=== PATIENT | female | born 1970 | race Caucasian/White ===

== ENCOUNTER → 2018-06-19 11:03 | Outpatient (CLI) | payer OTHER, SELFPAY ==
[2018-06-19 12:20] LABS: Hemoglobin A1C% w Est Avg Glu 9.6 % (4.0-6.0)
[2018-06-19 12:21] LABS: Add Manual Diff / Slide Review NO; Basophils Percent Auto 0.6 % (0-2); Eosinophils Percent Auto 1.9 % (2-4); Lymphocytes Percent Auto 16.4 % (25-40); Mean Corpuscular HGB Conc 33.4 % (30-36); Mean Corpuscular Hemoglobin 28.7 PG (26-34); Monocytes Percent Auto 8.2 % (3-14); Neutrophils Absolute Auto 8500 /uL (3000-5900); Neutrophils Percent Auto 72.9 % (50-75); Platelet Count 403 X10^3/uL (150-400); Red Blood Cell Count 4.54 X10^6/uL (4.0-5.2); Red Cell Distribution Width 14.7 % (11.6-14.8); White Blood Cell Count 11.7 X10^3/uL (4.5-11.0)
[2018-06-19 12:28] LABS: Alanine Aminotransferase 31 IU/L (9-52); Albumin 4.4 g/dL (3.5-5.0); Albumin Globulin Ratio 1.2 (1.0-2.8); Alkaline Phosphatase 88 U/L (38-126); Aspartate Aminotransferase 31 IU/L (14-36); BUN Creatinine Ratio 11.4 (6-22); Bilirubin Total 0.5 mg/dL (0.2-1.3); Blood Urea Nitrogen 8 mg/dL (7-17); Calcium 9.4 mg/dL (8.4-10.2); Carbon Dioxide 27 mmol/L (22-32); Chloride 96 mmol/L (98-107); Cholesterol 240 mg/dL (140-199); Estimated Glomerular Filt Rate > 60.0 mL/min (>60); Globulin 3.6 g/dL (1.7-4.1); Glucose 207 mg/dL (70-100); HDL Cholesterol 56 mg/dL (40-60); HEMOLYSIS < 15 (0-50); LDL Cholesterol Calculated 125 mg/dL (<100); Potassium 5.3 mmol/L (3.4-5.1); Sodium 135 mmol/L (137-145); Triglycerides 293 mg/dL (35-150)
== END ==
PROVIDERS: Visit Provider Internal Medicine
DX: E10.9 Type 1 diabetes mellitus without complications (principal); E73.9 Lactose intolerance, unspecified
CPT/HCPCS: 36415; 80053; 80061; 83036; 85025

== ENCOUNTER → 2018-07-23 11:26 | Outpatient (CLI) | payer OTHER, SELFPAY | PROVIDERS: PCP Family Medicine | DX: Z23 Encounter for immunization (principal) | CPT/HCPCS: 90471; 90686 ==

== ENCOUNTER → 2018-09-14 09:51 | Outpatient (CLI) | payer OTHER, SELFPAY ==
--- NOTE | 2018-09-14 09:52 | DI.MG.S_ITS ---
BILATERAL DIGITAL SCREENING MAMMOGRAM 3D/2D WITH CAD: 09/14/2018 CLINICAL: Baseline exam. Routine screening. Family history of breast cancer. No prior exams were available for comparison. There are scattered fibroglandular elements in both breasts. Current study was also evaluated with a Computer Aided Detection (CAD) system. There is a 1.2 cm oval circumscribed mass in the upper outer left breast at posterior depth demonstrating central fat attenuation consistent with a benign lymph node in the left breast. No significant masses, calcifications, or other findings are seen in either breast. IMPRESSION: There is no mammographic evidence of malignancy. A 1 year screening mammogram is recommended. This exam was interpreted at Station ID: [id number]. NOTE: For mammograms, a report in lay terms will be sent to the patient. Approximately 15% of breast malignancies will not be visualized mammographically. In the management of a palpable breast mass, a negative mammogram must not discourage biopsy of a clinically suspicious lesion. Electronically Signed By: Cedric Wolfe M.D. ecl/:09/16/2018 09:37:06 letter sent: Normal Exam ACR BI-RADS Category 2: Benign Finding(s) 3342F
== END ==
PROVIDERS: PCP Family Medicine; Visit Provider Family Medicine
DX: Z12.31 Encounter for screening mammogram for malignant neoplasm of breast (principal); Z80.3 Family history of malignant neoplasm of breast
CPT/HCPCS: 77063; 77067

== ENCOUNTER → 2018-10-28 12:51 | Outpatient (CLI) | payer OTHER, SELFPAY ==
--- NOTE | 2018-10-28 12:54 | DI.RAD.S_ITS ---
PROCEDURE: XR FINGER RT MIN 2V INDICATIONS: Finger swelling post cut 2wks TECHNIQUE: AP hand, 2 views of the fourth finger(s) acquired. COMPARISON: None. FINDINGS: Bones: No fractures or dislocations. No suspicious bony lesions. Soft tissues: No suspicious soft tissue calcifications. There is swelling over the dorsal aspect of the fourth proximal interphalangeal joint without visualized foreign body or underlying osteomyelitis. IMPRESSION: Focal soft tissue swelling as discussed, fourth proximal interphalangeal joint region dorsally. No osteomyelitis. Dictated by: Casper Shah M.D. on 10/28/2018 at 13:24 Approved by: Casper Shah M.D. on 10/28/2018 at 13:25
== END ==
PROVIDERS: PCP Family Medicine; Visit Provider Physician Assistant
DX: M79.644 Pain in right finger(s) (principal); M79.89 Other specified soft tissue disorders
CPT/HCPCS: 73140

== ENCOUNTER 2018-10-29 15:23 | Emergency (ER) | payer OTHER, SELFPAY ==
[2018-10-29 15:29] VITALS: BP 151/93; PULSE 85; RESP 14; TEMP 37.2; O2SAT 100; BMI 31.3
--- NOTE | 2018-10-29 17:52 | ED_ITS ---
HPI - Extremity Injury (Upper) <WILLIAMS Jacobs - Last Filed: 10/29/18 22:01> General Chief Complaint: Extremity Injury, Upper Stated Complaint: RIGHT HAND RING FINGER INFECTION Time Seen by Provider: 10/29/18 17:19 Source: patient Mode of arrival: ambulatory Limitations: no limitations History of Present Illness HPI narrative: 48-year-old female with history of diabetes and is a nonsmoker here for complaint of worsening swelling and pain into her right ring finger. She states that she accidentally cut the finger right before [place] approximately 3 weeks ago and she has had pain and redness to that area since then. She reports the pain worsened today. She denies any drainage from the area. Increased pain with motion of the right finger. No fevers no chills. She was seen in the walk-in clinic yesterday with x-ray that did not show any bony involvement. She states that her tetanus is up-to-date. No other concerns or complaints at this timeframe. complaint: injury to: right and finger Related Data Home Medications Medication Instructions Recorded Confirmed duloxetine 60 mg PO DAILY 10/29/18 10/29/18 Previous Rx's Medication Instructions Recorded insulin aspart U-100 100 unit/mL 100 unit CONTINUOUS SUBCUTANEOUS 06/19/18 subcutaneous solution INFUSION DAILY #30 ml [CONTOUR TEST STRIPS ] #150 strip 08/21/18 metformin 500 mg tablet 500 mg PO BID #180 tab 09/06/18 clindamycin HCl 300 mg PO QID #28 cap 10/29/18 Allergies Allergy/AdvReac Type Severity Reaction Status Date / Time amoxicillin Allergy Mild HIVES Verified 10/29/18 15:29 Sulfa (Sulfonamide Allergy Mild HIVES/RASH Verified 10/29/18 15:29 Antibiotics) Review of Systems <WILLIAMS Jacobs - Last Filed: 10/29/18 22:01> Constitutional Denies chills, Denies fever(s), Denies lethargy and Denies weakness Eyes Denies change in vision, Denies eye discharge, Denies irritation and Denies loss of vision ENT Ears, Nose, Mouth, and Throat: Denies change in voice, Denies neck pain and Denies sore throat Cardiovascular Denies chest pain, Denies irregular heart rhythm, Denies lightheadedness, Denies palpitations, Denies dyspnea, Denies dyspnea on exertion and Denies orthopnea Respiratory Denies cough, Denies dyspnea, Denies dyspnea on exertion and Denies wheezing Gastrointestinal Gastrointestinal: Denies abdominal pain, Denies change in bowel habits, Denies diarrhea, Denies nausea and Denies vomiting Genitourinary Denies hematuria, Denies flank pain, Denies urinary incontinence and Denies urinary urgency Musculoskeletal Denies neck pain Comments: Swelling and redness worsening to right ring finger Integumentary/Breasts Denies pruritus, Denies erythema, Denies rash and Denies wounds Neurologic Denies confusion, Denies loss of vision and Denies weakness Psychiatric Denies anxiety, Denies confusion, Denies depression, Denies homicidal ideation and Denies suicidal ideation Endocrine Denies palpitations Allergic/Immunologic Denies wheezing Exam <WILLIAMS Jacobs - Last Filed: 10/29/18 22:01> Initial Vital Signs Initial Vital Signs: Vital Signs Temperature 98.9 F 10/29/18 15:29 Pulse Rate 85 10/29/18 15:29 Respiratory Rate 14 10/29/18 15:29 Blood Pressure 151/93 H 10/29/18 15:29 Pulse Oximetry 100 10/29/18 15:29 Const General: cooperative and well developed Nutritional Appearance: well nourished Orientation: alert, awake, oriented x3 and not confused HENMT Face and sinus: sinus tenderness Mouth: oral mucosae normal and moist mucous membranes Eyes Conjunctivae: conjunctivae normal Sclera: sclerae normal Pupils: PERRL EOM: EOM intact bilaterally Resp Effort & Inspection: normal respiratory effort, able to speak in complete sentences, no respiratory distress and no use of accessory muscles Auscultation: clear to auscultation bilaterally, no rales, no rhonchi and no wheezes Cardio Rate: regular rate Rhythm: regular rhythm Heart Sounds: no click, no gallops, no murmurs and no rubs Pulses: normal peripheral pulses Skin General: no rashes or lesions noted, No jaundice and No petechiae Neuro General: alert, oriented x3, gait normal and no focal motor deficits Speech: speech normal Extrem Other: Swelling and redness to the dorsal aspect of the right ring finger over the PIP joint. No induration or fluctuance. Distal sensation is intact. Distal range of motion is intact. Distal cap refill less than 2 sec. <Giselle Marino DO - Last Filed: 10/30/18 21:55> Initial Vital Signs Initial Vital Signs: Vital Signs Temperature 98.9 F 10/29/18 15:29 Pulse Rate 85 10/29/18 15:29 Respiratory Rate 14 10/29/18 15:29 Blood Pressure 151/93 H 10/29/18 15:29 Pulse Oximetry 100 10/29/18 15:29 Procedures <WILLIAMS Jacobs - Last Filed: 10/29/18 22:01> Abscess I/D Site: other (Right ring finger) Side (if applicable): right Local Anesthetic: lidocaine 1% Amount of anesthesia used (mL): 2 Technique: needle aspiration Amount of fluid expressed (mL): 2 Irrigation: No Packing used?: none Course <WILLIAMS Jacobs - Last Filed: 10/29/18 22:01> Orders Ordered: ED Orders 10/29/18 19:54 Wound Culture and Gram Stain Stat Vital Signs - 8 hr 10/29/18 15:29 10/29/18 17:56 Temperature 98.9 F Pulse Rate 85 83 Respiratory Rate 14 16 Blood Pressure 151/93 H Blood Pressure [Left Arm] 138/83 Pulse Oximetry 100 98 <Giselle Marino DO - Last Filed: 10/30/18 21:55> Orders Ordered: ED Orders 10/29/18 19:54 Wound Culture and Gram Stain Stat Vital Signs - 8 hr 10/29/18 15:29 10/29/18 17:56 Temperature 98.9 F Pulse Rate 85 83 Respiratory Rate 14 16 Blood Pressure 151/93 H Blood Pressure [Left Arm] 138/83 Pulse Oximetry 100 98 MDM - Extremity Injury (Upper) <WILLIAMS Jacobs - Last Filed: 10/29/18 22:01> Lab Data Point of Care Testing Glucose POC 141 MDM Narrative Medical decision making narrative: Small incision was made to the dorsal aspect of the right ring finger and small amount of purulent drainage was removed. She is placed on clindamycin to treat for cellulitis/abscess. [id number] Tylenol or Motrin as needed for any discomfort. Follow up with primary care provider in the next few days for re-evaluation. For any worsening symptoms return to the emergency room. Wound culture was obtained and is pending for sensitivities <Giselle Marino DO - Last Filed: 10/30/18 21:55> Lab Data Point of Care Testing Glucose POC 141 Discharge Plan Departure Patient Disposition: Home Clinical Impression: Abscess of right ring finger Discharge Date/Time: 10/29/18 20:04 Interventions: ED Discharge Assessment Last Done: 10/29/18 20:03 Instructions: Incision and Drainage of a Skin Abscess Activity Restrictions/Additional Instructions: Small incision was made into the swelling to the right ring finger with a small amount of purulent drainage was removed. Wound culture is obtained and is pending for sensitivity. Follow up with primary care provider in the next several days for re-evaluation. You are prescribed an antibiotic called clindamycin use as directed. Use [id number] Tylenol or Motrin as needed for any discomfort. Dress wound daily with bacitracin and dressing until healed. For any worsening symptoms return emergency room. Prescriptions: New clindamycin HCl 300 mg capsule 300 mg PO QID Qty: 28 RF: 0 No Action insulin aspart U-100 [Novolog U-100 Insulin aspart] 100 unit/mL solution 100 unit Continuous Subcutaneous Infusion DAILY Qty: 30 RF: 6 [CONTOUR TEST STRIPS ] .Route .MEDSUPPLY Qty: 150 RF: 3 metformin 500 mg tablet 500 mg PO BID Qty: 180 RF: 1 duloxetine 60 mg capsule,delayed release(DR/EC) 60 mg PO DAILY RF: 0 Referrals: Edie Dela Cruz MD [Primary Care Provider] - <Giselle Marino DO - Last Filed: 10/30/18 21:55> Cosign ED Attending Hipolito Attestation: I was immediately available in the department for consultation. Documentation has been reviewed. I agree with assessment and plan.
--- NOTE | 2018-10-29 17:55 | PC.NURSE ---
right 4th digit, swelling, limited range of motion due to swelling. pt wearing ring middle finger, pt requested to cut the ring.
[2018-10-29 17:56] VITALS: BP 138/83; PULSE 83; RESP 16; O2SAT 98
== END 2018-10-29 20:04 | disposition home or self-care (01) ==
PROVIDERS: Emergency Provider Nurse Practitioner Family; PCP Family Medicine
DX: L02.511 Cutaneous abscess of right hand (principal); W26.8XXA Contact with other sharp object(s), not elsewhere classified, initial encounter
CPT/HCPCS: 10060; 82962; 87070; 87075; 87077; 87147; 87186; 87205; 99283

== ENCOUNTER → 2018-11-08 10:00 | Outpatient (CLI) | payer OTHER, SELFPAY ==
--- NOTE | 2018-11-08 10:03 | DI.RAD.S_ITS ---
PROCEDURE: XR HAND RT MIN 3V INDICATIONS: RT ring finger infection TECHNIQUE: 3 views of the hand(s) acquired. COMPARISON: None. FINDINGS: Bones: No fractures or dislocations. Carpal bones are normally aligned. No suspicious bony lesions. Soft tissues: No suspicious soft tissue calcifications. IMPRESSION: No acute fracture. No osseous lesion. If symptoms and/or clinical suspicion for pathology persist, further assessment with repeat, or advanced imaging (e.g., CT, MRI, or bone scan) may be helpful for further assessment. Dictated by: Miguelito Price M.D. on 11/08/2018 at 11:17 Approved by: Miguelito rPice M.D. on 11/08/2018 at 11:18
== END ==
PROVIDERS: PCP Family Medicine; Visit Provider Family Medicine
DX: L02.511 Cutaneous abscess of right hand (principal); E10.9 Type 1 diabetes mellitus without complications
CPT/HCPCS: 73130

== ENCOUNTER → 2018-12-31 11:44 | Outpatient (CLI) | payer OTHER, SELFPAY ==
[2018-12-31 12:27] LABS: Hemoglobin A1C% w Est Avg Glu 10.2 % (4.0-6.0)
[2018-12-31 12:28] LABS: HEMOLYSIS < 15 (0-50); Iron 32 ug/dL (37-170)
[2018-12-31 12:39] LABS: Percent Iron Saturation 7 % (15-50); Total Iron Binding Capacity 450 ug/dL (265-497); Transferrin 341 mg/dL (206-381)
[2018-12-31 12:59] LABS: Thyroid Stimulating Hormone 0.79 uIU/mL (0.47-4.68)
== END ==
PROVIDERS: PCP Family Medicine; Visit Provider Internal Medicine Endocrinology, Diabetes & Metabolism
DX: E10.8 Type 1 diabetes mellitus with unspecified complications (principal); D50.9 Iron deficiency anemia, unspecified
CPT/HCPCS: 36415; 83036; 83540; 83550; 84443

== ENCOUNTER 2019-03-26 10:58 | Outpatient (RCR) | payer OTHER, SELFPAY ==
--- NOTE | 2019-03-26 18:59 | PT.OIE ---
Current Diagnoses Other specified joint disorders, right knee (03/26/19) Strain of right quadriceps muscle, fascia and tendon, initial encounter (03/26/19) Past Medical History (Last Reviewed 10/29/18 @ 19:46 by WILLIAMS Jacobs) Peripheral neuropathy (Chronic) Iron deficiency anemia (Chronic 2014) Type 1 diabetes mellitus (Chronic) Provider Visit Care Team Role Provider Type Edie Dela Cruz MD Primary Care Provider Physician Specialty: Family Practice Address: [address] [place] [address], [address] Email: [email or web address] Adarsh Shook MD Attending Provider Physician Specialty: Orthopedic Surgery Address: [address] [place] [address], [address] Email: [email or web address] Physical Therapy Initial Evaluation PT-OP-A Visit Information Start: 03/25/19 15:35 Freq: Status: Active Protocol: Document 03/26/19 11:26 [facility] (Rec: 03/26/19 18:59 [facility] [id number]) Out-Patient Physical Therapy Visit Information Visit Information Visit Type Initial Evaluation Visit Start Time 11:22 Visit Stop Time 12:07 Total Visit Minutes 45 Visit Number 1 Number of HEDIS MANAGER Visits 0 PT-OP-B Current Condition Start: 03/25/19 15:35 Freq: Status: Active Protocol: Document 03/26/19 11:26 [facility] (Rec: 03/26/19 12:14 [facility] [id number]) Current Condition History of Current Condition History of Current Condition Pt reports back in January she had a lot of pain and couldn't go up the stairs to work without pain. 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 Pt reports it was a gradual onset and got worse but has gotten better since she went to [place]. She has used a lot of ibuprofen & acupuncture that helped. Pt reports also R hip flexor and lat hip pain. Pt limits her activity d/t fear of pain starting to be worse again. Treatment Goals Patient/Caregiver Goals to get stronger and get exercises to do; prevent further injury PT-OP-C Subjective Start: 03/25/19 15:35 Freq: Status: Active Protocol: Document 03/26/19 11:26 [facility] (Rec: 03/26/19 12:14 [facility] [id number]) OP-PT Pain Assessment Location R knee Pain Location Details ant knee by patella Intensity 2 Scale Used Numeric (1 - 10) Description Aching Pulling Description- Other pain was worse when it was hurting more Frequency Occasional Pain Duration at least a few min Variations/Patterns also R hip flexor & lat hip Other Pain Aggravating Factors standing up, up stairs, possibly hills, 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 Other Pain Alleviating Factors stretch PT-OP-F Manual Assessment Start: 03/25/19 15:35 Freq: Status: Active Protocol: Document 03/26/19 11:26 [facility] (Rec: 03/26/19 12:14 [facility] [id number]) Manual Assessments Soft Tissue Assessment Soft Tissue Mobility Assessment R HS, ITB, calf tightness; tenderness along joint lines Joint Mobility Assessment Joint Mobility Assessment ER of femur & tibia B PT-OP-G Mobility & Gait Start: 03/25/19 15:35 Freq: Status: Active Protocol: Document 03/26/19 11:26 [facility] (Rec: 03/26/19 12:14 [facility] [id number]) OP Gait Assessment Comments Gait Comments Pt has lean to left in standing with gait. Dec post depression during gait PT-OP-K Range of Motion Start: 03/25/19 15:35 Freq: Status: Active Protocol: Document 03/26/19 11:26 [facility] (Rec: 03/26/19 12:14 [facility] [id number]) Hip Goniometric Range of Motion Hip Measured in Degrees Left Active Flexion w/Knee Flexed 110 Straight Leg Raise 73 Abduction 38 Right Active Flexion w/Knee Flexed 91 Straight Leg Raise 70 Abduction 26 Knee Goniometric Range of Motion Knee Measured in Degrees Left Flexion Active (degrees) 130 Extension Active (degrees) 0 Right Flexion Active (degrees) 125 Extension Active (degrees) 0 PT-OP-L Special Tests Start: 03/25/19 15:35 Freq: Status: Active Protocol: Document 03/26/19 11:26 [facility] (Rec: 03/26/19 12:14 [facility] [id number]) Special Tests Knee Special Tests Den Test Test Results neg Valgus- 25 Degrees Test Results neg varus & valgus & at 0 Apley's Compression Test Results neg Roney's Test Results neg Karri Test Results quads & RF tight PT-OP-M Strength Start: 03/25/19 15:35 Freq: Status: Active Protocol: Document 03/26/19 11:26 [facility] (Rec: 03/26/19 12:14 [facility] [id number]) Hip Strength Hip Manual Muscle Testing Left Flexion (L2) 5 Normal Extension (S1) 3+ Fair+ Abduction 5 Normal Adduction 4 Good External Rotation 4+ Good+ Internal Rotation 4+ Good+ Right Flexion (L2) 5 Normal Extension (S1) 3+ Fair+ Abduction 4 Good Adduction 4 Good External Rotation 4 Good Internal Rotation 4+ Good+ Knee Strength Knee Manual Muscle Testing Left Flexion (S2) 5 Normal Extension (L3) 5 Normal Right Flexion (S2) 5 Normal Extension (L3) 4+ Good+ Ankle/Foot Strength Ankle and Foot Manual Muscle Testing Left Dorsiflexion (L4) 5 Normal Plantarflexion (S1) 5 Normal Right Dorsiflexion (L4) 5 Normal Plantarflexion (S1) 5 Normal PT-OP-Q Treatments Start: 03/25/19 15:35 Freq: Status: Active Protocol: Document 03/26/19 11:26 [facility] (Rec: 03/26/19 18:59 [facility] [id number]) Therapeutic Exercises Sitting Exercises stretch Sitting Exercise Name HS Side bilateral Reps/Minutes 30sec Standing Exercises wall squat Side bilateral Reps/Minutes 15 stretch Standing Exercise Name quads (knee to butt) and with LE on chair Side right Reps/Minutes 30sec PT-OP-T Assessment and Plan Start: 03/25/19 15:35 Freq: Status: Active Protocol: Document 03/26/19 11:26 [facility] (Rec: 03/26/19 18:59 [facility] [id number]) Physical Therapy Assessment Goals walking Detail Technician Goal (LTG) Pt will be able to go for at least a 2 mile hike without pain. LTG Duration 05/26/19 strength Short Term Goal (STG) Pt will be indep with HEP STG Duration 04/25/19 Mcc Goal (LTG) Pt will have 5/5 LE strength in order to allow her to return to her typical activities without pain. LTG Duration 05/26/19 stairs Detail Technician Goal (LTG) Pt will be able to ascend and descend 26 steps without pain. LTG Duration 05/26/19 Assessment Summary Assessment Pt presents with R ant knee pain that was unable to be elicited today. She has tenderness along joint line & ITB, which may be contributing to her symptoms. She has improved with her pain by resting, but would benefit from skilled PT in order to improve her mobility and help her return to her gardening, walking, and stairs climbing needed at work without pain. Physical Therapy Plan Frequency and Duration Frequency of Treatment 1x/Week Duration of Treatment 2 months Plan of Care Start Date 03/26/19 Plan of Care End Date 05/26/19 Therapeutic Interventions Therapeutic Interventions Aquatic Therapy Balance Training Gait Training Home Exercise Program Joint Mobilizations Manual Therapy Neuromuscular Re-education Patient/Caregiver Education Self-Care/Home Management Soft Tissue Mobilization Taping Therapeutic Activities Therapeutic Exercises Modalities Cold Pack/Ice Massage Electric Stimulation Hot Packs Infrared Therapy Ultrasound Next Visit Focus/Plan Next Note Type Treatment Note Next Visit Plan hip ext, abd & add strengthening, squats, STM as needed
--- NOTE | 2019-03-26 18:59 | PT.OPPOC ---
Current Diagnoses Other specified joint disorders, right knee (03/26/19) Strain of right quadriceps muscle, fascia and tendon, initial encounter (03/26/19) Provider Visit Care Team Role Provider Type Edie Dela Cruz MD Primary Care Provider Physician Specialty: Family Practice Address: [address] [place] [address], [address] Email: [email or web address] Adarsh Shook MD Attending Provider Physician Specialty: Orthopedic Surgery Address: [address] [place] [address], [address] Email: [email or web address] Plan Of Care PT-OP-T Assessment and Plan Start: 03/25/19 15:35 Freq: Status: Active Protocol: Document 03/26/19 11:26 [facility] (Rec: 03/26/19 18:59 [facility] [id number]) Physical Therapy Assessment Goals walking Skilled Nursing Goal (LTG) Pt will be able to go for at least a 2 mile hike without pain. LTG Duration 05/26/19 strength Short Term Goal (STG) Pt will be indep with HEP STG Duration 04/25/19 Skilled Nursing Goal (LTG) Pt will have 5/5 LE strength in order to allow her to return to her typical activities without pain. LTG Duration 05/26/19 stairs Ornamenter Goal (LTG) Pt will be able to ascend and descend 26 steps without pain. LTG Duration 05/26/19 Assessment Summary Assessment Pt presents with R ant knee pain that was unable to be elicited today. She has tenderness along joint line & ITB, which may be contributing to her symptoms. She has improved with her pain by resting, but would benefit from skilled PT in order to improve her mobility and help her return to her gardening, walking, and stairs climbing needed at work without pain. Physical Therapy Plan Frequency and Duration Frequency of Treatment 1x/Week Duration of Treatment 2 months Plan of Care Start Date 03/26/19 Plan of Care End Date 05/26/19 Therapeutic Interventions Therapeutic Interventions Aquatic Therapy Balance Training Gait Training Home Exercise Program Joint Mobilizations Manual Therapy Neuromuscular Re-education Patient/Caregiver Education Self-Care/Home Management Soft Tissue Mobilization Taping Therapeutic Activities Therapeutic Exercises Modalities Cold Pack/Ice Massage Electric Stimulation Hot Packs Infrared Therapy Ultrasound Next Visit Focus/Plan Next Note Type Treatment Note Next Visit Plan hip ext, abd & add strengthening, squats, STM as needed Plan of Care Dates Plan of Care Start Date 03/26/19 Plan of Care End Date 05/26/19 Please Sign and Return: I have reviewed this Plan of Care and certify that the skilled therapy services above are required to meet the patient?s needs. Physician Signature Date Printed Name and Credentials Clinical Instructor Signature Printed Name and Credentials
--- NOTE | 2019-06-02 09:04 | PT.OPDS ---
Current Diagnoses Other specified joint disorders, right knee (03/26/19) Strain of right quadriceps muscle, fascia and tendon, initial encounter (03/26/19) Provider Visit Care Team Role Provider Type Edie Dela Cruz MD Primary Care Provider Physician Specialty: Family Practice Address: [address] [place] [address], [id number] Email: [email or web address] Adarsh Shook MD Attending Provider Physician Specialty: Orthopedic Surgery Address: [address] [place] [address], [id number] Email: [email or web address] Visit Number Visit Number 1 Discharge Summary PT-OP-B Current Condition Start: 03/25/19 15:35 Freq: Status: Active Protocol: Document 03/26/19 11:26 [facility] (Rec: 03/26/19 12:14 [facility] [id number]) Current Condition History of Current Condition History of Current Condition Pt reports back in January she had a lot of pain and couldn't go up the stairs to work without pain. 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 Pt reports it was a gradual onset and got worse but has gotten better since she went to MD. She has used a lot of ibuprofen & acupuncture that helped. Pt reports also R hip flexor and lat hip pain. Pt limits her activity d/t fear of pain starting to be worse again. Treatment Goals Patient/Caregiver Goals to get stronger and get exercises to do; prevent further injury PT-OP-C Subjective Start: 03/25/19 15:35 Freq: Status: Active Protocol: Document 03/26/19 11:26 [facility] (Rec: 03/26/19 12:14 [facility] [id number]) OP-PT Pain Assessment Location R knee Pain Location Details ant knee by patella Intensity 2 Scale Used Numeric (1 - 10) Description Aching Pulling Description- Other pain was worse when it was hurting more Frequency Occasional Pain Duration at least a few min Variations/Patterns also R hip flexor & lat hip Other Pain Aggravating Factors standing up, up stairs, possibly hills, 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 Other Pain Alleviating Factors stretch PT-OP-F Manual Assessment Start: 03/25/19 15:35 Freq: Status: Active Protocol: Document 03/26/19 11:26 [facility] (Rec: 03/26/19 12:14 [facility] [id number]) Manual Assessments Soft Tissue Assessment Soft Tissue Mobility Assessment R HS, ITB, calf tightness; tenderness along joint lines Joint Mobility Assessment Joint Mobility Assessment ER of femur & tibia B PT-OP-G Mobility & Gait Start: 03/25/19 15:35 Freq: Status: Active Protocol: Document 03/26/19 11:26 [facility] (Rec: 03/26/19 12:14 [facility] [id number]) OP Gait Assessment Comments Gait Comments Pt has lean to left in standing with gait. Dec post depression during gait PT-OP-K Range of Motion Start: 03/25/19 15:35 Freq: Status: Active Protocol: Document 03/26/19 11:26 [facility] (Rec: 03/26/19 12:14 [facility] [id number]) Hip Goniometric Range of Motion Hip Left Active Flexion w/Knee Flexed 110 Straight Leg Raise 73 Abduction 38 Right Active Flexion w/Knee Flexed 91 Straight Leg Raise 70 Abduction 26 Knee Goniometric Range of Motion Knee Left Flexion Active (degrees) 130 Extension Active (degrees) 0 Right Flexion Active (degrees) 125 Extension Active (degrees) 0 PT-OP-L Special Tests Start: 03/25/19 15:35 Freq: Status: Active Protocol: Document 03/26/19 11:26 [facility] (Rec: 03/26/19 12:14 [facility] [id number]) Special Tests Knee Special Tests Den Test Test Results neg Valgus- 25 Degrees Test Results neg varus & valgus & at 0 Apley's Compression Test Results neg Roney's Test Results neg Karri Test Results quads & RF tight PT-OP-M Strength Start: 03/25/19 15:35 Freq: Status: Active Protocol: Document 03/26/19 11:26 [facility] (Rec: 03/26/19 12:14 [facility] [id number]) Hip Strength Hip Manual Muscle Testing Left Flexion (L2) 5 Normal Extension (S1) 3+ Fair+ Abduction 5 Normal Adduction 4 Good External Rotation 4+ Good+ Internal Rotation 4+ Good+ Right Flexion (L2) 5 Normal Extension (S1) 3+ Fair+ Abduction 4 Good Adduction 4 Good External Rotation 4 Good Internal Rotation 4+ Good+ Knee Strength Knee Manual Muscle Testing Left Flexion (S2) 5 Normal Extension (L3) 5 Normal Right Flexion (S2) 5 Normal Extension (L3) 4+ Good+ Ankle/Foot Strength Ankle and Foot Manual Muscle Testing Left Dorsiflexion (L4) 5 Normal Plantarflexion (S1) 5 Normal Right Dorsiflexion (L4) 5 Normal Plantarflexion (S1) 5 Normal PT-OP-T Assessment and Plan Start: 03/25/19 15:35 Freq: Status: Active Protocol: Document 06/02/19 09:01 [facility] (Rec: 06/02/19 09:04 [facility] [id number]) Physical Therapy Plan Discharge Physical Therapy Discharge Reasons Patient Request Discharge Comments Pt came for eval and a few exercises were given. Pt is d/ c from PT at this time d/t pt asking for d/c as she does not plan to follow up.
== END 2019-06-03 12:05 | disposition home or self-care (01) ==
LOC: PHYS 10:58
PROVIDERS: PCP Family Medicine; Visit Provider Orthopaedic Surgery
DX: S76.111A Strain of right quadriceps muscle, fascia and tendon, initial encounter (principal); M25.861 Other specified joint disorders, right knee
CPT/HCPCS: 97110; 97161

== ENCOUNTER → 2019-07-16 11:54 | Outpatient (CLI) | payer OTHER, SELFPAY ==
[2019-07-16 13:11] LABS: Alanine Aminotransferase 34 IU/L (9-52); Albumin 4.3 g/dL (3.5-5.0); Albumin Globulin Ratio 1.3 (1.0-2.8); Alkaline Phosphatase 69 U/L (38-126); Aspartate Aminotransferase 28 IU/L (14-36); BUN Creatinine Ratio 14.3 (6-22); Bilirubin Total 0.4 mg/dL (0.2-1.3); Blood Urea Nitrogen 10 mg/dL (7-17); Calcium 9.4 mg/dL (8.4-10.2); Carbon Dioxide 27 mmol/L (22-32); Chloride 93 mmol/L (98-107); Cholesterol 127 mg/dL (140-199); Estimated Glomerular Filt Rate > 60.0 mL/min (>60); Globulin 3.2 g/dL (1.7-4.1); Glucose 259 mg/dL (70-100); HDL Cholesterol 67 mg/dL (40-60); HEMOLYSIS < 15 (0-50); LDL Cholesterol Calculated 37 mg/dL (<100); Potassium 4.9 mmol/L (3.4-5.1); Sodium 132 mmol/L (137-145); Total Protein 7.5 g/dL (6.3-8.2); Triglycerides 116 mg/dL (35-150)
== END ==
PROVIDERS: PCP Family Medicine; Visit Provider Family Medicine
DX: E78.00 Pure hypercholesterolemia, unspecified (principal)
CPT/HCPCS: 36415; 80053; 80061

== ENCOUNTER → 2019-07-22 15:15 | Outpatient (CLI) | payer OTHER, SELFPAY | PROVIDERS: PCP Family Medicine | DX: Z23 Encounter for immunization (principal) | CPT/HCPCS: 90471; 90686 ==

== ENCOUNTER → 2019-07-24 13:46 | Outpatient (CLI) | payer OTHER, SELFPAY ==
[2019-07-24 15:49] LABS: HEMOLYSIS < 15 (0-50); Iron 33 ug/dL (37-170)
[2019-07-24 16:00] LABS: Percent Iron Saturation 8 % (15-50); Total Iron Binding Capacity 401 ug/dL (265-497); Transferrin 323 mg/dL (206-381)
[2019-07-24 16:03] LABS: Hemoglobin A1C% w Est Avg Glu 9.4 % (4.0-6.0)
== END ==
PROVIDERS: PCP Family Medicine; Visit Provider Family Medicine
DX: E10.9 Type 1 diabetes mellitus without complications (principal); G62.9 Polyneuropathy, unspecified
CPT/HCPCS: 36415; 83036; 83540; 83550

== ENCOUNTER → 2019-11-03 09:57 | Outpatient (CLI) | payer OTHER, SELFPAY ==
--- NOTE | 2019-11-03 09:59 | DI.RAD.S_ITS ---
PROCEDURE: XR KNEE LT 3V INDICATIONS: open wound on knee, diabetic, ensure no bone involvement TECHNIQUE: 3 views of the knee were acquired. COMPARISON: [facility], , KNEE 3V RIGHT, 04/03/2013, 13:30. FINDINGS: Bones: No fractures or dislocations. No suspicious bony lesions. Soft tissues: No joint effusion. No suspicious soft tissue calcifications. IMPRESSION: Normal for age, source of current knee pain symptoms is not seen. There is no sign of joint effusion or gas in the soft tissues, or foreign body. Dictated by: Casper Shah M.D. on 11/03/2019 at 12:20 Approved by: Casper Shah M.D. on 11/03/2019 at 12:21
== END ==
PROVIDERS: PCP Family Medicine; Visit Provider Family Medicine
DX: E11.628 Type 2 diabetes mellitus with other skin complications (principal); S81.002A Unspecified open wound, left knee, initial encounter
CPT/HCPCS: 73562

== ENCOUNTER → 2020-03-11 11:51 | Outpatient (CLI) | payer OTHER, SELFPAY ==
[2020-03-11 12:40] LABS: Add Manual Diff / Slide Review NO; Basophils Absolute Auto 100 /uL (0-100); Basophils Percent Auto 0.8 % (0-2); Eosinophils Absolute Auto 100 /uL (0-450); Eosinophils Percent Auto 0.9 % (2-4); Hematocrit 32.5 % (36-46); Hemoglobin 10.3 g/dL (12.0-16.0); Lymphocytes Absolute Auto 900 /uL (1100-4500); Lymphocytes Percent Auto 9.8 % (25-40); Mean Corpuscular HGB Conc 31.8 % (30-36); Mean Corpuscular Hemoglobin 23.8 PG (26-34); Mean Corpuscular Volume 74.8 fL (80-100); Monocytes Absolute Auto 800 /uL (0-900); Monocytes Percent Auto 8.6 % (3-14); Neutrophils Absolute Auto 7600 /uL (1500-7000); Neutrophils Percent Auto 79.9 % (50-75); Platelet Count 369 X10^3/uL (150-400); Red Blood Cell Count 4.34 X10^6/uL (4.0-5.2); White Blood Cell Count 9.5 X10^3/uL (4.5-11.0)
[2020-03-11 13:15] LABS: HEMOLYSIS < 15 (0-50); Iron 34 ug/dL (37-170)
[2020-03-11 13:27] LABS: Percent Iron Saturation 8 % (15-50); Total Iron Binding Capacity 403 ug/dL (265-497); Transferrin 318 mg/dL (206-381)
== END ==
PROVIDERS: PCP Family Medicine; Referring Provider Family Medicine; Visit Provider Family Medicine
DX: R53.83 Other fatigue (principal); R63.8 Other symptoms and signs concerning food and fluid intake
CPT/HCPCS: 36415; 83540; 83550; 85025

== ENCOUNTER → 2020-04-22 14:58 | Outpatient (CLI) | payer OTHER, SELFPAY ==
[2020-04-26 04:37] LABS: COVID19 Sendout Not Detected (Not Detected)
== END ==
PROVIDERS: PCP Family Medicine; Visit Provider Physician Assistant
DX: Z03.818 Encounter for observation for suspected exposure to other biological agents ruled out (principal)
CPT/HCPCS: 87635

== ENCOUNTER → 2020-07-22 17:32 | Outpatient (CLI) | payer OTHER, SELFPAY | PROVIDERS: PCP Family Medicine; Referring Provider Internal Medicine; Visit Provider Internal Medicine | DX: Z23 Encounter for immunization (principal) | CPT/HCPCS: 90471; 90686 ==

== ENCOUNTER 2020-08-11 16:03 | Emergency (ER) | payer OTHER, SELFPAY ==
[2020-08-11 16:10] VITALS: BP 148/85; PULSE 104; RESP 22; TEMP 36.4; O2SAT 98
--- NOTE | 2020-08-11 16:43 | ED.WOUNDLAC ---
HPI - Wound/Laceration <WILLIAMS Monae - Last Filed: 08/11/20 20:21> General Chief Complaint: Wound/Laceration Stated Complaint: rt hand cut Time Seen by Provider: 08/11/20 16:18 Source: patient Mode of arrival: Ambulatory History of Present Illness HPI narrative: 49yo female presents emergency department for lacerations to her right hand. She states she was cleaning jars when a jar broke and lacerated her hand. She states the drawer broke in large pieces, all the pieces were present, states non are missing. Declines x-ray today. Patient states her last Tdap or is years ago. She denies taking any blood thinners. She does report she has a history of type 1 diabetes in gets infections very frequently from cuts. Patient denies any difficulty moving her fingers, numbness, tingling, fevers, chills, nausea, vomiting, or any other concerns. Related Data Previous Rx's Medication Instructions Recorded ondansetron 4 mg disintegrating 4 mg PO Q8H PRN #20 tab 05/14/19 tablet duloxetine 20 mg capsule,delayed See Rx Instructions .ROUTE 12/01/19 release .COMPLEX #30 capsule blood sugar diagnostic See Rx Instructions .ROUTE 01/26/20 .COMPLEX #150 unspecified escitalopram oxalate 10 mg tablet 10 mg PO DAILY #90 tab 03/10/20 metformin 500 mg tablet See Rx Instructions .ROUTE 03/19/20 .COMPLEX #180 tablet insulin aspart U-100 100 unit/mL 100 unit CONTINUOUS SUBCUTANEOUS 05/10/20 subcutaneous solution INFUSION DAILY #30 ml insulin aspart U-100 100 unit/mL 100 unit CONTINUOUS SUBCUTANEOUS 05/10/20 subcutaneous solution INFUSION DAILY #30 ml rosuvastatin 20 mg tablet 20 mg PO DAILY #30 tab 06/17/20 duloxetine 60 mg capsule,delayed 60 mg PO BID #60 cap 07/07/20 release propranolol 10 mg tablet 10 mg PO TID PRN #60 tab 07/29/20 Allergies Allergy/AdvReac Type Severity Reaction Status Date / Time amoxicillin Allergy Mild HIVES Verified 04/22/20 15:01 Sulfa (Sulfonamide Allergy Mild HIVES/RASH Verified 04/22/20 15:01 Antibiotics) Review of Systems <WILLIAMS Monae - Last Filed: 08/11/20 20:21> Review of Systems Narrative: REVIEW OF SYSTEMS: GENERAL: Denies fever or chills. HENT: Denies head trauma. EYE: Denies double vision or vision loss. CARDIOVASCULAR: Denies syncope. MUSCULOSKELETAL: Denies weakness, or deformities. INTEGUMENTARY: Complains of laceration, see HPI. NEURO: Denies numbness or tingling. Patient History <WILLIAMS Monae - Last Filed: 08/11/20 20:21> Medical History Iron deficiency anemia (Chronic 2015) Peripheral neuropathy (Chronic) Pure hypercholesterolemia (Chronic) Type 1 diabetes mellitus (Chronic) Social History marital status: number of children: 3 household members: family lives independently: Yes caregiver/support person: No housing: house education level: college occupational status: employed current occupational exposures/hazards: No Smoking Status: Former smoker alcohol intake: current substance use type: marijuana Smoking Status: Former smoker alcohol intake frequency: 0-2 drinks per day Substance Use Type: does not use Exam <WILLIAMS Monae - Last Filed: 08/11/20 20:21> Initial Vital Signs Initial Vital Signs: Vital Signs Temperature 97.6 F 08/11/20 16:10 Pulse Rate 104 H 08/11/20 16:10 Respiratory Rate 22 08/11/20 16:10 Blood Pressure 148/85 H 08/11/20 16:10 Pulse Oximetry 98 08/11/20 16:10 PHYSICAL EXAMINATION: GENERAL: Well groomed, alert, and cooperative. Answers questions promptly and appropriately. Vital signs noted. HENT: Normocephalic, atraumatic. RESPIRATORY: Normal respiratory rate, trachea midline, airway patent. No stridor, nasal flaring or accessory muscle use. MUSCULOSKELETAL: Patient has full range of motion and strength against resistance to all fingers and hand. Normal gait and coordination. Equal tone and mass bilaterally. EXTREMITIES: CMS intact. Moves all extremities. SKIN: Warm, dry, soft, appropriate color for ethnicity. A 9 cm laceration/flat noted to top of right hand proximal to 2nd MCP joint, no visualized tendons, no visualized foreign bodies or glass. Bleeding controlled post suture placement. A 2 cm superficial laceration noted to the back of right thumb between DIP and MCP joint. 1 cm superficial laceration noted to 5th digit between MIP and MCP joint, bleeding controlled with bandages. NEURO: Alert and Oriented X 3. Good coordination. PSYCH: Appropriate affect and mood. <Theodore Robert DO - Last Filed: 08/20/20 03:26> Initial Vital Signs Initial Vital Signs: Vital Signs Temperature 97.6 F 08/11/20 16:10 Pulse Rate 104 H 08/11/20 16:10 Respiratory Rate 22 08/11/20 16:10 Blood Pressure 148/85 H 08/11/20 16:10 Pulse Oximetry 98 08/11/20 16:10 Procedures <WILLIAMS Monae - Last Filed: 08/11/20 20:21> Laceration Repair Laceration 1: Site: upper extremity Side (If applicable): right Size (cm): 9 Description: flap Depth: simple, single layer Local Anesthetic: lidocaine 1% and bupivacaine 0.5% Amount of anesthesia used (mL): 7 Pre-repair: wound explored and irrigated extensively Skin layer closed with: nylon Size (cm): 4-0 Number of sutures: 9 Technique: simple, interrupted Course <WILLIAMS Monae - Last Filed: 08/11/20 20:21> Course Course Narrative: Tdap was updated. Bacitracin applied post suture placement, dressing applied. Orders Ordered: Discontinued Medications Bacitracin (Bacitracin) 1 applic TOP NOW ONE Stop: 08/11/20 16:36 Last Admin: 08/11/20 16:56 Dose: 1 applic Documented by: ANJUM Diphtheria/Tetanus/Acell Pertussis (Adacel) 0.5 ml IM .ONCE ONE Stop: 08/11/20 16:36 Last Admin: 08/11/20 16:57 Dose: 0.5 ml Documented by: ANJUM Lidocaine/Sodium Bicarbonate (Buffered Lidocaine 10 Ml Syr) 10 ml INJ NOW ONE Stop: 08/11/20 16:36 Last Admin: 08/11/20 16:57 Dose: 10 ml Documented by: ANJUM Vital Signs Vital signs: Vital Signs - 8 hr 08/11/20 16:10 08/11/20 17:35 Temperature 97.6 F Pulse Rate 104 H 99 H Respiratory Rate 22 16 Blood Pressure 148/85 H 137/74 Pulse Oximetry 98 98 <Theodore Robert DO - Last Filed: 08/20/20 03:26> Orders Ordered: Discontinued Medications Bacitracin (Bacitracin) 1 applic TOP NOW ONE Stop: 08/11/20 16:36 Last Admin: 08/11/20 16:56 Dose: 1 applic Documented by: ANJUM Diphtheria/Tetanus/Acell Pertussis (Adacel) 0.5 ml IM .ONCE ONE Stop: 08/11/20 16:36 Last Admin: 08/11/20 16:57 Dose: 0.5 ml Documented by: ANJUM Lidocaine/Sodium Bicarbonate (Buffered Lidocaine 10 Ml Syr) 10 ml INJ NOW ONE Stop: 08/11/20 16:36 Last Admin: 08/11/20 16:57 Dose: 10 ml Documented by: ANJUM Vital Signs Vital signs: Vital Signs - 8 hr 08/11/20 16:10 08/11/20 17:35 Temperature 97.6 F Pulse Rate 104 H 99 H Respiratory Rate 22 16 Blood Pressure 148/85 H 137/74 Pulse Oximetry 98 98 MDM - Wound/Laceration <WILLIAMS Monae - Last Filed: 08/11/20 20:21> Medical Records Attestation: I reviewed the patient's medical records. Lab Data Attestation: I reviewed the patient's lab results. MDM Narrative Medical decision making narrative: 49-year-old female presenting to the emergency department with laceration to right hand. Wound irrigated, explored extensively, no concern for foreign bodies. We did discuss x-ray, patient declined at this time as she states the glass broke in large pieces and does not believe any glasses in her hand. We discussed risks, she verbalized understanding. Sutures place, patient tolerated well. Patient reported she is type 1 diabetes and gets infections very quickly. Due to deep nature of laceration and this history, she was given cephalexin. She was encouraged to monitor 1 for worsening since infection MVC immediately they occur. Was concern for tendon involvement due to equal strength of fingers against resistance. She was encouraged to remove sutures in approximately 14 days. Patient agreed to plan of care verbalized understanding. Discharge Plan Departure Patient Disposition: Home Clinical Impression: Laceration Discharge Date/Time: 08/11/20 17:56 Instructions: DI for Laceration Repair Activity Restrictions/Additional Instructions: Thank you for entrusting me with your care today. As discussed, there are 9 sutures placed in your wound. These will need to be removed in approximately 14 days. Please leave the bandage in place for the next 24 hours, after that you may remove the bandage and wash the area gently with soap and water. Apply Neosporin or bacitracin to the area 1 to 2 times a day. Keep the area covered if it may be exposed to any dirt. No foreign bodies were found in your wound today. While there is low-risk for infection at this time, retained foreign bodies and infection are always possible with any cut or break in the skin. Please monitor the wound closely and be re-evaluated immediately if you develop any signs of infection such as pus, increasing redness, increasing pain, fevers, or any other concerns. Due to ear history of infection and diabetes, cephalexin has been prescribed. [facility] in [place]. Prescriptions: No Action ondansetron 4 mg tablet,disintegrating 4 mg PO Q8H PRN (Reason: nausea and vomiting) Qty: 20 RF: 0 escitalopram oxalate 10 mg tablet 10 mg PO DAILY Qty: 90 RF: 2 duloxetine 20 mg capsule,delayed release(DR/EC) See Rx Instructions .ROUTE .COMPLEX Qty: 30 RF: 5 Hold Instructions: Dose changed blood sugar diagnostic [Contour Next Test Strips] Strip See Rx Instructions .ROUTE .COMPLEX Qty: 150 RF: 2 metformin 500 mg tablet See Rx Instructions .ROUTE .COMPLEX Qty: 180 RF: 1 Novolog U-100 Insulin aspart 100 unit/mL solution 100 unit Continuous Subcutaneous Infusion DAILY Qty: 30 RF: 6 Novolog U-100 Insulin aspart 100 unit/mL solution 100 unit Continuous Subcutaneous Infusion DAILY Qty: 30 RF: 6 rosuvastatin 20 mg tablet 20 mg PO DAILY Qty: 30 RF: 12 duloxetine 60 mg capsule,delayed release(DR/EC) 60 mg PO BID Qty: 60 RF: 1 propranolol 10 mg tablet 10 mg PO TID PRN (Reason: anxiety) Qty: 60 RF: 2 Referrals: Edie Dela Cruz MD [Primary Care Provider] - <Theodore Robert DO - Last Filed: 08/20/20 03:26> [facility] ED Attending Laurenature Attestation: I was immediately available in the department for consultation. This documentation has been reviewed and I agree with assessment and plan. Supervised by Theodore Robert DO
[2020-08-11] MEDS: BACITRACIN OINT 0.9 GM PCKT 1 APPLIC TOP (16:56)
[2020-08-11] MEDS: LIDO 1%/SOD BICARB 8.4% (10ML) 10 ML SYRINGE INJ (16:57)
[2020-08-11] MEDS: TET,DIPH,PERTUSS(ACELL),VAC/PF 0.5 ML SYRINGE IM (16:57)
[2020-08-11 17:35] VITALS: BP 137/74; PULSE 99; RESP 16; O2SAT 98
--- NOTE | 2020-08-11 17:59 | PC.NURSE ---
pt had 3 different open areas. placed steri strips on pt thumb, bandaid to outer of 5th finger, and non stick telfa to index finger. place 2x5 orthoglass to under palm and secured to keep from bending hand.
== END 2020-08-11 17:56 | disposition home or self-care (01) ==
PROVIDERS: Emergency Provider Nurse Practitioner; PCP Family Medicine
DX: S61.411A Laceration without foreign body of right hand, initial encounter (principal); W26.9XXA Contact with unspecified sharp object(s), initial encounter; E10.9 Type 1 diabetes mellitus without complications; Z23 Encounter for immunization
CPT/HCPCS: 12004; 90471; 99283; 99284; 90715

== ENCOUNTER → 2020-10-20 08:08 | Outpatient (CLI) | payer OTHER, SELFPAY ==
[2020-10-20] MEDS: COVID-19 VACC(MODERNA-1)/PF 100 MCG/0.5 ML VIAL IM (08:11)
== END ==
PROVIDERS: PCP Family Medicine; Visit Provider Internal Medicine
DX: Z23 Encounter for immunization (principal)
CPT/HCPCS: 0011A; 91301

== ENCOUNTER → 2020-11-18 10:47 | Outpatient (CLI) | payer OTHER, SELFPAY ==
[2020-11-18] MEDS: COVID-19 VACC #2, MRNA(MOD) 100 MCG/0.5 ML VIAL IM (10:51)
== END ==
PROVIDERS: PCP Family Medicine; Visit Provider Internal Medicine
DX: Z23 Encounter for immunization (principal)
CPT/HCPCS: 0012A; 91301

== ENCOUNTER → 2021-04-21 11:48 | Outpatient (CLI) | payer OTHER, SELFPAY ==
[2021-04-21 14:37] LABS: Add Manual Diff / Slide Review NO; Basophils Absolute Auto 100 /uL (0-100); Basophils Percent Auto 0.9 % (0-2); Eosinophils Absolute Auto 300 /uL (0-450); Eosinophils Percent Auto 3.3 % (2-4); Hematocrit 37.1 % (36-46); Hemoglobin 12.1 g/dL (12.0-16.0); Lymphocytes Absolute Auto 1500 /uL (1100-4500); Lymphocytes Percent Auto 18.1 % (25-40); Mean Corpuscular HGB Conc 32.5 % (30-36); Mean Corpuscular Hemoglobin 27.2 PG (26-34); Mean Corpuscular Volume 83.8 fL (80-100); Monocytes Absolute Auto 800 /uL (0-900); Monocytes Percent Auto 9.9 % (3-14); Neutrophils Absolute Auto 5700 /uL (1500-7000); Neutrophils Percent Auto 67.8 % (50-75); Platelet Count 364 X10^3/uL (150-400); Red Blood Cell Count 4.43 X10^6/uL (4.0-5.2); Red Cell Distribution Width 15.7 % (11.6-14.8); White Blood Cell Count 8.4 X10^3/uL (4.5-11.0)
[2021-04-21 19:19] LABS: Hemoglobin A1C% w Est Avg Glu 9.5 % (4.0-6.0)
== END ==
PROVIDERS: PCP Family Medicine; Referring Provider Internal Medicine Endocrinology, Diabetes & Metabolism; Visit Provider Internal Medicine Endocrinology, Diabetes & Metabolism
DX: E10.42 Type 1 diabetes mellitus with diabetic polyneuropathy (principal)
CPT/HCPCS: 36415; 83036; 85025

== ENCOUNTER 2021-07-04 15:55 | Emergency (ER) | payer OTHER, SELFPAY ==
[2021-07-04 15:58] VITALS: BP 163/95; PULSE 88; RESP 18; TEMP 36.4; O2SAT 100
[2021-07-04] MEDS: SODIUM CHLORIDE 0.9% 1,000 ML 1000 ML IV (16:13)
[2021-07-04 16:20] LABS: Add Manual Diff / Slide Review NO; Basophils Absolute Auto 100 /uL (0-100); Basophils Percent Auto 0.8 % (0-2); Eosinophils Absolute Auto 300 /uL (0-450); Eosinophils Percent Auto 3.7 % (2-4); Hematocrit 37.2 % (36-46); Hemoglobin 12.1 g/dL (12.0-16.0); Lymphocytes Absolute Auto 1500 /uL (1100-4500); Lymphocytes Percent Auto 17.4 % (25-40); Mean Corpuscular HGB Conc 32.4 % (30-36); Mean Corpuscular Hemoglobin 27.1 PG (26-34); Mean Corpuscular Volume 83.6 fL (80-100); Monocytes Absolute Auto 900 /uL (0-900); Monocytes Percent Auto 10.2 % (3-14); Neutrophils Absolute Auto 5900 /uL (1500-7000); Neutrophils Percent Auto 67.9 % (50-75); Platelet Count 345 X10^3/uL (150-400); Red Blood Cell Count 4.46 X10^6/uL (4.0-5.2); White Blood Cell Count 8.7 X10^3/uL (4.5-11.0)
--- NOTE | 2021-07-04 16:27 | ED.NAVMDI ---
HPI - Nausea/Vomiting/Diarrhea General Chief complaint: Nausea/Vomiting/Diarrhea Stated complaint: TYPE 1 DIBETIC DEHYDRATION Time Seen by Provider: 07/04/21 16:04 Source: patient Mode of arrival: Ambulatory History of Present Illness HPI Narrative: Patient is a 50-year-old female. Is a type 1 diabetic. Does have an insulin pump in place. She states that approximately 1 week ago her insulin pump became clogged. She then had a period of time where she was not receiving her insulin and her blood sugar elevated into the 600 range. She then noticed that she was having the issues. Her insulin pump now works properly. Her blood sugars have been below 200 but she states that she has had quite a bit of nausea and she states that whenever she eats a very small amount her blood sugar spikes. She has had DKA in the past. She states she just overall feels poorly and is having nausea currently. In the past fluids have helped her symptoms when she has felt like this. Related Data Previous Rx's Medication Instructions Recorded ondansetron 4 mg disintegrating 4 mg PO Q8H PRN #20 tab 05/14/19 tablet insulin aspart U-100 100 unit/mL 100 unit CONTINUOUS SUBCUTANEOUS 05/10/20 subcutaneous solution (Novolog INFUSION DAILY #30 ml U-100 Insulin aspart) rosuvastatin 20 mg tablet 20 mg PO DAILY #30 tab 06/17/20 insulin aspart U-100 100 unit/mL See Rx Instructions .ROUTE 02/18/21 subcutaneous solution (Novolog .COMPLEX #30 ml U-100 Insulin aspart) blood sugar diagnostic (Contour See Rx Instructions .ROUTE 03/16/21 Next Test Strips) .COMPLEX #100 ea escitalopram oxalate 10 mg tablet See Rx Instructions .ROUTE 03/24/21 .COMPLEX #90 tab metformin 500 mg tablet See Rx Instructions .ROUTE 04/15/21 .COMPLEX #180 tab duloxetine 60 mg capsule,delayed See Rx Instructions .ROUTE 05/17/21 release .COMPLEX #60 cap Allergies Allergy/AdvReac Type Severity Reaction Status Date / Time amoxicillin Allergy Mild HIVES Verified 11/24/20 11:33 Sulfa (Sulfonamide Allergy Mild HIVES/RASH Verified 11/24/20 11:33 Antibiotics) Review of Systems Constitutional Constitutional: Reports headache(s) ENT Ears, Nose, Mouth, and Throat: Reports headache(s) Cardiovascular Cardiovascular: Reports system reviewed and no additional complaints, except as documented Respiratory Respiratory: Reports system reviewed and no additional complaints, except as documented Gastrointestinal Gastrointestinal: Reports as per HPI Genitourinary Genitourinary: Reports system reviewed and no additional complaints, except as documented Musculoskeletal Musculoskeletal: Reports system reviewed and no additional complaints, except as documented Integumentary/Breasts Skin/Breast: Reports system reviewed and no additional complaints, except as documented Neurologic Neurologic: Reports headache(s) Hematologic/Lymphatic On Anticoagulants: No Allergic/Immunologic Allergic/Immunologic: Reports system reviewed and no additional complaints, except as documented Patient History Medical History (Updated 07/04/21 @ 17:43 by Man Shah DO) Gastroparesis Iron deficiency anemia (2014) Peripheral neuropathy Pure hypercholesterolemia Type 1 diabetes mellitus Social History marital status: number of children: 3 household members: family lives independently: Yes caregiver/support person: No housing: house education level: college occupational status: employed current occupational exposures/hazards: No Smoking Status: Former smoker alcohol intake: current substance use type: marijuana Smoking Status: Former smoker alcohol intake frequency: 0-2 drinks per day Substance Use Type: does not use Exam Initial Vital Signs Initial Vital Signs: Vital Signs Temperature 97.6 F 07/04/21 15:58 Pulse Rate 88 07/04/21 15:58 Respiratory Rate 18 07/04/21 15:58 Blood Pressure 163/95 H 07/04/21 15:58 Pulse Oximetry 100 07/04/21 15:58 Const General: cooperative, healthy appearing and comfortable HENMT Head: normal to inspection and normocephalic Resp Effort & Inspection: normal respiratory effort Auscultation: clear to auscultation bilaterally Cardio Rate: regular rate Rhythm: regular rhythm GI Inspection: normal to inspection Neuro General: patient alert, patient awake and moves all extremities Extrem General: No edema Psych Appearance: grossly normal and well kempt Course Orders Ordered: ED Orders 07/04/21 16:14 Complete Blood Count AUTO DIFF Stat Comprehensive Metabolic Panel Stat Lipase Stat Discontinued Medications Sodium Chloride (Normal Saline 0.9%) 1,000 mls @ 1,000 mls/hr IV BOLUS ONE Stop: 07/04/21 17:03 Last Infusion: 07/04/21 17:24 Dose: 0 mls/hr Documented by: Admin: 07/04/21 16:13 Dose: 1,000 mls/hr Documented by: SHAE Ondansetron HCl (Ondansetron 4 Mg/2 Ml Inj) 4 mg IV NOW ONE Stop: 07/04/21 16:28 Last Admin: 07/04/21 16:39 Dose: 4 mg Documented by: SHAE Vital Signs Vital signs: Vital Signs - 8 hr 07/04/21 15:58 07/04/21 17:33 Temperature 97.6 F Pulse Rate 88 82 Respiratory Rate 18 18 Blood Pressure 163/95 H 125/73 Pulse Oximetry 100 99 MDM - Nausea/Vomiting/Diarrhea Lab Data Attestation: I reviewed the patient's lab results. Result diagrams: 07/04/21 16:14 07/04/21 16:14 Labs: Lab Results 07/04/21 07/04/21 Range/Units 16:14 16:14 WBC 8.7 (4.5-11.0) X10^3/uL RBC 4.46 (4.0-5.2) X10^6/uL Hgb 12.1 (12.0-16.0) g/dL Hct 37.2 (36-46) % MCV 83.6 (80-100) fL MCH 27.1 (26-34) PG MCHC 32.4 (30-36) % RDW 15.0 H (11.6-14.8) % Plt Count 345 (150-400) X10^3/uL Neut % (Auto) 67.9 (50-75) % Lymph % (Auto) 17.4 L (25-40) % [place] % (Auto) 10.2 (3-14) % Eos % (Auto) 3.7 (2-4) % Baso % (Auto) 0.8 (0-2) % Neut # (Auto) 5900 (4890-4982) /uL Lymph # (Auto) 1500 (2327-3177) /uL [place] # (Auto) 900 (0-900) /uL Eos # (Auto) 300 (0-450) /uL Baso # (Auto) 100 (0-100) /uL Sodium 131 L (137-145) mmol/L Potassium 4.1 (3.4-5.1) mmol/L Chloride 97 L (98-107) mmol/L Carbon Dioxide 30 (22-32) mmol/L BUN 9 (7-17) mg/dL Creatinine 0.57 (0.52-1.04) mg/dL Estimated GFR > 60.0 (>60) mL/min BUN/Creatinine Ratio 15.8 (6-22) Glucose 170 H (70-100) mg/dL Calcium 9.2 (8.4-10.2) mg/dL Total Bilirubin 0.2 (0.2-1.3) mg/dL AST 37 H (14-36) IU/L ALT 29 (<35) IU/L Alkaline Phosphatase 69 (38-126) U/L Total Protein 8.0 (6.3-8.2) g/dL Albumin 4.6 (3.5-5.0) g/dL Globulin 3.4 (1.7-4.1) g/dL Albumin/Globulin Ratio 1.4 (1.0-2.8) Lipase 56 (23-300) U/L MDM Narrative Medical decision making narrative: Patient was hyperglycemic but I have low suspicion of DKA based on her CO2 on the chemistries. She was given nausea medication. Was tolerating oral intake. [place] better after fluids. Feel that we can hold on further workup for now. Will discharge home with return precautions. She expressed understanding and agreement. Discharge Plan Departure Patient Disposition: Home Clinical Impression: Hyperglycemia, Nausea Instructions: DI for Nausea -- Adult Activity Restrictions/Additional Instructions: Be sure to continue to take all of your medications as directed. Be sure to increase your fluid intake. Contact your primary doctor for a follow-up. Return to the emergency department for any new or worsening symptoms Prescriptions: No Action ondansetron 4 mg tablet,disintegrating 4 mg PO Q8H PRN (Reason: nausea and vomiting) Qty: 20 RF: 0 Novolog U-100 Insulin aspart 100 unit/mL solution 100 unit Continuous Subcutaneous Infusion DAILY Qty: 30 RF: 6 rosuvastatin 20 mg tablet 20 mg PO DAILY Qty: 30 RF: 12 insulin aspart U-100 [Novolog U-100 Insulin aspart] 100 unit/mL solution See Rx Instructions .ROUTE .COMPLEX Qty: 30 RF: 2 Contour Next Test Strips Strip See Rx Instructions .ROUTE .COMPLEX Qty: 100 RF: 1 escitalopram oxalate 10 mg tablet See Rx Instructions .ROUTE .COMPLEX Qty: 90 RF: 0 metformin 500 mg tablet See Rx Instructions .ROUTE .COMPLEX Qty: 180 RF: 0 duloxetine 60 mg capsule,delayed release(DR/EC) See Rx Instructions .ROUTE .COMPLEX Qty: 60 RF: 2 Referrals: Edie Dela Cruz MD [Primary Care Provider] -
[2021-07-04 16:33] LABS: Alanine Aminotransferase 29 IU/L (<35); Albumin 4.6 g/dL (3.5-5.0); Albumin Globulin Ratio 1.4 (1.0-2.8); Alkaline Phosphatase 69 U/L (38-126); Aspartate Aminotransferase 37 IU/L (14-36); BUN Creatinine Ratio 15.8 (6-22); Bilirubin Total 0.2 mg/dL (0.2-1.3); Blood Urea Nitrogen 9 mg/dL (7-17); Calcium 9.2 mg/dL (8.4-10.2); Carbon Dioxide 30 mmol/L (22-32); Chloride 97 mmol/L (98-107); Estimated Glomerular Filt Rate > 60.0 mL/min (>60); Globulin 3.4 g/dL (1.7-4.1); Glucose 170 mg/dL (70-100); HEMOLYSIS < 15 (0-50); Lipase 56 U/L (23-300); Potassium 4.1 mmol/L (3.4-5.1); Sodium 131 mmol/L (137-145)
[2021-07-04] MEDS: ONDANSETRON 4 MG/2 ML INJ IV (16:39)
[2021-07-04 17:33] VITALS: BP 125/73; PULSE 82; RESP 18; O2SAT 99
== END 2021-07-04 17:53 | disposition home or self-care (01) ==
PROVIDERS: Emergency Provider Emergency Medicine; PCP Family Medicine
DX: E10.65 Type 1 diabetes mellitus with hyperglycemia (principal); Z79.4 Long term (current) use of insulin; R11.0 Nausea; R51.9 Headache, unspecified
CPT/HCPCS: 36415; 80053; 83690; 85025; 96361; 96374; 99284; J2405

== ENCOUNTER → 2021-07-21 | Outpatient (CLI) | payer OTHER, SELFPAY | PROVIDERS: PCP Family Medicine; Referring Provider Internal Medicine; Visit Provider Internal Medicine | DX: Z23 Encounter for immunization (principal) | CPT/HCPCS: 90471; 90686 ==

== ENCOUNTER → 2021-08-19 09:47 | Outpatient (CLI) | payer OTHER, SELFPAY ==
[2021-08-19] MEDS: COVID-19 VACC #3, MRNA(MOD) 50 MCG/0.25 ML VIAL IM (09:56)
== END ==
PROVIDERS: PCP Family Medicine; Visit Provider Internal Medicine
DX: Z23 Encounter for immunization (principal)
CPT/HCPCS: 0013A; 91301

== ENCOUNTER → 2021-11-16 09:39 | Outpatient (CLI) | payer OTHER, SELFPAY ==
[2021-11-16 10:14] LABS: Add Manual Diff / Slide Review NO; Basophils Absolute Auto 100 /uL (0-100); Basophils Percent Auto 0.6 % (0-2); Eosinophils Absolute Auto 200 /uL (0-450); Eosinophils Percent Auto 2.6 % (2-4); Hematocrit 34.5 % (36-46); Hemoglobin 11.5 g/dL (12.0-16.0); Lymphocytes Absolute Auto 1100 /uL (1100-4500); Lymphocytes Percent Auto 12.8 % (25-40); Mean Corpuscular HGB Conc 33.2 % (30-36); Mean Corpuscular Hemoglobin 26.9 PG (26-34); Monocytes Absolute Auto 700 /uL (0-900); Monocytes Percent Auto 8.6 % (3-14); Neutrophils Absolute Auto 6300 /uL (1500-7000); Neutrophils Percent Auto 75.4 % (50-75); Platelet Count 399 X10^3/uL (150-400); Red Blood Cell Count 4.26 X10^6/uL (4.0-5.2); Red Cell Distribution Width 15.7 % (11.6-14.8); White Blood Cell Count 8.3 X10^3/uL (4.5-11.0)
[2021-11-16 10:22] LABS: Hemoglobin A1C% w Est Avg Glu 10.9 % (4.0-6.0)
[2021-11-16 11:58] LABS: Alanine Aminotransferase 27 IU/L (<35); Albumin 4.3 g/dL (3.5-5.0); Albumin Globulin Ratio 1.3 (1.0-2.8); Alkaline Phosphatase 61 U/L (38-126); Aspartate Aminotransferase 42 IU/L (14-36); BUN Creatinine Ratio 16.9 (6-22); Bilirubin Total 0.3 mg/dL (0.2-1.3); Blood Urea Nitrogen 10 mg/dL (7-17); Calcium 9.9 mg/dL (8.4-10.2); Carbon Dioxide 29 mmol/L (22-32); Chloride 95 mmol/L (98-107); Cholesterol 195 mg/dL (140-199); Estimated Glomerular Filt Rate > 60.0 mL/min (>60); Globulin 3.3 g/dL (1.7-4.1); Glucose 216 mg/dL (70-100); HDL Cholesterol 103 mg/dL (40-60); HEMOLYSIS < 15 (0-50); LDL Cholesterol Calculated 78 mg/dL (<100); Sodium 130 mmol/L (137-145); Total Protein 7.6 g/dL (6.3-8.2); Triglycerides 68 mg/dL (35-150)
[2021-11-16 16:59] LABS: Creatinine Urine Random 126.1 mg/dL
[2021-11-16 17:08] LABS: Microalbumi Creatinin Ratio Ur 43.6 ug/mg CR (<30); Microalbumin Urine Random 5.5 mg/dL (0-1.6)
== END ==
PROVIDERS: PCP Family Medicine; Referring Provider Family Medicine; Visit Provider Family Medicine
DX: E10.42 Type 1 diabetes mellitus with diabetic polyneuropathy (principal); E78.00 Pure hypercholesterolemia, unspecified; Z86.2 Personal history of diseases of the blood and blood-forming organs and certain disorders involving the immune mechanism
CPT/HCPCS: 36415; 80053; 80061; 82043; 82570; 83036; 85025

== ENCOUNTER 2021-11-17 22:20 | Emergency (ER) | payer OTHER, SELFPAY ==
[2021-11-17 22:32] VITALS: BP 220/99; PULSE 94; RESP 16; TEMP 35.9; O2SAT 98; BMI 31.3
--- NOTE | 2021-11-17 22:41 | ED_ITS ---
HPI - Dental/Oral General Chief complaint: Dental/Oral Stated complaint: N/V Time Seen by Provider: 11/17/21 22:37 History of Present Illness HPI Narrative: Patient is a 51-year-old female with history of type 1 diabetes presenting today with nausea and vomiting. She actually had a dental procedure she had a partial bridge she had multiple teeth pulled today she only received Novocain since then she has been vomiting. She has been unable to keep anything down. She denies any abdominal pain. She says her glucose has been in the 300s. This is not atypical for her up since beginning able of her dental issues her sugar has been elevated. She denies any fever but says that she does not get fever she only gets high glucose. She is feeling significantly better after EMS gave her Zofran. Related Data Previous Rx's Medication Instructions Recorded ondansetron 4 mg disintegrating 4 mg PO Q8H PRN #20 tab 05/14/19 tablet blood sugar diagnostic (Contour See Rx Instructions .ROUTE 03/16/21 Next Test Strips) .COMPLEX #100 ea escitalopram oxalate 10 mg tablet See Rx Instructions .ROUTE 03/24/21 .COMPLEX #90 tab propranolol 10 mg tablet 10 mg PO DAILY #30 tab 08/12/21 duloxetine 60 mg capsule,delayed See Rx Instructions .ROUTE 08/22/21 release .COMPLEX #60 cap insulin aspart U-100 100 unit/mL See Rx Instructions .ROUTE 09/06/21 subcutaneous solution (Novolog .COMPLEX #30 ml U-100 Insulin aspart) metformin 500 mg tablet See Rx Instructions .ROUTE 10/25/21 .COMPLEX #180 tab ondansetron 4 mg disintegrating 4 mg PO Q8H PRN #10 tab 11/17/21 tablet Allergies Allergy/AdvReac Type Severity Reaction Status Date / Time amoxicillin Allergy Mild HIVES Verified 11/24/20 11:33 Sulfa (Sulfonamide Allergy Mild HIVES/RASH Verified 11/24/20 11:33 Antibiotics) rosuvastatin AdvReac Intermediate polymyalgia Verified 11/10/21 16:44 s Review of Systems Review of Systems Narrative: GENERAL: Denies chills, fatigue, malaise, fever, sweats, travel HEENT: See HPI RESPIRATORY: Denies dyspnea, cough, wheezing, hemoptysis, sputum. CARDIOVASCULAR: Denies chest pain, palpitations, orthopnea, edema GASTROINTESTINAL: See HPI : Denies dysuria, frequency, incontinence, hematuria, urinary retention, flank pain. MUSCULOSKELETAL: Denies weakness, joint pain, or bony pain SKIN: No rash, no erythema, no pruritus NEUROLOGIC: Denies weakness, dizziness, headache, numbness, change in speech, confusion PSYCHIATRIC: No concerning psychosocial issues. 12 point review of systems is negative except for those stated above and HPI Patient History Medical History (Updated 11/17/21 @ 23:46 by Giselle Marino DO) Gastroparesis Iron deficiency anemia (2015) Peripheral neuropathy Pure hypercholesterolemia Type 1 diabetes mellitus Social History marital status: number of children: 3 household members: family lives independently: Yes caregiver/support person: No housing: house education level: college occupational status: employed current occupational exposures/hazards: No Smoking Status: Former smoker alcohol intake: current substance use type: marijuana Smoking Status: Former smoker alcohol intake frequency: 0-2 drinks per day Substance Use Type: does not use Exam Initial Vital Signs Initial Vital Signs: Vital Signs Temperature 96.7 F L 11/17/21 22:32 Pulse Rate 94 H 11/17/21 22:32 Respiratory Rate 16 11/17/21 22:32 Blood Pressure 220/99 H 11/17/21 22:32 Pulse Oximetry 98 11/17/21 22:32 GENERAL: 51-year-old female and in no acute distress. HEENT: Head atraumatic,EOMI, pupils reactive, face symmetric, moist mucous me mbranes , bridge in place, no significant swelling CARDIOVASCULAR: Regular rate and rhythm without murmurs, rubs or gallops. RESPIRATORY: Breath sounds equal bilaterally, no wheezes rales or rhonchi. ABDOMEN: Soft, nontender. Normoactive bowel sounds all 4 quadrants. No guarding or rebound. EXTREMITIES: Normal range of motion, no clubbing or edema. Neurovascularly intact NEUROLOGICAL: Alert and oriented x4.Normal gait and speech. SKIN: Warm, dry, no laceration, no petechiae, no rashes or lesions. Course Orders Ordered: ED Orders 11/17/21 22:25 Complete Blood Count AUTO DIFF Stat Comprehensive Metabolic Panel Stat Lipase Stat Discontinued Medications Sodium Chloride (Normal Saline 0.9%) 1,000 mls @ 1,000 mls/hr IV BOLUS ONE Stop: 11/17/21 23:36 Last Infusion: 11/18/21 00:02 Dose: 0 mls/hr Documented by: Admin: 11/17/21 22:58 Dose: 1,000 mls/hr Documented by: REECE Ondansetron HCl (Ondansetron 4 Mg/2 Ml Inj) 4 mg IV NOW ONE Stop: 11/17/21 22:38 Last Admin: 11/17/21 22:58 Dose: 4 mg Documented by: REECE Ondansetron HCl (Ondansetron 4 Mg Odt Prepack) 1 bottle MISC SEEINSTR ONE Stop: 11/17/21 23:48 Last Admin: 11/18/21 00:01 Dose: 1 bottle Documented by: ANJUM Vital Signs Vital signs: Vital Signs - 8 hr 11/17/21 22:32 11/17/21 23:00 Temperature 96.7 F L Pulse Rate 94 H 84 Respiratory Rate 16 18 Blood Pressure 220/99 H 166/82 H Pulse Oximetry 98 99 MDM - Dental/Oral Lab Data Result diagrams: 11/17/21 22:25 11/17/21 22:25 Labs: Lab Results 11/17/21 11/17/21 11/17/21 Range/Units 22:25 22:25 22:25 WBC 8.6 (4.5-11.0) X10^3/uL RBC 4.68 (4.0-5.2) X10^6/uL Hgb 12.5 (12.0-16.0) g/dL Hct 38.0 (36-46) % MCV 81.1 (80-100) fL MCH 26.8 (26-34) PG MCHC 33.0 (30-36) % RDW 16.0 H (11.6-14.8) % Plt Count 398 (150-400) X10^3/uL Neut % (Auto) 66.4 (50-75) % Lymph % (Auto) 19.0 L (25-40) % Meriwether % (Auto) 11.0 (3-14) % Eos % (Auto) 2.4 (2-4) % Baso % (Auto) 1.2 (0-2) % Neut # (Auto) 5700 (0378-1228) /uL Lymph # (Auto) 1600 (4868-2805) /uL Meriwether # (Auto) 1000 H (0-900) /uL Eos # (Auto) 200 (0-450) /uL Baso # (Auto) 100 (0-100) /uL Sodium 128 L (137-145) mmol/L Potassium 4.0 (3.4-5.1) mmol/L Chloride 93 L (98-107) mmol/L Carbon Dioxide 27 (22-32) mmol/L BUN 8 (7-17) mg/dL Creatinine 0.54 (0.52-1.04) mg/dL Estimated GFR > 60.0 (>60) mL/min BUN/Creatinine Ratio 14.8 (6-22) Glucose 283 H (70-100) mg/dL Calcium 9.6 (8.4-10.2) mg/dL Total Bilirubin 0.5 (0.2-1.3) mg/dL AST 53 H (14-36) IU/L ALT 29 (<35) IU/L Alkaline Phosphatase 62 (38-126) U/L Total Protein 8.5 H (6.3-8.2) g/dL Albumin 4.7 (3.5-5.0) g/dL Globulin 3.8 (1.7-4.1) g/dL Albumin/Globulin Ratio 1.2 (1.0-2.8) Lipase 46 (23-300) U/L MDM Narrative Medical decision making narrative: anion gap 8 Patient has no sign of DKA. She says she is fairly sensitive to medication she thinks she had too much numbing medication at the dentist. She has not vomited here in the ED. Overall feeling significantly better blood pressure has improved. Discharge Plan Departure Patient Disposition: Home Clinical Impression: Vomiting, DM gastroparesis Instructions: DI for Vomiting -- Adult Activity Restrictions/Additional Instructions: *You have been diagnosed with vomiting *What to do: At this time blood work overall is reassuring. I hope that you feel better *Continue to take medications as directed Zofran 4 mg every 8 hours if needed for vomiting--> SENT TO [facility] *Follow up with your primary care provider in 2-3 days or call [phone] *Return to ER if you should have persistent vomiting, increasing abdominal pain, fever or any new, worsening or concerning symptoms Prescriptions: New ondansetron 4 mg tablet,disintegrating 4 mg PO Q8H PRN (Reason: nausea and vomiting) Qty: 10 0RF No Action ondansetron 4 mg tablet,disintegrating 4 mg PO Q8H PRN (Reason: nausea and vomiting) Qty: 20 0RF Contour Next Test Strips Strip See Rx Instructions .ROUTE .COMPLEX Qty: 100 1RF Dose Instruction: USE TO CHECK BLOOD GLUCOSE 6 TIMES A DAY DIRECTED Rx Instructions: USE TO CHECK BLOOD GLUCOSE 6 TIMES A DAY DIRECTED escitalopram oxalate 10 mg tablet See Rx Instructions .ROUTE .COMPLEX Qty: 90 0RF Dose Instruction: TAKE ONE TABLET BY MOUTH ONE TIME DAILY Rx Instructions: TAKE ONE TABLET BY MOUTH ONE TIME DAILY propranolol 10 mg tablet 10 mg PO DAILY Qty: 30 3RF duloxetine 60 mg capsule,delayed release(DR/EC) See Rx Instructions .ROUTE .COMPLEX Qty: 60 2RF Dose Instruction: TAKE ONE CAPSULE BY MOUTH TWICE DAILY Rx Instructions: TAKE ONE CAPSULE BY MOUTH TWICE DAILY insulin aspart U-100 [Novolog U-100 Insulin aspart] 100 unit/mL solution See Rx Instructions .ROUTE .COMPLEX Qty: 30 2RF Dose Instruction: INJECT 100 UNITS CONTINUOUS SUBCUTANEOUS INFUSION DAILY Rx Instructions: INJECT 100 UNITS CONTINUOUS SUBCUTANEOUS INFUSION DAILY; call to schedule appt for October metformin 500 mg tablet See Rx Instructions .ROUTE .COMPLEX Qty: 180 0RF Dose Instruction: TAKE 1 TABLET BY MOUTH TWICE DAILY Rx Instructions: TAKE 1 TABLET BY MOUTH TWICE DAILY Referrals: Alfonso Her MD [Non-Staff] - Edie Dela Cruz MD [Primary Care Provider] -
[2021-11-17 22:45] LABS: Add Manual Diff / Slide Review NO; Basophils Absolute Auto 100 /uL (0-100); Basophils Percent Auto 1.2 % (0-2); Eosinophils Absolute Auto 200 /uL (0-450); Eosinophils Percent Auto 2.4 % (2-4); Hemoglobin 12.5 g/dL (12.0-16.0); Lymphocytes Absolute Auto 1600 /uL (1100-4500); Mean Corpuscular Hemoglobin 26.8 PG (26-34); Mean Corpuscular Volume 81.1 fL (80-100); Monocytes Absolute Auto 1000 /uL (0-900); Neutrophils Absolute Auto 5700 /uL (1500-7000); Neutrophils Percent Auto 66.4 % (50-75); Platelet Count 398 X10^3/uL (150-400); Red Blood Cell Count 4.68 X10^6/uL (4.0-5.2); White Blood Cell Count 8.6 X10^3/uL (4.5-11.0)
[2021-11-17 22:49] LABS: Alanine Aminotransferase 29 IU/L (<35); Albumin 4.7 g/dL (3.5-5.0); Albumin Globulin Ratio 1.2 (1.0-2.8); Alkaline Phosphatase 62 U/L (38-126); Aspartate Aminotransferase 53 IU/L (14-36); BUN Creatinine Ratio 14.8 (6-22); Bilirubin Total 0.5 mg/dL (0.2-1.3); Blood Urea Nitrogen 8 mg/dL (7-17); Calcium 9.6 mg/dL (8.4-10.2); Carbon Dioxide 27 mmol/L (22-32); Chloride 93 mmol/L (98-107); Estimated Glomerular Filt Rate > 60.0 mL/min (>60); Globulin 3.8 g/dL (1.7-4.1); Glucose 283 mg/dL (70-100); HEMOLYSIS 46 (0-50); Sodium 128 mmol/L (137-145); Total Protein 8.5 g/dL (6.3-8.2)
[2021-11-17 22:57] LABS: Lipase 46 U/L (23-300)
[2021-11-17] MEDS: SODIUM CHLORIDE 0.9% 1,000 ML 1000 ML IV (22:58)
[2021-11-17] MEDS: ONDANSETRON 4 MG/2 ML INJ IV (22:58)
[2021-11-17 23:00] VITALS: BP 166/82; PULSE 84; RESP 18; O2SAT 99
--- NOTE | 2021-11-17 23:04 | PC.NURSE ---
Pt reports improvement in nausea.
[2021-11-18] MEDS: ONDANSETRON 4 MG ODT PREPACK 1 BOTTLE MISC (00:01)
== END 2021-11-18 | disposition home or self-care (01) ==
PROVIDERS: Emergency Provider Emergency Medicine; PCP Family Medicine
DX: E10.43 Type 1 diabetes mellitus with diabetic autonomic (poly)neuropathy (principal); K31.84 Gastroparesis; Z79.4 Long term (current) use of insulin; Z79.84 Long term (current) use of oral hypoglycemic drugs; Z87.891 Personal history of nicotine dependence
CPT/HCPCS: 80053; 83690; 85025; 96361; 96374; 99283; 99284; J2405

== ENCOUNTER → 2022-05-15 11:05 | Outpatient (CLI) | payer OTHER, SELFPAY ==
[2022-05-15 12:02] LABS: Add Manual Diff / Slide Review NO; Basophils Absolute Auto 0 /uL (0-100); Basophils Percent Auto 0.5 % (0-2); Eosinophils Absolute Auto 200 /uL (0-450); Hematocrit 33.5 % (36-46); Lymphocytes Absolute Auto 1000 /uL (1100-4500); Lymphocytes Percent Auto 12.5 % (25-40); Mean Corpuscular HGB Conc 32.9 % (30-36); Monocytes Absolute Auto 700 /uL (0-900); Monocytes Percent Auto 8.9 % (3-14); Neutrophils Absolute Auto 6300 /uL (1500-7000); Neutrophils Percent Auto 76.1 % (50-75); Platelet Count 373 X10^3/uL (150-400); Red Blood Cell Count 4.41 X10^6/uL (4.0-5.2); Red Cell Distribution Width 16.6 % (11.6-14.8); White Blood Cell Count 8.2 X10^3/uL (4.5-11.0)
[2022-05-15 12:56] LABS: Alanine Aminotransferase 18 IU/L (<35); Albumin Globulin Ratio 1.2 (1.0-2.8); Alkaline Phosphatase 82 U/L (38-126); Aspartate Aminotransferase 32 IU/L (14-36); BUN Creatinine Ratio 11.3 (6-22); Bilirubin Total 0.3 mg/dL (0.2-1.3); Blood Urea Nitrogen 8 mg/dL (7-17); Calcium 8.7 mg/dL (8.4-10.2); Carbon Dioxide 25 mmol/L (22-32); Chloride 94 mmol/L (98-107); Estimated Glomerular Filt Rate > 60 mL/min (>60); Globulin 3.3 g/dL (1.7-4.1); Glucose 387 mg/dL (70-100); HEMOLYSIS < 15 (0-50); Potassium 5.3 mmol/L (3.4-5.1); Sodium 127 mmol/L (137-145); Total Protein 7.3 g/dL (6.3-8.2)
== END ==
PROVIDERS: PCP Family Medicine; Referring Provider Family Medicine; Visit Provider Family Medicine
DX: E10.42 Type 1 diabetes mellitus with diabetic polyneuropathy (principal)
CPT/HCPCS: 36415; 80053; 85025

== ENCOUNTER → 2022-05-22 08:57 | Outpatient (CLI) | payer OTHER, SELFPAY ==
[2022-05-22 09:49] LABS: Creatinine Urine Random 123.2 mg/dL; Microalbumi Creatinin Ratio Ur 24.3 ug/mg CR (<30)
[2022-05-22 10:13] LABS: HEMOLYSIS < 15 (0-50); Iron 32 ug/dL (37-170)
[2022-05-22 10:16] LABS: Cholesterol 197 mg/dL (140-199); HDL Cholesterol 67 mg/dL (40-60); LDL Cholesterol Calculated 114 mg/dL (<100); Triglycerides 80 mg/dL (35-150)
[2022-05-22 10:26] LABS: Percent Iron Saturation 7 % (15-50); Total Iron Binding Capacity 487 ug/dL (265-497); Transferrin 364 mg/dL (206-381)
[2022-05-22 10:50] LABS: Ferritin 8 ng/mL (11-264)
== END ==
PROVIDERS: PCP Family Medicine; Referring Provider Physician Assistant; Visit Provider Physician Assistant
DX: D50.9 Iron deficiency anemia, unspecified (principal); E10.65 Type 1 diabetes mellitus with hyperglycemia; R55 Syncope and collapse; R68.89 Other general symptoms and signs; E78.00 Pure hypercholesterolemia, unspecified
CPT/HCPCS: 36415; 80061; 82043; 82570; 82728; 83036; 83540; 83550; 84443

== ENCOUNTER → 2022-06-14 07:59 | Outpatient (CLI) | payer OTHER, SELFPAY ==
--- NOTE | 2022-06-14 08:00 | DI.ECHO.S_ITS ---
[place] +---------+ [facility] +---------+ : : [address] : : : : [id number] : : : : Phone: [phone] Echocardiogram Report + + :Name: MANUEL CARY Study Date: 06/14/2022 Height: 67 in : :[facility] ReadingLocation: Weight: 195 lb : : Gender: Female BSA: 2.0 m2 : :: 1970 Age: 51 yrs BP: 160/90 mmHg: :Reason For Study: Syncope : :Ordering Physician: CATHERINE, : :WAYNE Pascual Performed By: Braydon Mckeon : :Referring: WAYNE ALEXANDER : + + Interpretation Summary Normal sinus rhythm. Normal LV size, wall thickness, wall motion and LV systolic function. EF is 60-65%. Normal chamber sizes. No significant valvular abnormalities. Compared to prior study 03/01/2012 pleural effusions are no longer seen. Procedure: A two-dimensional transthoracic echocardiogram with color flow and Doppler was performed. The study quality was technically adequate. Comparison is made with the echocardiogram of 03/01/2012. The patient was in normal sinus rhythm during the exam. Left Ventricle: The left ventricle is normal in size and wall thickness. Left ventricular systolic function is normal. The ejection fraction is estimated to be 60-65%. There are no focal wall motion abnormalities. Diastolic parameters suggest probable normal left ventricular diastolic function and normal filling pressures. Right Ventricle: The right ventricle is normal in size and function. Atria: Both atria are normal in size. The interatrial septum grossly appears intact with no obvious evidence for an atrial septal defect. Mitral Valve: The mitral valve is normal in structure and function. There is no mitral regurgitation noted. Aortic Valve: The aortic valve is normal in structure and function. No aortic regurgitation is present. Tricuspid Valve: The tricuspid valve is normal in structure and function. No tricuspid regurgitation. Pulmonary artery pressures cannot be estimated because of the lack of a measurable TR jet velocity. Pulmonic Valve: The pulmonic valve is not well visualized. Great Vessels: The aortic root is normal size. The ascending aorta could not be visualized. The IVC is of normal diameter and collapses greater than 50% with a sniff. This suggests a low right atrial pressure of 3 mm Hg. Pericardium/ Pleura There is no pericardial effusion. MMode/2D Measurements & Calculations LVIDd: 4.5 cm LVOT diam: 1.8 cm LVIDs: 3.0 cm Ao root diam: 3.1 cm FS: 33.3 % IVSd: 0.90 cm LVPWd: 0.90 cm LV castillo. diameter/BSA (cm/m^2): 2.2 LV sys. diameter/BSA (cm/m^2): 1.5 LA dimension: 3.4 cm RA long axis: 5.0 cm LA A2 area: 17.5 cm2 LA A4 area: 15.4 cm2 LA length (vol): 5.5 cm LA vol: 41.7 ml LA vol index: 20.9 ml/m2 TAPSE_phl: 2.5 cm Doppler Measurements & Calculations Ao V2 max: 151.0 cm/sec LVOT Max Frank: 129.0 cm/sec Ao V2 mean: 111.0 cm/sec LV V1 max P.7 mmHg Ao max P.0 mmHg LV V1 VTI: 29.2 cm Ao mean P.0 mmHg BONNIE(I,D): 2.3 cm2 Ao V2 VTI: 31.7 cm BONNIE(V,D): 2.2 cm2 sev ratio: 0.92 BONNIE indexed to BSA (cm^2/m^2): 1.2 MV E max frank: 84.0 cm/sec SV(LVOT): 74.3 ml MV A max frank: 86.5 cm/sec MV E/A: 0.97 Med Peak E' Frank: 8.0 cm/sec E/E' med: 10.5 Lat Peak E' Frank: 11.9 cm/sec E/E' lat: 7.1 E/e' average: 8.8 MV dec time: 0.28 sec AV VR_phl: 0.85 MV P1/2t-pr_phl: 82.0 msec BONNIE(VTI)/BSA_phl: 1.2 Electronically signed by: Siri Elliott M.D. on Reading Physician:06/14/2022 07:45 PM
== END ==
PROVIDERS: PCP Family Medicine; Referring Provider Physician Assistant; Visit Provider Physician Assistant
DX: R55 Syncope and collapse (principal); E10.65 Type 1 diabetes mellitus with hyperglycemia; E78.00 Pure hypercholesterolemia, unspecified
CPT/HCPCS: 93306

== ENCOUNTER → 2022-06-26 07:53 | Outpatient (CLI) | payer OTHER, SELFPAY ==
[2022-06-26 09:07] LABS: COVID19 -Nasal RAPID Negative (Negative)
--- NOTE | 2022-06-26 17:58 | DI.NM.S_ITS ---
DATE OF SERVICE: 06/26/2022 PROCEDURE PERFORMED: Perfusion study. INDICATION: [____] RADIOPHARMACEUTICAL: 25.4 millicurie technetium-99m Myoview IV was injected at stress and 12.1 millicurie technetium-99m Myoview IV was injected at rest. CARDIAC STRESS: The patient underwent initially a stress test using a standard Wilber protocol. The patient walked on the treadmill for about 7 minutes and 45 seconds. However, after that she was not able to walk and felt leg fatigue. At that time, she achieved 75 percent of target heart rate. Hence, exercise stress test was discontinued. However, patient was able to achieve 7 METs of workload. Resting blood pressure was 144/90 and peak blood pressure 190/90 mmHg. As patient did not achieve target heart rate, the patient was given intravenous Lexiscan, as per protocol. Baseline rhythm was sinus. During exercise, as well as Lexiscan, there were no ischemic electrocardiographic changes. Occasional PVCs without any significant arrhythmias. No chest discomfort. PITO was positive 2 percent. RAW DATA: Significant breast shadow seen. GATED STUDY: Stress LV ejection fraction is 72 percent without any obvious wall motion abnormalities. Resting end-diastolic volume 90 mL. TID ratio 1.09, which is within normal limits. Lung/heart ratio 0.44, which is within normal limits. MYOCARDIAL PERFUSION SCAN: Resting supine images revealed large size, moderate to severely decreased perfusion of inferior wall, inferoapex, as well as basal inferoseptum. Stress supine images revealed a small size, mildly decreased perfusion of distal inferior wall, inferoapex and distal inferolateral wall. During stress prone images, there was significant improvement. Stress prone images did not reveal any significant ischemia or infarction pattern. CONCLUSION: I will call this study a normal myocardial perfusion study with evidence of tissue attenuation artifact, which got resolved during stress prone images, as stated above. The raw images revealed enlarged breast shadow. Gated study revealed normal myocardial function without any significant wall motion abnormalities. Diminished exercise tolerance. Overall low-risk myocardial perfusion study. Aleksandra Eduardo - DAVID/melissa/harjit doc#: [id number]/job#: [id number] dd: 06/26/2022 17:11:00 dt: 06/26/2022 17:43:00 DICTATING MD/COPIES TO: Eric Mann MD COPIES MNE: ACE;
== END ==
PROVIDERS: PCP Family Medicine; Referring Provider Physician Assistant; Visit Provider Physician Assistant
DX: R55 Syncope and collapse (principal); E10.65 Type 1 diabetes mellitus with hyperglycemia; E78.00 Pure hypercholesterolemia, unspecified; Z20.822 Contact with and (suspected) exposure to COVID-19
CPT/HCPCS: 78452; 87635; 93017; A9502; J2785

== ENCOUNTER → 2022-06-30 08:05 | Outpatient (CLI) | payer OTHER, SELFPAY ==
--- NOTE | 2022-06-30 | DI.MG.S_ITS ---
BILATERAL DIGITAL SCREENING MAMMOGRAM 3D/2D WITH CAD: 06/30/2022 CLINICAL: Routine screening. Family history of breast cancer. Comparison is made to exam dated: 09/14/2018 mammogram - [facility]. There are scattered areas of fibroglandular density in both breasts (category b / 25%-50% glandular tissue). Current study was also evaluated with a Computer Aided Detection (CAD) system. No significant masses, calcifications, or other findings are seen in either breast. There has been no significant interval change. IMPRESSION: NEGATIVE There is no mammographic evidence of malignancy. A 1 year screening mammogram is recommended. Based on the Tyrer Cuzick model (a risk assessment model) the patient's lifetime risk is 6.9% and her 10 year risk is 1.6%. According to the ACR, ACS, and NCCN guidelines, an annual breast MRI exam along with mammogram is recommended if the patient's lifetime risk is 20% or greater. This exam was interpreted at Station ID: [id number]. NOTE: For mammograms, a report in lay terms will be sent to the patient. Approximately 15% of breast malignancies will not be visualized mammographically. In the management of a palpable breast mass, a negative mammogram must not discourage biopsy of a clinically suspicious lesion. Electronically Signed By: Gee lombardi/evelyn:06/30/2022 08:30:14 letter sent: Normal Exam ACR BI-RADS Category 1: Negative [id number]
== END ==
PROVIDERS: PCP Family Medicine; Referring Provider Family Medicine; Visit Provider Family Medicine
DX: Z12.31 Encounter for screening mammogram for malignant neoplasm of breast (principal); Z80.3 Family history of malignant neoplasm of breast
CPT/HCPCS: 77063; 77067

== ENCOUNTER → 2022-08-21 09:38 | Outpatient (CLI) | payer OTHER, SELFPAY ==
[2022-08-21 10:26] LABS: Influenza A - CEPHEID Flu A NEGATIVE (NEGATIVE); Influenza B - CEPHEID Flu B NEGATIVE (NEGATIVE); Respiratory Syncytial Virus Negative (Negative)
[2022-08-21 10:28] LABS: COVID-19 CEPHEID 4-PLEX PCR Negative (Negative)
== END ==
PROVIDERS: PCP Family Medicine; Visit Provider Nurse Practitioner Family
DX: R05.9 Cough, unspecified (principal)
CPT/HCPCS: 0241U

== ENCOUNTER → 2022-10-10 12:04 | Outpatient (CLI) | payer OTHER, SELFPAY ==
[2022-10-10 13:08] LABS: Hemoglobin A1C% w Est Avg Glu 9.9 % (4.0-6.0)
[2022-10-10 13:13] LABS: HEMOLYSIS < 15 (0-50); Iron 30 ug/dL (37-170)
[2022-10-10 13:23] LABS: Percent Iron Saturation 7 % (15-50); Total Iron Binding Capacity 460 ug/dL (265-497); Transferrin 351 mg/dL (206-381)
[2022-10-10 13:48] LABS: Ferritin 6 ng/mL (11-264)
== END ==
PROVIDERS: PCP Family Medicine; Referring Provider Family Medicine; Visit Provider Family Medicine
DX: D50.9 Iron deficiency anemia, unspecified (principal); E10.65 Type 1 diabetes mellitus with hyperglycemia
CPT/HCPCS: 36415; 82728; 83036; 83540; 83550

== ENCOUNTER → 2022-11-27 10:47 | Outpatient (CLI) | payer OTHER, SELFPAY ==
[2022-11-27 11:47] LABS: Add Manual Diff / Slide Review NO; Basophils Absolute Auto 100 /uL (0-100); Eosinophils Absolute Auto 200 /uL (0-450); Eosinophils Percent Auto 2.4 % (2-4); Hematocrit 40.9 % (36-46); Hemoglobin 13.7 g/dL (12.0-16.0); Lymphocytes Absolute Auto 1300 /uL (1100-4500); Lymphocytes Percent Auto 16.8 % (25-40); Mean Corpuscular HGB Conc 33.5 % (30-36); Mean Corpuscular Hemoglobin 27.8 PG (26-34); Mean Corpuscular Volume 83.1 fL (80-100); Monocytes Absolute Auto 700 /uL (0-900); Monocytes Percent Auto 9.8 % (3-14); Neutrophils Absolute Auto 5200 /uL (1500-7000); Platelet Count 306 X10^3/uL (150-400); Red Blood Cell Count 4.92 X10^6/uL (4.0-5.2); Red Cell Distribution Width 22.3 % (11.6-14.8); White Blood Cell Count 7.5 X10^3/uL (4.5-11.0)
[2022-11-27 12:07] LABS: HEMOLYSIS < 15 (0-50); Iron 121 ug/dL (37-170)
[2022-11-27 12:19] LABS: Percent Iron Saturation 38 % (15-50); Total Iron Binding Capacity 322 ug/dL (265-497); Transferrin 239 mg/dL (206-381)
[2022-11-27 12:29] LABS: Anisocytosis 1+
== END ==
PROVIDERS: PCP Family Medicine; Referring Provider Family Medicine; Visit Provider Family Medicine
DX: D50.9 Iron deficiency anemia, unspecified (principal)
CPT/HCPCS: 36415; 83540; 83550; 85025

== ENCOUNTER → 2022-12-13 10:29 | Outpatient (CLI) | payer OTHER, SELFPAY ==
[2022-12-13 12:28] LABS: Hemoglobin A1C% w Est Avg Glu 9.5 % (4.0-6.0)
[2022-12-13 13:55] LABS: Vitamin B12 215 pg/mL (239-931)
== END ==
PROVIDERS: PCP Family Medicine; Referring Provider Physician Assistant; Visit Provider Physician Assistant
DX: E10.65 Type 1 diabetes mellitus with hyperglycemia (principal); G63 Polyneuropathy in diseases classified elsewhere
CPT/HCPCS: 36415; 82607; 83036

== ENCOUNTER → 2023-03-15 14:38 | Outpatient (CLI) | payer OTHER, SELFPAY ==
[2023-03-15 16:20] LABS: Vitamin B12 899 pg/mL (239-931)
== END ==
PROVIDERS: PCP Family Medicine; Referring Provider Physician Assistant; Visit Provider Physician Assistant
DX: E53.8 Deficiency of other specified B group vitamins (principal)
CPT/HCPCS: 36415; 82607

== ENCOUNTER → 2023-07-26 16:35 | Outpatient (CLI) | payer OTHER, SELFPAY | PROVIDERS: PCP Family Medicine; Referring Provider Family Medicine; Visit Provider Family Medicine | DX: Z23 Encounter for immunization (principal) | CPT/HCPCS: 90471; 90686 ==

== ENCOUNTER → 2023-09-17 09:35 | Outpatient (CLI) | payer OTHER, SELFPAY ==
[2023-09-17 10:46] LABS: Hemoglobin A1C% w Est Avg Glu 9.9 % (4.0-6.0)
[2023-09-17 10:54] LABS: Alanine Aminotransferase 17 IU/L (<35); Albumin 4.1 g/dL (3.5-5.0); Albumin Globulin Ratio 1.3 (1.0-2.8); Alkaline Phosphatase 60 U/L (38-126); Aspartate Aminotransferase 23 IU/L (14-36); BUN Creatinine Ratio 18.6 (6-22); Bilirubin Total 0.6 mg/dL (0.2-1.3); Blood Urea Nitrogen 11 mg/dL (7-17); Calcium 9.8 mg/dL (8.4-10.2); Carbon Dioxide 28 mmol/L (22-32); Chloride 92 mmol/L (98-107); Cholesterol 170 mg/dL (140-199); Estimated Glomerular Filt Rate > 60 mL/min (>60); Globulin 3.2 g/dL (1.7-4.1); Glucose 244 mg/dL (70-100); HDL Cholesterol 69 mg/dL (40-60); HEMOLYSIS < 15 (0-50); LDL Cholesterol Calculated 88 mg/dL (<100); Potassium 4.3 mmol/L (3.4-5.1); Sodium 127 mmol/L (137-145); Total Protein 7.3 g/dL (6.3-8.2); Triglycerides 66 mg/dL (35-150)
[2023-09-17 11:43] LABS: Creatinine Urine Random 108.9 mg/dL
[2023-09-17 11:52] LABS: Microalbumi Creatinin Ratio Ur 134.9 ug/mg CR (<30); Microalbumin Urine Random 14.7 mg/dL (0-1.6)
== END ==
PROVIDERS: PCP Family Medicine; Referring Provider Family Medicine; Visit Provider Family Medicine
DX: E10.65 Type 1 diabetes mellitus with hyperglycemia (principal); E78.00 Pure hypercholesterolemia, unspecified
CPT/HCPCS: 36415; 80053; 80061; 82043; 82570; 83036

== ENCOUNTER → 2024-03-06 07:14 | Outpatient (CLI) | payer OTHER, SELFPAY ==
--- NOTE | 2024-03-06 07:15 | DI.MRI.S_ITS ---
PROCEDURE: MR LUMBAR SPINE WO CON INDICATIONS: SPINAL STENOSIS TECHNIQUE: Noncontrast sagittal T1 spin echo and T2 fast echo, sagittal STIR, and T2 fast spin echo through the lumbar spine. In cases with scoliosis, additional coronal T2 fast spin echo may be performed. COMPARISON: None. FINDINGS: Image quality: Excellent. Alignment and Curvature: Straightening of the normal lumbar lordosis. Bone Marrow: Reactive endplate changes, most pronounced at L4-5 and L5-S1. L1 vertebral body hemangioma. Marrow is of normal overall signal. No acute vertebral body compression fractures. Spinal Cord: Conus medullaris terminates at the L1 level. Visualized cord demonstrates normal signal and size. Paraspinous Soft Tissues: No paravertebral masses. T12-L1: Normal appearance. L1-L2: Facet arthropathy. No central canal or neural foraminal stenosis. L2-L3: Disc desiccation and mild disc bulge. Facet arthropathy. No central canal or neural foraminal stenosis. L3-L4: Disc desiccation height loss. Posterior disc bulge. Facet arthropathy and thickening of ligamentum flavum. Epidural lipomatosis. Mild central canal stenosis. No significant neural foraminal stenosis. L4-L5: Disc desiccation height loss. Posterior disc bulge. Facet arthropathy and thickening of ligamentum flavum. Mild to moderate central canal stenosis. Mild left and no right neural foraminal stenosis. L5-S1: Disc desiccation height loss. Diffuse disc bulge. Facet arthropathy. No central canal stenosis. Moderate right and no left neural foraminal stenosis. IMPRESSION: 1. Multilevel degenerative changes of the lumbar spine as described above. 2. [id number] central canal stenosis at L4-5. Mild central canal stenosis at L3-L4. 3. Moderate right neural foraminal stenosis at L5-S1. Dictated by: Will Jerry M.D. on 03/06/2024 at 11:47 Approved by: Will Jerry M.D. on 03/06/2024 at 11:50
== END ==
PROVIDERS: PCP Family Medicine; Referring Provider Physical Medicine & Rehabilitation Pain Medicine; Visit Provider Physical Medicine & Rehabilitation Pain Medicine
DX: M48.062 Spinal stenosis, lumbar region with neurogenic claudication (principal); M48.07 Spinal stenosis, lumbosacral region; M47.816 Spondylosis without myelopathy or radiculopathy, lumbar region; M47.817 Spondylosis without myelopathy or radiculopathy, lumbosacral region
CPT/HCPCS: 72148

== ENCOUNTER → 2024-07-31 07:17 | Outpatient (CLI) | payer OTHER, SELFPAY ==
[2024-07-31 08:47] LABS: Alanine Aminotransferase 17 IU/L (<35); Albumin Globulin Ratio 1.2 (1.0-2.8); Alkaline Phosphatase 60 U/L (38-126); Aspartate Aminotransferase 24 IU/L (14-36); BUN Creatinine Ratio 16.7 (6-22); Bilirubin Total 0.4 mg/dL (0.2-1.3); Blood Urea Nitrogen 9 mg/dL (7-17); Calcium 9.8 mg/dL (8.4-10.2); Carbon Dioxide 25 mmol/L (22-32); Chloride 92 mmol/L (98-107); Cholesterol 154 mg/dL (140-199); Estimated Glomerular Filt Rate > 60 mL/min (>60); Globulin 3.3 g/dL (1.7-4.1); Glucose 208 mg/dL (70-100); HDL Cholesterol 74 mg/dL (40-60); HEMOLYSIS < 15 (0-50); LDL Cholesterol Calculated 68 mg/dL (<100); Potassium 4.2 mmol/L (3.4-5.1); Sodium 127 mmol/L (137-145); Total Protein 7.3 g/dL (6.3-8.2); Triglycerides 60 mg/dL (35-150)
[2024-07-31 09:14] LABS: Creatinine Urine Random 75.98 mg/dL
[2024-07-31 09:55] LABS: Hemoglobin A1C% w Est Avg Glu 10.2 % (4.0-6.0)
== END ==
PROVIDERS: PCP Family Medicine; Referring Provider Family Medicine; Visit Provider Family Medicine
DX: D50.9 Iron deficiency anemia, unspecified (principal); E10.65 Type 1 diabetes mellitus with hyperglycemia; E78.00 Pure hypercholesterolemia, unspecified; I10 Essential (primary) hypertension
CPT/HCPCS: 36415; 80053; 80061; 82043; 82570; 83036

== ENCOUNTER 2024-10-11 10:15 | Emergency (ER) | payer OTHER, SELFPAY ==
[2024-10-11 10:39] VITALS: BP 138/77; PULSE 64; RESP 16; TEMP 36.9; O2SAT 99; BMI 28.1
--- NOTE | 2024-10-11 10:47 | ED.SKABFB ---
HPI - Skin/Abscess/Foreign Bdy General Chief complaint: Skin/Abscess/Foreign Body Stated complaint: Diabetic Left foot Ulcer Time Seen by Provider: 10/11/24 10:47 Source: patient Mode of arrival: Family Vehicle Limitations: no limitations History of Present Illness HPI narrative: 54-year-old female history of diabetes, hypercholesterolemia, hypertension, comes into the ED from home for evaluation of ulcer to the left foot. 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 Therefore decided come into the ED for further evaluation treatment. 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 No other symptoms or complaints at this time. Related Data Home Medications Medication Instructions Recorded Confirmed dupilumab 300 mg/2 mL subcutaneous 300 mg SUBCUT Q2W 04/11/23 08/08/24 syringe ([facility]) Previous Rx's Medication Instructions Recorded ferumoxytol 510 mg/17 mL (30 510 mg (17 mL) IV Q3D 2 doses #17 10/17/22 mg/mL) intravenous solution mL (Feraheme) metformin 500 mg tablet 500 mg PO BID #180 tabs 10/22/23 amoxicillin 500 mg-potassium 1 tab PO BID #14 tabs 01/04/24 clavulanate 125 mg tablet ezetimibe 10 mg tablet 10 mg PO DAILY #90 tabs 03/05/24 polysaccharide iron complex 150 mg 150 mg PO DAILY #90 caps 05/06/24 iron capsule (Ferrex) duloxetine 60 mg capsule,delayed See Rx Instructions .Route 05/12/24 release .COMPLEX #90 caps lisinopril 5 mg tablet 5 mg PO DAILY #90 tabs 08/08/24 fluconazole 150 mg tablet 150 mg PO Q3D 2 doses #2 tabs 08/14/24 insulin aspart U-100 100 unit/mL See Rx Instructions .Route 08/29/24 subcutaneous solution (Novolog .COMPLEX #30 mL U-100 Insulin aspart) blood sugar diagnostic (Accu-Chek #100 strips 09/05/24 Guide test strips) Accucheck Guidelink meter #1 ea 09/08/24 Accucheck Guidelink test strips #100 ea 09/08/24 doxycycline hyclate 100 mg tablet 100 mg PO BID 14 days #28 tabs 10/11/24 Allergies Allergy/AdvReac Type Severity Reaction Status Date / Time amoxicillin Allergy Mild HIVES Verified 08/08/24 09:12 Sulfa (Sulfonamide Allergy Mild HIVES/RASH Verified 08/08/24 09:12 Antibiotics) rosuvastatin AdvReac Intermediate polymyalgia Verified 08/08/24 09:12 s Review of Systems Review of Systems Narrative: General: Denies fever, chills, weight loss HEENT: Denies headache, eye drainage, eye irritation, head trauma, sore throat, voice change Cardiovascular: Denies any chest pain, palpitations, shortness of breath, tachycardia Respiratory: Denies any shortness of breath, cough, wheeze, stridor GI/: Denies any abdominal pain, nausea, vomiting, diarrhea, bright red blood per rectum, melanotic stools, urinary frequency, urinary retention, dysuria, hematuria MSK: Denies any joint pain, muscle pains, swelling Skin: Ulcer to bottom of left foot Neuro: Denies any headache, lightheadedness, dizziness, fainting, weakness Psych: Denies SI/HI Patient History Medical History Gastroparesis Iron deficiency anemia (2014) 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 Peripheral neuropathy Pure hypercholesterolemia Type 1 diabetes mellitus Social History marital status: number of children: 3 household members: family lives independently: Yes caregiver/support person: No housing: house education level: college occupational status: employed current occupational exposures/hazards: No Smoking Status: Former smoker alcohol intake: current substance use type: marijuana Smoking Status: Former smoker tobacco type: cigarettes alcohol intake frequency: 0-2 drinks per day Exam Narrative Exam Narrative: General: Cooperative, comfortable, well-developed, not in acute distress HEENT: Normocephalic, atraumatic, PERRLA, normal sclera, eyelids normal, Neck: Active full range of motion, atraumatic Chest: Normal to inspection, negative crepitus, no overlying erythema ecchymosis Respiratory: Normal respiratory effort, not in acute respiratory distress, clear to auscultation bilaterally negative cough, wheeze, tachypnea, rhonchi, rales Cardiology: Regular rate rhythm negative gallop, murmur, rubs GI/: Normal to inspection, soft, nonrigid, no tenderness to palpation, exam deferred MSK: Full range of active range of motion of all 4 extremities, atraumatic Skin: There is a callus noted at the base of the left toe, no active purulent discharge no surrounding erythema, no streaking neurovascularly intact no crepitus Neuro: Alert awake oriented x3, moves all 4 extremities spontaneously, cranial nerves intact, able to answer all questions appropriately follows commands appropriately Psych: Cooperative, negative suicidal or homicidal ideations Initial Vital Signs Initial Vital Signs: Vital Signs Temperature 98.4 F 10/11/24 10:39 Pulse Rate 64 10/11/24 10:39 Respiratory Rate 16 10/11/24 10:39 Blood Pressure 138/77 10/11/24 10:39 Pulse Oximetry 99 10/11/24 10:39 Oxygen Delivery Method Room Air 10/11/24 10:39 Course Vital Signs Vital signs: Vital Signs - 8 hr 10/11/24 10:39 Temperature 98.4 F Pulse Rate 64 Respiratory Rate 16 Blood Pressure 138/77 Pulse Oximetry 99 Oxygen Delivery Method Room Air MDM - Skin/Abscess/Foreign Bdy Differential Diagnosis Differential diagnosis: Likely other (Diabetic foot ulcer, cellulitis) Lab Data Labs: Point of Care Testing Glucose POC 209 MDM Narrative Medical decision making narrative: 54-year-old female history of diabetes hypertension hyperlipidemia presents for ulcer to the base of the left foot noticed this yesterday, 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 States that she is worried that is/will become infected but denies any symptoms such as pain tingling numbness or trauma to the foot. Patient neurovascularly intact to bilateral lower extremities. Callus noted to the base of the left foot with small opening consistent with developing stage I ulcer. Given patient diabetic we will treat with empiric antibiotics, patient was instructed follow up with her alfalfa dehydrator operator in the outpatient setting she verbalized understanding of this and agrees to being discharged home with outpatient follow up Discharge Plan Departure Patient Disposition: Home Clinical Impression: Diabetic foot ulcer Activity Restrictions/Additional Instructions: Please follow-up with your alfalfa dehydrator operator Please read the discharge instructions sheet carefully and bring all papers to all doctor follow-up visits, as it may contain information that your doctor may want to see. Disease processes change and evolve, if your symptoms worsen or if you develop any new symptoms that are concerning to you please return for evaluation. Your evaluation today does not show any evidence of any life-threatening/serious illnesses requiring admission to the hospital or surgery. Please follow-up with your doctor for re-evaluation in approximately 1 day. Seek immediate medical attention for any worrisome symptoms. *If you do not have a primary care provider please contact the [facility] Resource line at [phone]. They will ask some questions about your medical history and help get you set up with a doctor in the community. Prescriptions: New doxycycline hyclate 100 mg tablet 100 mg PO BID 14 Days Qty: 28 0RF No Action amoxicillin-pot clavulanate 500-125 mg tablet 1 tab PO BID Qty: 14 0RF lisinopril 5 mg tablet 5 mg PO DAILY Qty: 90 3RF ferumoxytol [Feraheme] 510 mg/17 mL (30 mg/mL) solution 510 mg IV Q3D Qty: 17 0RF Rx Instructions: administer at a rate of up to 1 mL /sec (30 mg /sec ). Second dose to be given between day 3 through 8. Dupixent Syringe 300 mg/2 mL syringe 300 mg SUBCUT Q2W metformin 500 mg tablet 500 mg PO BID Qty: 180 3RF ezetimibe 10 mg tablet 10 mg PO DAILY Qty: 90 3RF polysaccharide iron complex [Ferrex 150] 150 mg iron capsule 150 mg PO DAILY Qty: 90 1RF duloxetine 60 mg capsule,delayed release(DR/EC) See Rx Instructions .ROUTE .COMPLEX Qty: 90 3RF Dose Instruction: TAKE ONE CAPSULE BY MOUTH TWICE DAILY Rx Instructions: TAKE ONE CAPSULE BY MOUTH TWICE DAILY fluconazole 150 mg tablet 150 mg PO Q3D Qty: 2 0RF Rx Instructions: take on tab, if symptoms persist after 3 days may take second tab insulin aspart U-100 [Novolog U-100 Insulin aspart] 100 unit/mL solution See Rx Instructions .ROUTE .COMPLEX Qty: 30 3RF Dose Instruction: INJECT 100 UNITS CONTINUOUS SUBCUTANEOUS INFUSION DAILY Rx Instructions: INJECT 100 UNITS CONTINUOUS SUBCUTANEOUS INFUSION DAILY (DME) Accu-Chek Guide test strips Strip See Rx Instructions .ROUTE .COMPLEX Qty: 100 0RF Dose Instruction: USE TO TEST BLOOD GLUCOSE LEVELS THREE TIMES A DAY Rx Instructions: USE TO TEST BLOOD GLUCOSE LEVELS THREE TIMES A DAY (DME) Accucheck Guidelink meter See Rx Instructions .Route .MEDSUPPSoufun Qty: 1 1RF Rx Instructions: As directed to monitor blood glucose three times daily (DME) Accucheck Guidelink test strips See Rx Instructions .Route .MEDTrovali Qty: 100 3RF Rx Instructions: As directed to test blood glucose three times daily Referrals: Edie Dela Cruz MD [Primary Care Provider] - Stand Alone Forms: Patient Portal/API/Survey
--- NOTE | 2024-10-11 10:50 | PC.NURSE ---
Pt reports 3 days of being on feet; states she has been having uncontrolled blood sugars over the past week ranging from 400-600. Pt states she has been eating a lot of sweets and has not managed her T1DM very well this week. Wound noted on right foot. Redness around site noted. Pt states she only has pain when she presses on wound.
[2024-10-11] MEDS: DOXYCYCLINE HYCLATE 100 MG TABLET PO (11:09)
[2024-10-11 11:11] VITALS: RESP 17
== END 2024-10-11 11:12 | disposition home or self-care (01) ==
PROVIDERS: Emergency Provider Student in an Organized Health Care Education/Training Program; PCP Family Medicine
DX: E10.621 Type 1 diabetes mellitus with foot ulcer (principal); L97.529 Non-pressure chronic ulcer of other part of left foot with unspecified severity
CPT/HCPCS: 82962; 99283

== ENCOUNTER → 2024-11-10 11:38 | Outpatient (CLI) | payer OTHER, SELFPAY ==
[2024-11-10 11:58] LABS: Add Manual Diff / Slide Review NO; Basophils Absolute Auto 100 /uL (0-100); Basophils Percent Auto 0.7 % (0-2); Eosinophils Absolute Auto 300 /uL (0-450); Eosinophils Percent Auto 3.8 % (2-4); Hematocrit 42.4 % (36-46); Hemoglobin 14.5 g/dL (12.0-16.0); Lymphocytes Absolute Auto 1600 /uL (1100-4500); Mean Corpuscular HGB Conc 34.3 % (30-36); Mean Corpuscular Hemoglobin 31.8 PG (26-34); Mean Corpuscular Volume 92.5 fL (80-100); Monocytes Absolute Auto 900 /uL (0-900); Monocytes Percent Auto 10.1 % (3-14); Neutrophils Absolute Auto 6000 /uL (1500-7000); Neutrophils Percent Auto 67.4 % (50-75); Platelet Count 369 X10^3/uL (150-400); Red Blood Cell Count 4.58 X10^6/uL (4.0-5.2); White Blood Cell Count 8.9 X10^3/uL (4.5-11.0)
[2024-11-10 12:32] LABS: Vitamin D 25 Hydroxy (D3) 37.4 ng/mL (30.0-100.0)
[2024-11-10 12:47] LABS: TSH w/ Reflex to FT4 0.67 uIU/mL (0.47-4.68)
[2024-11-10 13:04] LABS: Vitamin B12 > 1000 pg/mL (239-931)
== END ==
PROVIDERS: PCP Family Medicine; Referring Provider Family Medicine; Visit Provider Family Medicine
DX: E10.65 Type 1 diabetes mellitus with hyperglycemia (principal); R53.83 Other fatigue
CPT/HCPCS: 36415; 82306; 82607; 84443; 85025

== ENCOUNTER → 2025-03-05 14:08 | Outpatient (CLI) | payer OTHER, SELFPAY ==
--- NOTE | 2025-03-05 14:09 | DI.RAD.S_ITS ---
PROCEDURE: XR KNEE LT 3V INDICATIONS: pain in L knee TECHNIQUE: 3 views of the knee were acquired. COMPARISON: [facility], , XR KNEE LT 3V, 11/03/2019, 10:05. FINDINGS: Bones: No fractures or dislocations. No suspicious bony lesions. Mild tricompartmental osteoarthritis. Soft tissues: Moderate joint effusion. No suspicious soft tissue calcifications. IMPRESSION: Moderate knee joint effusion, without displaced fracture. Correlate with trauma as this effusion may indicate internal derangement. Dictated by: Bryan Martell M.D. on 03/05/2025 at 17:26 Approved by: Bryan Martell M.D. on 03/05/2025 at 17:26
== END ==
PROVIDERS: PCP Family Medicine; Referring Provider Family Medicine; Visit Provider Family Medicine
DX: M17.12 Unilateral primary osteoarthritis, left knee (principal); M25.462 Effusion, left knee; M25.562 Pain in left knee
CPT/HCPCS: 73562

== ENCOUNTER 2025-03-21 12:20 | Emergency (ER) | payer OTHER, SELFPAY ==
[2025-03-21] VITALS (11 sets, daily range): BP systolic 136–183; BP diastolic 71–96; PULSE 87–101; RESP 15–31; TEMP 36.9; O2SAT 96–98; BMI 28.1
[2025-03-21 13:01] LABS: Base Excess VBG -0.3 mmol/L (0-4); HCO3 VBG 25 mmol/L (24-28); Oxygen Saturation VBG 54 % (70-75); PCO2 VBG 40.8 mmHg (45-50); PO2 VBG 29 mmHg (35-45); Total CO2 VBG 24 mmol/L (24-29); pH VBG 7.39 (7.33-7.43)
[2025-03-21 13:25] LABS: Ketones (Beta-Hydroxybutyrate) 0.66 mmol/L (<0.27)
[2025-03-21] MEDS: ONDANSETRON 4 MG/2 ML INJ IV (13:29)
[2025-03-21] MEDS: SODIUM CHLORIDE 0.9% 1,000 ML 1000 ML IV (13:29)
--- NOTE | 2025-03-21 13:30 | ED_ITS ---
HPI - General Adult General Chief complaint: Diabetic Problem Stated complaint: type 1 diabetic ketoacidosis Time Seen by Provider: 03/21/25 12:35 Mode of arrival: Ambulatory History of Present Illness HPI narrative: 54-year-old female history of type 1 diabetes gastroparesis iron deficiency anemia peripheral neuropathy dyslipidemia presents with nonbilious nonbloody vomit and watery diarrhea multiple episodes and abdominal cramping since Sunday unable to hold anything down at this time. Patient denies fever, chills, cough, runny nose, sore throat, chest pain, shortness breath, dyspnea on exertion, leg pain, leg swelling, or recent antibiotic use. Other than what is stated 14 point review of system is negative. Related Data Home Medications ?Medication ?Instructions ?Recorded ?Confirmed dupilumab 300 mg/2 mL subcutaneous 300 mg SUBCUT Q2W 0 04/11/23 02/06/25 syringe ([facility]) blood-glucose sensor (Guardian 4 #1 ea 02/06/25 Glucose Sensor device) blood-glucose transmitter #1 ea 02/06/25 02/06/25 (Guardian 4 Transmitter device) clobetasol 0.05 % topical ointment topical DAILY 02/0602/06/25 Previous Rx's ?Medication ?Instructions ?Recorded fluconazole 150 mg tablet 150 mg PO Q3D 2 doses #2 tab s 08/14/24 blood sugar diagnostic (Accu-Chek #100 strips 09/05/24 Guide test strips) Accucheck Guidelink meter #1 ea 09/08/24 Accucheck Guidelink test strips #100 ea 09/08/24 metformin 500 mg tablet 500 mg PO BID #180 tabs 04/08 polysaccharide iron complex 150 mg 150 mg PO DAILY #90 caps 11/03/24 iron capsule (Ferrex) metoclopramide HCl 5 mg tablet 5 mg PO QACHS #90 tabs 11/07/24 duloxetine 60 mg capsule,delayed See Rx Instructions . Route 11/10/24 release .COMPLEX #90 caps losartan 25 mg tablet 50 mg (2 x 25 mg) PO DAILY # 180 11/17/24 tabs insulin aspart U-100 100 unit/mL 100 unit SUBCUT DAILY #30 mL 02/25/25 subcutaneous solution ezetimibe 10 mg tablet 10 mg PO DAILY #90 tabs 04/08 ondansetron HCl 4 mg tablet 4 mg PO Q8H PRN nausea and 03/21/25 vomiting #30 tabs Allergies Allergy/AdvReac Type Severity Reaction Status Date / Time Sulfa (Sulfonamide Allergy Mild HIVES/RASH Verified 03/21/25 12:30 Antibiotics) rosuvastatin AdvReac Intermediate polymyalgia Verified 03/21/25 12:30 s Review of Systems Review of Systems ROS Unobtainable: All systems reviewed & are unremarkable except as noted in HPI and below Patient History Medical History Gastroparesis Iron deficiency anemia (2015) 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 Well-developed patient, in mild distress. HEAD: Atraumatic. Normocephalic. EYES: Pupils equal round and reactive. Extraocular motions intact. No scleral icterus. No injection or drainage. ENT: Nose without bleeding, purulent drainage. Throat without erythema, tonsillar hypertrophy or exudate. Airway patent. NECK: Trachea midline. Non tender CARDIOVASCULAR: Regular rate and rhythm without murmurs, gallops, or rubs. RESPIRATORY: Clear to auscultation. Breath sounds equal bilaterally. No wheezes, rales, or rhonchi. GASTROINTESTINAL: Abdomen soft, mild epigastric TTP but no r/r/g, nondistended. EXTREMITIES: No edema or joint tenderness. BACK: Nontender without deformity or crepitance. No flank tenderness. NEURO: AOx3. SKIN: No rash or erythema of visible areas Initial Vital Signs Initial Vital Signs: Vital Signs Pulse Rate 101 H 03/21/25 12:26 Blood Pressure 183/87 H 03/21/25 12:26 Pulse Oximetry 98 03/21/25 12:26 Course Orders Ordered: ED Orders 03/21/25 12:40 Ketones (Beta-Hydroxybutyrate) Stat 03/21/25 12:41 Venous Blood Gas STAT 03/21/25 12:56 Venous Blood Gas Routine Sodium Chloride (Normal Saline 0.9%) 1,000 mls @ 1,000 mls/hr IV BOLUS ONE Stop: 03/21/25 14:21 Last Admin: 03/21/25 13:29 Dose: 1,000 mls/hr Documented By: MS Discontinued Medications Ondansetron HCl (Ondansetron 4 Mg/2 Ml Inj) 4 mg IV NOW ONE Stop: 03/21/25 13:23 Last Admin: 03/21/25 13:29 Dose: 4 mg Documented By: Vital Signs Vital signs: Vital Signs - 8 hr 03/21/25 12:26 03/21/25 12:26 03/21/25 12:29 Temperature 98.4 F Pulse Rate 101 H 94 H Respiratory Rate 16 Blood Pressure 183/87 H 183/87 H Pulse Oximetry 98 98 Oxygen Delivery Method Room Air 03/21/25 12:30 03/21/25 12:30 03/21/25 13:00 Temperature Pulse Rate 95 H 96 H Respiratory Rate 20 Blood Pressure 166/84 H Pulse Oximetry 98 98 Oxygen Delivery Method 03/21/25 13:00 Temperature Pulse Rate Respiratory Rate Blood Pressure 168/77 H Pulse Oximetry Oxygen Delivery Method Medical Decision Making Lab Data Labs: Lab Results 03/21/25 03/21/25 Range/Units 12:40 12:56 VBG pH 7.39 (7.33-7.43) VBG pCO2 40.8 L (45-50) mmHg VBG pO2 29 L (35-45) mmHg VBG HCO3 25 (24-28) mmol/L VBG Total CO2 24 (24-29) mmol/L VBG O2 Saturation 54 L (70-75) % VBG Base Excess -0.3 L (0-4) mmol/L Ketones 0.66 H (<0.27) mmol/L Point of Care Testing Glucose POC 143 Point of care testing: Point of Care Testing Glucose POC [address] scan - abdomen/pelvis: Radiologist's Impression: [address] [address] [address] Scan Report Signed Patient: Aleksandra Eduardo MR#: [id number] : 1970 Acct:[id number] Age/Sex: 54 / F Date of Service: 03/21/25 Loc: ED Accession Number: [id number] Procedure: CT abdomen pelvis w con Ordering Provider: Leon Peoples D.O. PROCEDURE: CT ABDOMEN PELVIS W CON INDICATIONS: n/v/d abd cramping TECHNIQUE: After the administration of intravenous contrast, axial sections acquired from the lung bases to the pubic symphysis. Coronal and sagittal reformats were performed. For radiation dose reduction, the following was used: automated exposure control, adjustment of mA and/or kV according to patient size. COMPARISON: Report of prior study dated FINDINGS: Image quality: Diagnostic. Lower Chest: No significant findings. ABDOMEN: Liver: A 1.7 cm lesion in the right hepatic lobe posteriorly, probably corresponds to hemangioma mentioned previously. Gallbladder: No radiopaque gallstones or wall thickening. Biliary ducts: No biliary dilation. Pancreas: No ductal dilation. Spleen: Size is within normal limits. Adrenal Glands: No adrenal nodules. Kidneys and Ureters: No hydronephrosis. No solid mass. No complex renal cystic lesion which requires follow up. Stomach and Bowel: [id number] dilatation of the colon, fluid-filled. No transition point or obstructing lesion seen. Peritoneum: No abnormal intraperitoneal fluid. No free air. Ventral Wall: No significant ventral hernia. Abdominal Nodes: No retroperitoneal or mesenteric adenopathy by size criteria. Vessels: Aorta and inferior vena cava are normal in size. PELVIS: Pelvic Organs: Unremarkable. Bladder: No bladder wall thickening, accounting for underdistention. Pelvic Nodes: No enlarged lymph nodes. Miscellaneous: No inguinal hernias are seen. Bones: No aggressive osseous abnormality. IMPRESSION: 1. Prominent, fluid-filled colon, may be due to diarrhea or mild nonspecific colitis. No convincing signs of obstruction. 2. No acute abnormality otherwise. ECG Data Interpretation: NSR HR 92 FL [address] QRS [address]-t wave change Unchanged from 05/18/22 [facility] Narrative Medical decision making narrative: All lab work vital signs nurse triage note medication list previous ER visits and all imaging studies reviewed. Patient given fluids Zofran Reglan here patient feels much better on reexamination. Patient's sodium is 127 today but she runs chronically low dating back to 2014 with low-sodium, potassium 5.1 BUN 10 creatinine 0.72 glucose 128 lipase 45 ketones 0.66 but gap was 12. COVID flu RSV or pending at time of discharge as patient did not want to stay any longer for results and was feeling better. CT scan show prominent fluid-filled colon may be due to diary or mild nonspecific colitis no convincing evidence of obstruction no acute abnormality otherwise. DC home to keep hydrated clear liquid diet advance as tolerated and to return with new or worsening symptoms Discharge Plan Departure Patient Disposition: Home Clinical Impression: Nausea vomiting and diarrhea Abdominal pain Qualifiers: Abdominal location: generalized Qualified Code(s): R10.84 - Generalized abdominal pain Instructions: DI for Abdominal Pain-Adult Activity Restrictions/Additional Instructions: Return with new or worsening symptoms. Keep hydrated. Clear liquid diet advance as tolerated. Follow up with PCP next week if no improvement in symptoms. Take medicines as directed Prescriptions: New ondansetron HCl 4 mg tablet 4 mg PO Q8H PRN (Reason: nausea and vomiting) Qty: 30 0RF No Action metoclopramide HCl 5 mg tablet 5 mg PO QACHS Qty: 90 3RF clobetasol 0.05 % ointment topical DAILY (DME) Guardian 4 Glucose Sensor Device See Rx Instructions .ROUTE .MEDSUPPLY Qty: 1 Patient Comments: [NO ORIGINAL SIG] Rx Instructions: As directed (DME) Guardian 4 Transmitter Device See Rx Instructions .ROUTE .MEDSUPPLY Qty: 1 Patient Comments: [NO ORIGINAL SIG] Rx Instructions: As directed Dupixent Syringe 300 mg/2 mL syringe 300 mg SUBCUT Q2W fluconazole 150 mg tablet 150 mg PO Q3D Qty: 2 0RF Rx Instructions: take on tab, if symptoms persist after 3 days may take second tab (DME) Accu-Chek Guide test strips Strip See Rx Instructions .ROUTE .COMPLEX Qty: 100 0RF Dose Instruction: USE TO TEST BLOOD GLUCOSE LEVELS THREE TIMES A DAY Rx Instructions: USE TO TEST BLOOD GLUCOSE LEVELS THREE TIMES A DAY (DME) Accucheck Guidelink meter See Rx Instructions .Route .MEDSUPPLY Qty: 1 1RF Rx Instructions: As directed to monitor blood glucose three times daily (DME) Accucheck Guidelink test strips See Rx Instructions .Route .MEDSUPPLY Qty: 100 3RF Rx Instructions: As directed to test blood glucose three times daily metformin 500 mg tablet 500 mg PO BID Qty: 180 3RF polysaccharide iron complex [Ferrex 150] 150 mg iron capsule 150 mg PO DAILY Qty: 90 1RF duloxetine 60 mg capsule,delayed release(DR/EC) See Rx Instructions .ROUTE .COMPLEX Qty: 90 3RF Dose Instruction: TAKE ONE CAPSULE BY MOUTH TWICE DAILY Rx Instructions: TAKE ONE CAPSULE BY MOUTH TWICE DAILY losartan 25 mg tablet 50 mg PO DAILY Qty: 180 3RF insulin aspart U-100 100 unit/mL solution 100 unit SUBCUT DAILY Qty: 30 0RF ezetimibe 10 mg tablet 10 mg PO DAILY Qty: 90 3RF Referrals: Edie Dela Cruz MD [Primary Care Provider, Family Practice] Stand Alone Forms: Patient Portal/API
--- NOTE | 2025-03-21 13:42 | DI.CT.S_ITS ---
PROCEDURE: CT ABDOMEN PELVIS W CON INDICATIONS: n/v/d abd cramping TECHNIQUE: After the administration of intravenous contrast, axial sections acquired from the lung bases to the pubic symphysis. Coronal and sagittal reformats were performed. For radiation dose reduction, the following was used: automated exposure control, adjustment of mA and/or kV according to patient size. COMPARISON: Report of prior study dated FINDINGS: Image quality: Diagnostic. Lower Chest: No significant findings. ABDOMEN: Liver: A 1.7 cm lesion in the right hepatic lobe posteriorly, probably corresponds to hemangioma mentioned previously. Gallbladder: No radiopaque gallstones or wall thickening. Biliary ducts: No biliary dilation. Pancreas: No ductal dilation. Spleen: Size is within normal limits. Adrenal Glands: No adrenal nodules. Kidneys and Ureters: No hydronephrosis. No solid mass. No complex renal cystic lesion which requires follow up. Stomach and Bowel: [id number] dilatation of the colon, fluid-filled. No transition point or obstructing lesion seen. Peritoneum: No abnormal intraperitoneal fluid. No free air. Ventral Wall: No significant ventral hernia. Abdominal Nodes: No retroperitoneal or mesenteric adenopathy by size criteria. Vessels: Aorta and inferior vena cava are normal in size. PELVIS: Pelvic Organs: Unremarkable. Bladder: No bladder wall thickening, accounting for underdistention. Pelvic Nodes: No enlarged lymph nodes. Miscellaneous: No inguinal hernias are seen. Bones: No aggressive osseous abnormality. IMPRESSION: 1. Prominent, fluid-filled colon, may be due to diarrhea or mild nonspecific colitis. No convincing signs of obstruction. 2. No acute abnormality otherwise. Dictated by: Yong Cotton M.D. on 03/21/2025 at 14:16 Approved by: Yong Cotton M.D. on 03/21/2025 at 14:21
--- NOTE | 2025-03-21 13:51 | EKG_ITS ---
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
[2025-03-21 13:52] LABS: Add Manual Diff / Slide Review NO; Basophils Absolute Auto 100 /uL (0-100); Basophils Percent Auto 0.7 % (0-2); Eosinophils Absolute Auto 0 /uL (0-450); Eosinophils Percent Auto 0.7 % (2-4); Hematocrit 46.1 % (36-46); Hemoglobin 15.6 g/dL (12.0-16.0); Lymphocytes Absolute Auto 500 /uL (1100-4500); Lymphocytes Percent Auto 7.1 % (25-40); Mean Corpuscular HGB Conc 33.9 % (30-36); Mean Corpuscular Hemoglobin 31.9 PG (26-34); Monocytes Absolute Auto 1100 /uL (0-900); Monocytes Percent Auto 14.9 % (3-14); Neutrophils Absolute Auto 5400 /uL (1500-7000); Neutrophils Percent Auto 76.6 % (50-75); Platelet Count 317 X10^3/uL (150-400); Red Cell Distribution Width 13.3 % (11.6-14.8); White Blood Cell Count 7.1 X10^3/uL (4.5-11.0)
[2025-03-21] MEDS: KETOROLAC 30 MG/ML VIAL IV (13:55)
[2025-03-21 14:01] LABS: Alanine Aminotransferase 21 IU/L (<35); Albumin 4.5 g/dL (3.5-5.0); Albumin Globulin Ratio 1.4 (1.0-2.8); Alkaline Phosphatase 67 U/L (38-126); Aspartate Aminotransferase 45 IU/L (14-36); BUN Creatinine Ratio 13.9 (6-22); Bilirubin Total 0.8 mg/dL (0.2-1.3); Blood Urea Nitrogen 10 mg/dL (7-17); Calcium 9.1 mg/dL (8.4-10.2); Carbon Dioxide 21 mmol/L (22-32); Chloride 94 mmol/L (98-107); Estimated Glomerular Filt Rate > 60 mL/min (>60); Globulin 3.3 g/dL (1.7-4.1); Glucose 128 mg/dL (70-99); Lipase 45 U/L (23-300); Potassium 5.1 mmol/L (3.4-5.1); Sodium 127 mmol/L (137-145); Total Protein 7.8 g/dL (6.3-8.2)
[2025-03-21 14:02] LABS: HEMOLYSIS 98 (0-50)
[2025-03-21 14:06] LABS: Ictotest Urine Negative (Negative); Urine Volume 10mL (spun)
[2025-03-21 14:07] LABS: Amorphous Sediment Urine 1+; Bacteria Urine Occasional (0-1); Mucus Urine 1+ (Negative); RBC Urine None Seen (0-5/HPF); Squamous Epithelial Cell Urine 5-10 /HPF (0-5/HPF); WBC Urine 5-10/HPF (0-5/HPF)
[2025-03-21] MEDS: METOCLOPRAMIDE 10 MG/2 ML INJ IV (14:58)
[2025-03-21 15:46] LABS: Influenza A - CEPHEID Flu A NEGATIVE (NEGATIVE); Influenza B - CEPHEID Flu B NEGATIVE (NEGATIVE); Respiratory Syncytial Virus Negative (Negative)
[2025-03-21 15:54] LABS: COVID-19 CEPHEID 4-PLEX PCR Negative (Negative)
== END 2025-03-21 15:45 | disposition home or self-care (01) ==
PROVIDERS: Emergency Provider Family Medicine; PCP Family Medicine
DX: R10.84 Generalized abdominal pain (principal); R11.2 Nausea with vomiting, unspecified; R19.7 Diarrhea, unspecified
CPT/HCPCS: 0241U; 36415; 74177; 80053; 81003; 81015; 82009; 82805; 82962; 83690; 85025; 87086; 93005; 96361; 96374; 96375; 99284; J1885; J2405; J2765; Q9967

== ENCOUNTER 2025-04-15 10:46 | Emergency (ER) | payer OTHER, SELFPAY ==
[2025-04-15 10:50] VITALS: BP 142/79; PULSE 92; PULSE 94; RESP 19; O2SAT 98; O2SAT 99
[2025-04-15 10:54] VITALS: BP 142/79; PULSE 87; RESP 19; TEMP 36.3; O2SAT 99; BMI 28.1
--- NOTE | 2025-04-15 11:08 | ED.LOWEXIN ---
HPI - Extremity Injury (Lower) <Leticia Caicedo PA-C - Last Filed: 04/15/25 12:29> General Chief Complaint: Extremity Injury, Lower Stated Complaint: cellulitis in left foot x 5 days Time Seen by Provider: 04/15/25 10:50 Source: patient Mode of arrival: Ambulatory History of Present Illness HPI Narrative: Ms. Inessa Willingham is a very pleasant 54-year-old female with a past medical history of type 1 diabetes well controlled, peripheral neuropathy. HTN, hypercholesterolemia who presents to the emergency department for left foot redness and swelling x 5 days. Patient was wearing sneakers for multiple days and noticed that the left side of her foot started to get irritated. She then noticed that her left pinky toe started to get red and swollen and it is now starting to spread onto the top of her foot. She admits to mild pain at this area but no difficulty with ambulation. No changes in her baseline neuropathy. No direct trauma or open wounds. Because of her history of diabetes she wanted it to be evaluated for concern of cellulitis. She has had cellulitis in the past but was always due to a wound. She denies chest pain, shortness of breath, fevers, chills, flu-like symptoms, abdominal pain, nausea, vomiting, calf pain or swelling. Besides her left pinky toe, she feels normal and well. Related Data Home Medications ?Medication ?Instructions ?Recorded ?Confirmed dupilumab 300 mg/2 mL subcutaneous 300 mg SUBCUT Q2W 04/11/23 03/26/25 syringe ([employer]) blood-glucose sensor (Guardian 4 #1 ea 02/06/25 03/26/25 Glucose Sensor device) blood-glucose transmitter #1 ea 02/06/25 03/26/25 (Guardian 4 Transmitter device) clobetasol 0.05 % topical ointment topical DAILY 02/06/25 03/26/25 Previous Rx's ?Medication ?Instructions ?Recorded fluconazole 150 mg tablet 150 mg PO Q3D 2 doses #2 tabs 08/14/24 blood sugar diagnostic (Accu-Chek #100 strips 09/05/24 Guide test strips) Accucheck Guidelink meter #1 ea 09/08/24 Accucheck Guidelink test strips #100 ea 09/08/24 metformin 500 mg tablet 500 mg PO BID #180 tabs 10/20/24 polysaccharide iron complex 150 mg 150 mg PO DAILY #90 caps 11/03/24 iron capsule (Ferrex) metoclopramide HCl 5 mg tablet 5 mg PO QACHS #90 tabs 11/07/24 duloxetine 60 mg capsule,delayed See Rx Instructions .Route 11/10/24 release .COMPLEX #90 caps losartan 25 mg tablet 50 mg (2 x 25 mg) PO DAILY #180 11/17/24 tabs ezetimibe 10 mg tablet 10 mg PO DAILY #90 tabs 03/20/25 ondansetron HCl 4 mg tablet 4 mg PO Q8H PRN nausea and 03/21/25 vomiting #30 tabs meloxicam 15 mg tablet 15 mg PO DAILY #30 tabs 03/26/25 insulin aspart U-100 100 unit/mL 100 unit SUBCUT DAILY #30 mL 03/30/25 subcutaneous solution cephalexin 500 mg capsule 500 mg PO QID 7 days #28 caps 04/15/25 Allergies Allergy/AdvReac Type Severity Reaction Status Date / Time Sulfa (Sulfonamide Allergy Mild HIVES/RASH Verified 04/15/25 10:55 Antibiotics) rosuvastatin AdvReac Intermediate polymyalgia Verified 04/15/25 10:55 s Review of Systems <Leticia Caicedo PA-C - Last Filed: 04/15/25 12:29> Review of Systems ROS Unobtainable: All systems reviewed & are unremarkable except as noted in HPI and below Patient History <Leticia Caicedo PA-C - Last Filed: 04/15/25 12:29> Medical History 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 Gastroparesis Pure hypercholesterolemia Peripheral neuropathy Type 1 diabetes mellitus Iron deficiency anemia (2014) Social History marital status: number of children: 3 household members: family lives independently: Yes caregiver/support person: No housing: house education level: college occupational status: employed current occupational exposures/hazards: No alcohol intake: current substance use type: marijuana tobacco type: cigarettes alcohol intake frequency: 0-2 drinks per day Exam <Leticia Caicedo PA-C - Last Filed: 04/15/25 12:29> Narrative Exam Narrative: GENERAL: 54 year old patient appears stated age. Well-developed patient, in no acute distress. HEAD: Atraumatic. Normocephalic. EYES: No scleral icterus. No injection or drainage. NECK: Trachea midline. Cervical ROM intact. CARDIOVASCULAR: Regular rate and rhythm. RESPIRATORY: ?Nonlabored respirations. ?Speaking in clear, full sentences. ?Clear to auscultation. Breath sounds equal bilaterally. No wheezes, rales, or rhonchi. ? EXTREMITIES: There is erythema and nonpitting edema of the left 5th toe with erythema extending to the mid dorsal foot. There is no induration fluctuance or drainage. No streaking erythema up the leg. There is brisk capillary refill. There is no open wound. No calf swelling or tenderness bilaterally. Strong DP and PT pulses bilaterally. NEURO: AOx3. ?Clear speech. ?Moves all 4 extremities appropriately. SKIN: Warm, dry. Erythema of dorsal left foot described above. Initial Vital Signs Initial Vital Signs: Vital Signs Pulse Rate 92 H 04/15/25 10:50 Respiratory Rate 19 04/15/25 10:50 Blood Pressure 142/79 H 04/15/25 10:50 Pulse Oximetry 98 04/15/25 10:50 Oxygen Delivery Method Room Air 04/15/25 10:50 <Margaux Hand DO - Last Filed: 04/15/25 18:50> Initial Vital Signs Initial Vital Signs: Vital Signs Pulse Rate 92 H 04/15/25 10:50 Respiratory Rate 19 04/15/25 10:50 Blood Pressure 142/79 H 04/15/25 10:50 Pulse Oximetry 98 04/15/25 10:50 Oxygen Delivery Method Room Air 04/15/25 10:50 Course <Leticia Caicedo PA-C - Last Filed: 04/15/25 12:29> Orders Ordered: ED Orders 04/15/25 11:10 CBC Auto Diff [Complete Blood Count AUTO DIFF] Stat CMP [Comprehensive Metabolic Panel] Stat Discontinued Medications Cephalexin HCl (Cephalexin 250 Mg Capsule) 500 mg PO NOW ONE Stop: 04/15/25 11:54 Last Admin: 04/15/25 12:00 Dose: 500 mg Documented By: Ketorolac Tromethamine (Ketorolac 30 Mg/Ml Vial) 15 mg IV NOW ONE Stop: 04/15/25 11:17 Last Admin: 04/15/25 11:20 Dose: 15 mg Documented By: Vital Signs Vital signs: Vital Signs - 8 hr 04/15/25 10:50 04/15/25 10:50 04/15/25 10:54 Temperature 97.4 F L Pulse Rate 92 H 94 H 87 Respiratory Rate 19 19 Blood Pressure 142/79 H 142/79 H Pulse Oximetry 98 99 99 Oxygen Delivery Method Room Air Room Air 04/15/25 12:02 04/15/25 12:02 Temperature Pulse Rate 83 Respiratory Rate 18 Blood Pressure 180/98 H Pulse Oximetry 97 99 Oxygen Delivery Method Room Air <Margaux Hand DO - Last Filed: 04/15/25 18:50> Orders Ordered: ED Orders 04/15/25 11:10 CBC Auto Diff [Complete Blood Count AUTO DIFF] Stat CMP [Comprehensive Metabolic Panel] Stat Discontinued Medications Cephalexin HCl (Cephalexin 250 Mg Capsule) 500 mg PO NOW ONE Stop: 04/15/25 11:54 Last Admin: 04/15/25 12:00 Dose: 500 mg Documented By: Ketorolac Tromethamine (Ketorolac 30 Mg/Ml Vial) 15 mg IV NOW ONE Stop: 04/15/25 11:17 Last Admin: 04/15/25 11:20 Dose: 15 mg Documented By: Vital Signs Vital signs: Vital Signs - 8 hr 04/15/25 10:50 04/15/25 10:50 04/15/25 10:54 Temperature 97.4 F L Pulse Rate 92 H 94 H 87 Respiratory Rate 19 19 Blood Pressure 142/79 H 142/79 H Pulse Oximetry 98 99 99 Oxygen Delivery Method Room Air Room Air 04/15/25 12:02 04/15/25 12:02 Temperature Pulse Rate 83 Respiratory Rate 18 Blood Pressure 180/98 H Pulse Oximetry 97 99 Oxygen Delivery Method Room Air MDM - Extremity Injury (Lower) <Leticia Caicedo PA-C - Last Filed: 04/15/25 12:29> Medical Records Attestation: I reviewed the patient's medical records. Lab Data 04/15/25 11:10 04/15/25 11:10 Labs: Lab Results 04/15/25 Range/Units 11:10 WBC 7.4 (4.5-11.0) X10^3/uL RBC 4.55 (4.0-5.2) X10^6/uL Hgb 14.3 (12.0-16.0) g/dL Hct 42.3 (36-46) % MCV 93.0 (80-100) fL MCH 31.4 (26-34) PG MCHC 33.7 (30-36) % RDW 13.2 (11.6-14.8) % Plt Count 313 (150-400) X10^3/uL Neut % (Auto) 67.8 (50-75) % Lymph % (Auto) 18.8 L (25-40) % [place] % (Auto) 9.5 (3-14) % Eos % (Auto) 2.9 (2-4) % Baso % (Auto) 1.0 (0-2) % Neut # (Auto) 5000 (6936-8958) /uL Lymph # (Auto) 1400 (1847-9762) /uL [place] # (Auto) 700 (0-900) /uL Eos # (Auto) 200 (0-450) /uL Baso # (Auto) 100 (0-100) /uL Sodium 127 L (137-145) mmol/L Potassium 4.4 (3.4-5.1) mmol/L Chloride 96 L (98-107) mmol/L Carbon Dioxide 23 (22-32) mmol/L BUN 8 (7-17) mg/dL Creatinine 0.59 (0.52-1.04) mg/dL Estimated GFR > 60 (>60) mL/min BUN/Creatinine Ratio 13.6 (6-22) Glucose 178 H (70-99) mg/dL Calcium 9.0 (8.4-10.2) mg/dL Total Bilirubin 0.6 (0.2-1.3) mg/dL AST 43 H (14-36) IU/L ALT 30 (<35) IU/L Alkaline Phosphatase 62 (38-126) U/L Total Protein 7.7 (6.3-8.2) g/dL Albumin 4.3 (3.5-5.0) g/dL Globulin 3.4 (1.7-4.1) g/dL Albumin/Globulin Ratio 1.3 (1.0-2.8) MDM Narrative Medical decision making narrative: 54-year-old female with a past medical history of type 1 diabetes well controlled, peripheral neuropathy. HTN, hypercholesterolemia who presents to the emergency department for left foot redness and swelling x 5 days. Differential diagnosis includes but is not limited to cellulitis, arthritis, gout, etc. On exam the patient is in no acute distress, nontoxic-appearing, all vital signs within normal limits, she is afebrile and not tachycardic. There is erythema of the left 5th toe with mild erythema extending onto the dorsal foot. No streaking erythema, no fluctuance, drainage, abscess or wound. She is otherwise well. CBC, CMP and Toradol ordered. Labs reassuring with normal WBC count 7.4, hemoglobin 14.3 hematocrit 42.3. Appropriate platelets. She does have mild hyponatremia 127 which is stable and chronic for her. Glucose 178. Normal renal function BUN 8 creatinine 0.59. We will treat left foot cellulitis with Keflex 4 times a day x7 days. First dose given in the ED. Recommended supportive care with rest, elevation, ice, ibuprofen and acetaminophen if needed for pain. Discussed strict ED return precautions and follow up with PCP. Patient verbalized understanding of all information, all questions answered, feels well. She is stable for discharge home. <Margaux Hand, DO - Last Filed: 04/15/25 18:50> Lab Data Labs: Lab Results 04/15/25 Range/Units 11:10 WBC 7.4 (4.5-11.0) X10^3/uL RBC 4.55 (4.0-5.2) X10^6/uL Hgb 14.3 (12.0-16.0) g/dL Hct 42.3 (36-46) % MCV 93.0 (80-100) fL MCH 31.4 (26-34) PG MCHC 33.7 (30-36) % RDW 13.2 (11.6-14.8) % Plt Count 313 (150-400) X10^3/uL Neut % (Auto) 67.8 (50-75) % Lymph % (Auto) 18.8 L (25-40) % [place] % (Auto) 9.5 (3-14) % Eos % (Auto) 2.9 (2-4) % Baso % (Auto) 1.0 (0-2) % Neut # (Auto) 5000 (4519-3996) /uL Lymph # (Auto) 1400 (1787-6485) /uL [place] # (Auto) 700 (0-900) /uL Eos # (Auto) 200 (0-450) /uL Baso # (Auto) 100 (0-100) /uL Sodium 127 L (137-145) mmol/L Potassium 4.4 (3.4-5.1) mmol/L Chloride 96 L (98-107) mmol/L Carbon Dioxide 23 (22-32) mmol/L BUN 8 (7-17) mg/dL Creatinine 0.59 (0.52-1.04) mg/dL Estimated GFR > 60 (>60) mL/min BUN/Creatinine Ratio 13.6 (6-22) Glucose 178 H (70-99) mg/dL Calcium 9.0 (8.4-10.2) mg/dL Total Bilirubin 0.6 (0.2-1.3) mg/dL AST 43 H (14-36) IU/L ALT 30 (<35) IU/L Alkaline Phosphatase 62 (38-126) U/L Total Protein 7.7 (6.3-8.2) g/dL Albumin 4.3 (3.5-5.0) g/dL Globulin 3.4 (1.7-4.1) g/dL Albumin/Globulin Ratio 1.3 (1.0-2.8) Discharge Plan Departure Patient Disposition: Home Clinical Impression: Cellulitis of foot, left Instructions: DI for Cellulitis -- Adult Activity Restrictions/Additional Instructions: Dear Laila Inessa Willingham, Thank you for coming to the emergency department. Today you were evaluated for redness and swelling of the left foot. Your physical exam is consistent with cellulitis which is a skin/soft tissue infection. Your lab work was overall reassuring, your sodium was 127 which is slightly low however this is normal for you. At this time and would like you to complete the full course of oral antibiotics, rest, ice the foot and elevate the foot to help with swelling. Please follow up with your primary care doctor. Please return to the ER immediately if you develop any new or worsening symptoms, fevers, chills, redness streaking up the leg or any other concerns. Please take Ibuprofen (Motrin/Advil) or Acetaminophen (Tylenol) for pain. These are available over the counter. You may take Ibuprofen 600 mg every 8 hours with food for pain. You may also take Acetaminophen 650 mg every 4-6 hours for pain. Do not exceed 3000 mg of Tylenol a day as this can cause liver damage. Do not drink alcohol with either of these medications. Please follow up with your primary care doctor within the next 2-3 days for ER follow-up. (If you do not have a PCP you can call [phone]. ?to schedule an appointment with an [facility] Primary Care Provider) IF YOU DEVELOP ANY NEW OR WORSENING SYMPTOMS, RETURN TO THE ER! Please read the attached instructions, they highlight more specific treatments and interventions for you at home. Thank you for letting me participate in your care, Leticia Caciedo PA-C Prescriptions: New cephalexin 500 mg capsule 500 mg PO QID 7 Days Qty: 28 0RF No Action metoclopramide HCl 5 mg tablet 5 mg PO QACHS Qty: 90 3RF clobetasol 0.05 % ointment topical DAILY (DME) Guardian 4 Glucose Sensor Device See Rx Instructions .ROUTE .MEDSUPPLY Qty: 1 Patient Comments: [NO ORIGINAL SIG] Rx Instructions: As directed (DME) Guardian 4 Transmitter Device See Rx Instructions .ROUTE .MEDSUPPLY Qty: 1 Patient Comments: [NO ORIGINAL SIG] Rx Instructions: As directed Dupixent Syringe 300 mg/2 mL syringe 300 mg SUBCUT Q2W fluconazole 150 mg tablet 150 mg PO Q3D Qty: 2 0RF Rx Instructions: take on tab, if symptoms persist after 3 days may take second tab (DME) Accu-Chek Guide test strips Strip See Rx Instructions .ROUTE .COMPLEX Qty: 100 0RF Dose Instruction: USE TO TEST BLOOD GLUCOSE LEVELS THREE TIMES A DAY Rx Instructions: USE TO TEST BLOOD GLUCOSE LEVELS THREE TIMES A DAY (DME) Accucheck Guidelink meter See Rx Instructions .Route .MEDSUPPLY Qty: 1 1RF Rx Instructions: As directed to monitor blood glucose three times daily (DME) Accucheck [employer] test strips See Rx Instructions .Route .MEDSUPPLY Qty: 100 3RF Rx Instructions: As directed to test blood glucose three times daily metformin 500 mg tablet 500 mg PO BID Qty: 180 3RF polysaccharide iron complex [Ferrex 150] 150 mg iron capsule 150 mg PO DAILY Qty: 90 1RF duloxetine 60 mg capsule,delayed release(DR/EC) See Rx Instructions .ROUTE .COMPLEX Qty: 90 3RF Dose Instruction: TAKE ONE CAPSULE BY MOUTH TWICE DAILY Rx Instructions: TAKE ONE CAPSULE BY MOUTH TWICE DAILY losartan 25 mg tablet 50 mg PO DAILY Qty: 180 3RF ezetimibe 10 mg tablet 10 mg PO DAILY Qty: 90 3RF insulin aspart U-100 100 unit/mL solution 100 unit SUBCUT DAILY Qty: 30 0RF ondansetron HCl 4 mg tablet 4 mg PO Q8H PRN (Reason: nausea and vomiting) Qty: 30 0RF meloxicam 15 mg tablet 15 mg PO DAILY Qty: 30 0RF Rx Instructions: Take one by mouth daily Referrals: Edie Dela Cruz MD [Primary Care Provider, Family Practice] Stand Alone Forms: Patient Portal/API ED Sign-out <Margaux Hand DO - Last Filed: 04/15/25 18:50> Cosign ED Attending Cosignature Attestation: I was immediately available in the department for consultation.
[2025-04-15] MEDS: KETOROLAC 30 MG/ML VIAL 15 MG IV (11:20)
[2025-04-15 11:41] LABS: Add Manual Diff / Slide Review NO; Hematocrit 42.3 % (36-46); Hemoglobin 14.3 g/dL (12.0-16.0); Lymphocytes Absolute Auto 1400 /uL (1100-4500); Mean Corpuscular HGB Conc 33.7 % (30-36); Mean Corpuscular Hemoglobin 31.4 PG (26-34); Mean Corpuscular Volume 93.0 fL (80-100); Platelet Count 313 X10^3/uL (150-400)
[2025-04-15 11:48] LABS: Alanine Aminotransferase 30 IU/L (<35); Albumin 4.3 g/dL (3.5-5.0); Albumin Globulin Ratio 1.3 (1.0-2.8); Alkaline Phosphatase 62 U/L (38-126); Blood Urea Nitrogen 8 mg/dL (7-17); Calcium 9.0 mg/dL (8.4-10.2); Carbon Dioxide 23 mmol/L (22-32); Chloride 96 mmol/L (98-107); Estimated Glomerular Filt Rate > 60 mL/min (>60); Globulin 3.4 g/dL (1.7-4.1); Glucose 178 mg/dL (70-99); HEMOLYSIS 25 (0-50); Potassium 4.4 mmol/L (3.4-5.1); Sodium 127 mmol/L (137-145); Total Protein 7.7 g/dL (6.3-8.2)
[2025-04-15 12:02] VITALS: BP 180/98; PULSE 83; RESP 18; O2SAT 97; O2SAT 99
== END 2025-04-15 12:08 | disposition home or self-care (01) ==
PROVIDERS: Emergency Provider Physician Assistant; PCP Family Medicine
DX: L03.116 Cellulitis of left lower limb (principal)
CPT/HCPCS: 80053; 85025; 96374; 99284; J1885

== ENCOUNTER 2025-08-17 10:26 | Emergency (ER) | payer OTHER, SELFPAY ==
[2025-08-17] VITALS (13 sets, daily range): BP systolic 142–172; BP diastolic 67–88; PULSE 90–98; RESP 18; TEMP 36.2; O2SAT 93–99; BMI 29.8
--- NOTE | 2025-08-17 10:41 | EKG_ITS ---
[facility]
[2025-08-17 11:05] LABS: Add Manual Diff / Slide Review NO; Hematocrit 38.6 % (36-46); Hemoglobin 13.4 g/dL (12.0-16.0); Lymphocytes Absolute Auto 700 /uL (1100-4500); Mean Corpuscular HGB Conc 34.7 % (30-36); Mean Corpuscular Hemoglobin 31.6 PG (26-34); Mean Corpuscular Volume 91.1 fL (80-100); Platelet Count 461 X10^3/uL (150-400)
[2025-08-17 11:15] LABS: Alanine Aminotransferase 14 IU/L (<35); Albumin 4.3 g/dL (3.5-5.0); Albumin Globulin Ratio 1.1 (1.0-2.8); Alkaline Phosphatase 93 U/L (38-126); Blood Urea Nitrogen 9 mg/dL (7-17); Calcium 9.0 mg/dL (8.4-10.2); Carbon Dioxide 19 mmol/L (22-32); Chloride 93 mmol/L (98-107); Estimated Glomerular Filt Rate > 60 mL/min (>60); Globulin 3.9 g/dL (1.7-4.1); Glucose 193 mg/dL (70-99); HEMOLYSIS < 15 (0-50); Lipase 32 U/L (23-300); Potassium 4.1 mmol/L (3.4-5.1); Sodium 123 mmol/L (137-145); Total Protein 8.2 g/dL (6.3-8.2)
--- NOTE | 2025-08-17 11:47 | DI.CT.S_ITS ---
P edge ROCEDURE: CT ABDOMEN PELVIS W CON
[2025-08-17] MEDS: ONDANSETRON 4 MG/2 ML INJ IV (11:50)
--- NOTE | 2025-08-17 11:51 | ED_ITS ---
HPI - General Adult
--- NOTE | 2025-08-17 11:51 | ED.GENADULT ---
HPI - General Adult General Chief complaint: Diabetic Problem Stated complaint: Type 1 Diabetic/High blood sugar/gastroparesis Time Seen by Provider: 08/17/25 11:00 Source: patient, RN notes reviewed and old records reviewed Mode of arrival: Ambulatory Limitations: no limitations History of Present Illness HPI narrative: 54-year-old female insulin-dependent diabetic, hypertension dyslipidemia presents with a complaint of hyper glycemia throughout the weekend and increased abdominal and back pain throughout the weekend as well. Patient notes that [employer] did not include her sensors with her usual shipment and she had run out. She states over the weekend she was ranging between 4 and 600 for her glucose she is attempting to check her sugar every 2 hours and was unsuccessful was able to source a sensor from another individual Sunday night and has been able to bring her sugars down overnight to more appropriate range. She states she started having nausea and vomiting Sunday she does typically take Reglan 4 times daily and she has also been taking Zofran at home without any improvement. She notes alternating between diarrhea and constipation but has not noted any black or bloody stools. She has not noticed any rashes. She has not noticed any dysuria urgency frequency or polyuria. She had some chills last night. Denies chest pain or shortness of breath, no cold cough symptoms. No swelling of extremities. Patient states no prior surgeries. Has not allergy to sulfa develops hives. No tobacco, drinks alcohol occasionally, no recreational drugs. Dr. Dela Cruz is her primary care physician. Patient notes her hemoglobin A1c improved from 13-6 range after she got her insulin pump and sensor. Related Data Home Medications ?Medication ?Instructions ?Recorded ?Confirmed dupilumab 300 mg/2 mL subcutaneous 300 mg SUBCUT Q2W 04/11/23 03/26/25 syringe (DupixArtisoft) blood-glucose sensor (Guardian 4 #1 ea 02/06/25 03/26/25 Glucose Sensor device) blood-glucose transmitter #1 ea 02/06/25 03/26/25 (Guardian 4 Transmitter device) clobetasol 0.05 % topical ointment topical DAILY 02/06/25 03/26/25 Previous Rx's ?Medication ?Instructions ?Recorded fluconazole 150 mg tablet 150 mg PO Q3D 2 doses #2 tabs 08/14/24 blood sugar diagnostic (Accu-Chek #100 strips 09/05/24 Guide test strips) Accucheck Guidelink meter #1 ea 09/08/24 Accucheck Guidelink test strips #100 ea 09/08/24 metformin 500 mg tablet 500 mg PO BID #180 tabs 10/20/24 losartan 25 mg tablet 50 mg (2 x 25 mg) PO DAILY #180 11/17/24 tabs ezetimibe 10 mg tablet 10 mg PO DAILY #90 tabs 03/20/25 ondansetron HCl 4 mg tablet 4 mg PO Q8H PRN nausea and 03/21/25 vomiting #30 tabs meloxicam 15 mg tablet 15 mg PO DAILY #30 tabs 03/26/25 polysaccharide iron complex 150 mg 150 mg PO DAILY #90 caps 05/04/25 iron capsule (Ferrex) duloxetine 60 mg capsule,delayed See Rx Instructions .Route 05/18/25 release .COMPLEX #90 caps metoclopramide HCl 5 mg tablet 5 mg PO QACHS #90 tabs 07/15/25 insulin aspart U-100 100 unit/mL 100 unit SUBCUT DAILY #30 mL 07/22/25 subcutaneous solution cefixime 400 mg capsule 400 mg PO DAILY 10 days #10 caps 08/17/25 oxycodone-acetaminophen 5 mg-325 1 tab PO Q6H PRN pain #10 tabs 08/17/25 mg tablet (Percocet) Allergies Allergy/AdvReac Type Severity Reaction Status Date / Time Sulfa (Sulfonamide Allergy Mild HIVES/RASH Verified 08/17/25 10:37 Antibiotics) rosuvastatin AdvReac Intermediate polymyalgia Verified 08/17/25 10:37 s Review of Systems Review of Systems ROS Unobtainable: All systems reviewed & are unremarkable except as noted in HPI and below Patient History Medical History 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 Gastroparesis Pure hypercholesterolemia Peripheral neuropathy Type 1 diabetes mellitus Iron deficiency anemia (2015) Social History marital status: number of children: 3 household members: family lives independently: Yes caregiver/support person: No housing: house education level: college occupational status: employed current occupational exposures/hazards: No alcohol intake: current substance use type: marijuana tobacco type: cigarettes alcohol intake frequency: 0-2 drinks per day Exam Narrative Exam Narrative: GENERAL: Alert and oriented x three, female in mild distress HEENT: Head normocephalic, atraumatic, EOMI, pupils reactive, face symmetric, moist mucous membranes NECK: Supple, full range of motion CARDIOVASCULAR: Regular rate and rhythm without murmurs, rubs or gallops. RESPIRATORY: Breath sounds equal bilaterally, no wheezes rales or rhonchi. ABDOMEN: Soft, generalized tenderness greatest in the right upper quadrant but also tender in left upper and left lower quadrant. Nondistended. Hyperactive bowel sounds all 4 quadrants. No guarding or rebound, rigidity, no mass : No CVA tenderness EXTREMITIES: Normal range of motion, no clubbing or edema. Neurovascularly intact NEUROLOGICAL: Cranial nerves II through XII grossly intact. Moving all extremities SKIN: Warm, dry, no petechiae, no rashes or lesions. Initial Vital Signs Initial Vital Signs: Vital Signs Pulse Rate 96 H 08/17/25 10:35 Blood Pressure 172/78 H 08/17/25 10:35 Pulse Oximetry 97 08/17/25 10:35 Course Orders Ordered: ED Orders 08/17/25 10:41 EKG-12 Lead Stat 08/17/25 10:45 Complete Blood Count AUTO DIFF Stat Comprehensive Metabolic Panel Stat Lipase Stat 08/17/25 11:47 CT abdomen pelvis w con Stat 08/17/25 12:57 Urinalysis and Microscopic Stat Urine Culture Stat Discontinued Medications Hydromorphone HCl (Hydromorphone Hcl 0.5 Mg/0.5 Ml Syringe) 0.5 mg IV NOW ONE Stop: 08/17/25 11:48 Last Admin: 08/17/25 11:50 Dose: 0.5 mg Documented By: JULIANO Hydromorphone HCl (Hydromorphone Hcl 0.5 Mg/0.5 Ml Syringe) 0.5 mg IV NOW ONE Stop: 08/17/25 12:32 Last Admin: 08/17/25 12:35 Dose: 0.5 mg Documented By: JULIANO Hydromorphone HCl (Hydromorphone 1 Mg/Ml Syringe) 1 mg IV NOW ONE Stop: 08/17/25 13:57 Last Admin: 08/17/25 14:09 Dose: 1 mg Documented By: JULIANO Sodium Chloride (Normal Saline 0.9%) 1,000 mls @ 1,000 mls/hr IV BOLUS ONE Stop: 08/17/25 12:59 Last Infusion: 08/17/25 13:40 Dose: Infused Documented By: Admin: 08/17/25 12:28 Dose: 1,000 mls/hr Documented By: JULIANO Sodium Chloride (Normal Saline 0.9%) 1,000 mls @ 1,000 mls/hr IV BOLUS ONE Stop: 08/17/25 14:55 Last Infusion: 08/17/25 15:22 Dose: Infused Documented By: Admin: 08/17/25 14:09 Dose: 1,000 mls/hr Documented By: JULIANO Ceftriaxone Sodium 2,000 mg/ (Sodium Chloride) 100 mls @ 200 mls/hr IV NOW ONE Stop: 08/17/25 15:10 Last Infusion: 08/17/25 15:55 Dose: Infused Documented By: Admin: 08/17/25 15:17 Dose: 200 mls/hr Documented By: JULIANO Ondansetron HCl (Ondansetron 4 Mg/2 Ml Inj) 4 mg IV NOW PRN PRN Reason: Nausea And Vomiting Last Admin: 08/17/25 11:50 Dose: 4 mg Documented By: JULIANO Ondansetron HCl (Ondansetron 4 Mg Odt) 4 mg PO NOW PRN PRN Reason: Nausea And Vomiting Oxycodone/Acetaminophen (Oxycodone/Acetaminophen 5/325 Tablet) 2 tab PO NOW ONE Stop: 08/17/25 15:37 Last Admin: 08/17/25 15:40 Dose: 2 tab Documented By: JULIANO Vital Signs Vital signs: Vital Signs - 8 hr 08/17/25 10:35 08/17/25 10:35 08/17/25 10:37 Temperature 97.2 F L Pulse Rate 96 H 97 H Respiratory Rate 18 Blood Pressure 172/78 H 172/78 H Pulse Oximetry 97 97 Oxygen Delivery Method Room Air 08/17/25 11:00 08/17/25 11:00 08/17/25 11:30 Temperature Pulse Rate 92 H 94 H Respiratory Rate Blood Pressure 162/77 H Pulse Oximetry 99 96 Oxygen Delivery Method 08/17/25 11:30 08/17/25 12:00 08/17/25 12:00 Temperature Pulse Rate 95 H Respiratory Rate Blood Pressure 164/79 H 157/74 H Pulse Oximetry 97 Oxygen Delivery Method 08/17/25 12:36 08/17/25 12:37 08/17/25 12:37 Temperature Pulse Rate 98 H 97 H Respiratory Rate Blood Pressure 171/79 H Pulse Oximetry 93 96 Oxygen Delivery Method 08/17/25 13:00 08/17/25 13:00 08/17/25 13:30 Temperature Pulse Rate 93 H Respiratory Rate Blood Pressure 166/88 H 159/77 H Pulse Oximetry 97 Oxygen Delivery Method 08/17/25 13:30 08/17/25 14:00 08/17/25 14:00 Temperature Pulse Rate 92 H 92 H Respiratory Rate Blood Pressure 157/76 H Pulse Oximetry 98 96 Oxygen Delivery Method 08/17/25 14:30 08/17/25 14:30 08/17/25 15:00 Temperature Pulse Rate 90 96 H Respiratory Rate Blood Pressure 154/75 H Pulse Oximetry 97 94 Oxygen Delivery Method 08/17/25 15:00 08/17/25 15:30 08/17/25 15:30 Temperature Pulse Rate 96 H Respiratory Rate Blood Pressure 142/67 H 157/77 H Pulse Oximetry 95 Oxygen Delivery Method 08/17/25 16:23 Temperature Pulse Rate Respiratory Rate Blood Pressure Pulse Oximetry Oxygen Delivery Method Room Air Medical Decision Making Lab Data 08/17/25 10:45 08/17/25 10:45 Labs: Lab Results 08/17/25 08/17/25 08/17/25 Range/Units 10:35 10:45 12:57 WBC 13.9 H (4.5-11.0) X10^3/uL RBC 4.24 (4.0-5.2) X10^6/uL Hgb 13.4 (12.0-16.0) g/dL Hct 38.6 (36-46) % MCV 91.1 (80-100) fL MCH 31.6 (26-34) PG MCHC 34.7 (30-36) % RDW 13.1 (11.6-14.8) % Plt Count 461 H (150-400) X10^3/uL Neut % (Auto) 81.2 H (50-75) % Lymph % (Auto) 5.1 L (25-40) % [place] % (Auto) 12.2 (3-14) % Eos % (Auto) 1.1 L (2-4) % Baso % (Auto) 0.4 (0-2) % Neut # (Auto) 41672 H (3424-5444) /uL Lymph # (Auto) 700 L (2303-3204) /uL [place] # (Auto) 1700 H (0-900) /uL Eos # (Auto) 200 (0-450) /uL Baso # (Auto) 100 (0-100) /uL Sodium 123 L (137-145) mmol/L Potassium 4.1 (3.4-5.1) mmol/L Chloride 93 L (98-107) mmol/L Carbon Dioxide 19 L (22-32) mmol/L BUN 9 (7-17) mg/dL Creatinine 0.74 (0.52-1.04) mg/dL Estimated GFR > 60 (>60) mL/min BUN/Creatinine Ratio 12.2 (6-22) Glucose 193 H (70-99) mg/dL POC Whole Bld Glucose 156 H (70-99) mg/dL Calcium 9.0 (8.4-10.2) mg/dL Total Bilirubin 0.6 (0.2-1.3) mg/dL AST 19 (14-36) IU/L ALT 14 (<35) IU/L Alkaline Phosphatase 93 (38-126) U/L Total Protein 8.2 (6.3-8.2) g/dL Albumin 4.3 (3.5-5.0) g/dL Globulin 3.9 (1.7-4.1) g/dL Albumin/Globulin Ratio 1.1 (1.0-2.8) Lipase 32 (23-300) U/L Urine Color Yellow Urine Appearance Clear Urine pH 5.5 (4.5-8.0) Ur Specific [place] <=1.005 (1.000-1.035) Urine Protein Trace H (Negative) Urine Glucose (UA) Negative (Negative) g/dL Urine Ketones Trace H (NEGATIVE) Urine Occult Blood 1+ H (Negative) Urine Nitrate Positive H (Negative) Urine Bilirubin Negative (NEGATIVE) Urine Urobilinogen 0.2 (0.2) E.U./dL Ur Leukocyte Esterase 2+ H (NEGATIVE) Urine RBC 1-5/hpf (0-5/HPF) Urine WBC 5-10/hpf H (0-5/HPF) Ur Squamous Epith Cells None seen (0-5/HPF) Urine Bacteria Many (>30) H (None) Ur Culture Indicated? Specimen cultured Vol Urine Centrifuged 10ml (spun) Urine Dip Bedside Urine Glucose Negative Bedside Urine Bilirubin - Negative Bedside Urine Ketone +/- 5 Urine Specific [place] 1.005 Bedside Urine Occult Blood + Bedside Urine pH 6.0 Bedside Urine Protein + 30 Bedside Urine Urobilinogen - Negative Bedside Urine Nitrite + Positive Bedside Urine Leukocytes +++ 500 Esterase Point of care testing: Urine Dip Bedside Urine Glucose Negative Bedside Urine Bilirubin - Negative Bedside Urine Ketone +/- 5 Urine Specific [place] 1.005 Bedside Urine Occult Blood + Bedside Urine pH 6.0 Bedside Urine Protein + 30 Bedside Urine Urobilinogen - Negative Bedside Urine Nitrite + Positive Bedside Urine Leukocytes +++ 500 Esterase ECG Data Attestation: I personally reviewed and interpreted this ECG as follows: Prior ECG tracings: available for review Interpretation: EKG shows sinus rhythm rate of 91 MD 150 QRS 84 QTC of 408, no acute ST-elevation or depression. No dynamic changes from prior. MDM Narrative Medical decision making narrative: EKG sinus rhythm rate of [address] changes from prior Labs show white count of 13.9 hemoglobin of 13.4 platelets of 461 predominance of neutrophils. Chemistries shows sodium 123 potassium 4.1 chloride 93 CO2 of 19 BUN 9 creatinine 0.74 glucose of 193 LFTs are otherwise appropriate. Patient appears to be little bit chronically hyponatremic was 127 in March and April of 2024 and in 2022. Urine, trace ketone 1+ blood positive nitrates 2+ leuks 5-10 white cells 1-5 RBCs no squamous many bacteria CT abdomen pelvis with contrast shows mild prominent fluid-filled large bowel without definite dilation wall thickening or peripheral colonic fat stranding imaging findings are nonspecific but could be associated with colitis and diarrhea illness. Nonspecific bilateral perinephric fat stranding possible subtle perfusion abnormalities in the right upper and mid kidney imaging findings are nonspecific but could represent pyelonephritis in the appropriate clinical circumstance. Correlate for pyelonephritis symptoms and laboratories. 2.3 cm right liver hemangioma. Patient received IV antibiotics fluids, antiemetics and several doses of pain medication. Discussed with the patient she has been painful but not having any persistent nausea or vomiting appears to have pyelonephritis either in conjunction with losing her sense or this could possibly have also been increasing her glucose. Glucose appears improved she does not appear to be in DKA we discussed keeping for observation for pyelonephritis and IV antibiotics patient prefers to attempt oral challenge and discharge home. Patient was successful with oral challenge we will discharge home with oral antibiotics and pain medication she has several prescriptions for antiemetics. Low threshold for return and return precautions discussed. Discharge Plan Departure Patient Disposition: Home Clinical Impression: Pyelonephritis Instructions: DI for Kidney Infection Activity Restrictions/Additional Instructions: You appear to have a kidney infection or pyelonephritis. You have been prescribed oral antibiotics you should start noticed real improvement in your pain in symptoms over the next 24-48 hours. Take oral antibiotics until completed. Prescription sent to [facility] in [place]. Continue with your home medications as prescribed. If you develop fevers, persistent vomiting, new or worsening abdominal back or flank pain, difficulty with urination, any black or bloody stools if you are having worsening symptoms return to the emergency department. Prescriptions: New cefixime 400 mg capsule 400 mg PO DAILY 10 Days Qty: 10 0RF oxycodone-acetaminophen [Percocet] 5-325 mg tablet 1 tab PO Q6H PRN (Reason: pain) Qty: 10 0RF No Action clobetasol 0.05 % ointment topical DAILY (DME) Guardian 4 Glucose Sensor Device See Rx Instructions .ROUTE .MEDSUPPLY Qty: 1 Patient Comments: [NO ORIGINAL SIG] Rx Instructions: As directed (DME) Guardian 4 Transmitter Device See Rx Instructions .ROUTE .MEDSUPPLY Qty: 1 Patient Comments: [NO ORIGINAL SIG] Rx Instructions: As directed Dupixent Syringe 300 mg/2 mL syringe 300 mg SUBCUT Q2W fluconazole 150 mg tablet 150 mg PO Q3D Qty: 2 0RF Rx Instructions: take on tab, if symptoms persist after 3 days may take second tab (DME) Accu-Chek Guide test strips Strip See Rx Instructions .ROUTE .COMPLEX Qty: 100 0RF Dose Instruction: USE TO TEST BLOOD GLUCOSE LEVELS THREE TIMES A DAY Rx Instructions: USE TO TEST BLOOD GLUCOSE LEVELS THREE TIMES A DAY (DME) Accucheck Guidelink meter See Rx Instructions .Route .MEDSUPPLY Qty: 1 1RF Rx Instructions: As directed to monitor blood glucose three times daily (DME) Accucheck Guidelink test strips See Rx Instructions .Route .MEDSUPPLY Qty: 100 3RF Rx Instructions: As directed to test blood glucose three times daily metformin 500 mg tablet 500 mg PO BID Qty: 180 3RF losartan 25 mg tablet 50 mg PO DAILY Qty: 180 3RF ezetimibe 10 mg tablet 10 mg PO DAILY Qty: 90 3RF polysaccharide iron complex [Ferrex 150] 150 mg iron capsule 150 mg PO DAILY Qty: 90 1RF duloxetine 60 mg capsule,delayed release(DR/EC) See Rx Instructions .ROUTE .COMPLEX Qty: 90 3RF Dose Instruction: TAKE ONE CAPSULE BY MOUTH TWICE DAILY Rx Instructions: TAKE ONE CAPSULE BY MOUTH TWICE DAILY metoclopramide HCl 5 mg tablet 5 mg PO QACHS Qty: 90 3RF insulin aspart U-100 100 unit/mL solution 100 unit SUBCUT DAILY Qty: 30 0RF ondansetron HCl 4 mg tablet 4 mg PO Q8H PRN (Reason: nausea and vomiting) Qty: 30 0RF meloxicam 15 mg tablet 15 mg PO DAILY Qty: 30 0RF Rx Instructions: Take one by mouth daily Referrals: Edie Dela Cruz MD [Primary Care Provider, Family Practice] Stand Alone Forms: Patient Portal/API
[2025-08-17] MEDS: SODIUM CHLORIDE 0.9% 1,000 ML 1000 ML IV ×2 (12:28→14:09)
[2025-08-17 13:04] LABS: Appearance Urine UA CLEAR; Bilirubin Urine UA NEGATIVE (NEGATIVE); Color Urine UA YELLOW; Glucose Urine UA NEGATIVE (Negative); Ketones Urine UA TRACE (NEGATIVE); Leukocyte Esterase Urine UA 2+ (NEGATIVE); Nitrite Urine UA POSITIVE (Negative); Occult Blood Urine UA 1+ (Negative); Protein Urine UA TRACE (Negative); Specific Gravity Urine UA <=1.005 (1.000-1.035); Urobilinogen Urine UA 0.2 E.U./dL (0.2)
[2025-08-17 13:05] LABS: pH Urine UA 5.5 (4.5-8.0)
[2025-08-17 13:08] LABS: Culture Indicated Urine Specimen Cultured
[2025-08-17] MEDS: cefTRIAXone 2,000 MG in SODIUM CHLORIDE 0.9% 100 ML 200 MG IV (15:17)
== END 2025-08-17 16:24 | disposition home or self-care (01) ==
PROVIDERS: Emergency Provider Emergency Medicine; PCP Family Medicine
DX: N12 Tubulo-interstitial nephritis, not specified as acute or chronic (principal); R10.9 Unspecified abdominal pain; M54.9 Dorsalgia, unspecified
CPT/HCPCS: 36415; 74177; 80053; 81001; 81003; 82962; 83690; 85025; 87077; 87086; 87186; 93005; 96361; 96365; 96375; 96376; 99284; J0696; J1171; J2405; J7030; J7050; Q9967

== ENCOUNTER 2025-08-18 02:47 | Emergency (ER) | payer OTHER, SELFPAY ==
--- NOTE | 2025-08-18 02:52 | ED_ITS ---
HPI - General Adult
--- NOTE | 2025-08-18 02:52 | ED.GENADULT ---
HPI - General Adult General Chief complaint: Abdominal Pain Stated complaint: Vomiting, Abdominal Pain Time Seen by Provider: 08/18/25 02:51 History of Present Illness HPI narrative: 54-year-old female with history of diabetes on insulin pump, seen here mid day yesterday with nausea and vomiting, given IV fluid, serial doses of Dilaudid, antiemetics, IV ceftriaxone for suspected pyelonephritis. CT abdomen and pelvis imaging showed kidney stranding suspicious for pyelonephritis, possible colonic thickening but no bowel obstruction or perforation or abscess. Patient was discharged on prescription cefixime. Reports on the way home she had continued nausea, had emesis once at home, and repeated bouts of emesis despite ODT ondansetron. She has taken Reglan in the past but unable to keep this down. She had further emesis after midnight prompting return here. Denies fevers or chills. Denies black or red or loose stools. No injury trauma new activities. Related Data Home Medications ?Medication ?Instructions ?Recorded ?Confirmed dupilumab 300 mg/2 mL subcutaneous 300 mg SUBCUT Q2W 04/11/23 03/26/25 syringe (LOFTYixEfficiency Exchange) blood-glucose sensor (Guardian 4 #1 ea 02/06/25 03/26/25 Glucose Sensor device) blood-glucose transmitter #1 ea 02/06/25 03/26/25 (Guardian 4 Transmitter device) clobetasol 0.05 % topical ointment topical DAILY 02/06/25 03/26/25 Previous Rx's ?Medication ?Instructions ?Recorded fluconazole 150 mg tablet 150 mg PO Q3D 2 doses #2 tabs 08/14/24 blood sugar diagnostic (Accu-Chek #100 strips 09/05/24 Guide test strips) Accucheck Guidelink meter #1 ea 09/08/24 Accucheck Guidelink test strips #100 ea 09/08/24 metformin 500 mg tablet 500 mg PO BID #180 tabs 10/20/24 losartan 25 mg tablet 50 mg (2 x 25 mg) PO DAILY #180 11/17/24 tabs ezetimibe 10 mg tablet 10 mg PO DAILY #90 tabs 03/20/25 ondansetron HCl 4 mg tablet 4 mg PO Q8H PRN nausea and 03/21/25 vomiting #30 tabs meloxicam 15 mg tablet 15 mg PO DAILY #30 tabs 03/26/25 polysaccharide iron complex 150 mg 150 mg PO DAILY #90 caps 05/04/25 iron capsule (Ferrex) duloxetine 60 mg capsule,delayed See Rx Instructions .Route 05/18/25 release .COMPLEX #90 caps metoclopramide HCl 5 mg tablet 5 mg PO QACHS #90 tabs 07/15/25 insulin aspart U-100 100 unit/mL 100 unit SUBCUT DAILY #30 mL 07/22/25 subcutaneous solution cefixime 400 mg capsule 400 mg PO DAILY 10 days #10 caps 08/17/25 oxycodone-acetaminophen 5 mg-325 1 tab PO Q6H PRN pain #10 tabs 08/17/25 mg tablet (Percocet) Allergies Allergy/AdvReac Type Severity Reaction Status Date / Time Sulfa (Sulfonamide Allergy Mild HIVES/RASH Verified 08/18/25 03:03 Antibiotics) rosuvastatin AdvReac Intermediate polymyalgia Verified 08/18/25 03:03 s Patient History Medical History 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 HEAD: Atraumatic. Normocephalic. EYES: Pupils equal round and reactive. Extraocular motions intact. No scleral icterus. No injection or drainage. ENT: No obvious craniofacial trauma. Airway patent. NECK: Trachea midline. Non tender CARDIOVASCULAR: Regular rate and rhythm without murmurs, gallops, or rubs. RESPIRATORY: Clear to auscultation. Breath sounds equal bilaterally. No wheezes, rales, or rhonchi. GASTROINTESTINAL: Abdomen soft, non-tender, nondistended. EXTREMITIES: No edema or joint tenderness. BACK: Nontender without deformity or crepitance. No flank tenderness. NEURO: AOx3. Motor functions grossly nonfocal. SKIN: No rash or erythema of visible areas Initial Vital Signs Initial Vital Signs: Vital Signs Temperature 98.7 F 08/18/25 03:04 Pulse Rate 87 08/18/25 03:04 Respiratory Rate 16 08/18/25 03:04 Blood Pressure 143/70 H 08/18/25 03:04 Pulse Oximetry 98 08/18/25 03:04 Oxygen Delivery Method Room Air 08/18/25 03:04 Course Orders Ordered: Discontinued Medications Diphenhydramine HCl (Diphenhydramine 50 Mg/Ml Vial) 25 mg IV NOW ONE Stop: 08/18/25 05:09 Last Admin: 08/18/25 04:35 Dose: 25 mg Documented By: SPEEDY Hydromorphone HCl (Hydromorphone 1 Mg/Ml Syringe) 1 mg IV NOW ONE Stop: 08/18/25 03:12 Last Admin: 08/18/25 03:40 Dose: 1 mg Documented By: SPEEDY Sodium Chloride (Normal Saline 0.9%) 1,000 mls @ 1,000 mls/hr IV BOLUS ONE Stop: 08/18/25 04:10 Last Infusion: 08/18/25 05:16 Dose: Infused Documented By: Admin: 08/18/25 03:40 Dose: 1,000 mls/hr Documented By: SPEEDY Ceftriaxone Sodium 1,000 mg/ (Sodium Chloride) 100 mls @ 200 mls/hr IV NOW ONE Stop: 08/18/25 05:09 Last Infusion: 08/18/25 06:35 Dose: Infused Documented By: Admin: 08/18/25 05:14 Dose: 200 mls/hr Documented By: SPEEDY Metoclopramide HCl (Metoclopramide 10 Mg/2 Ml Inj) 10 mg IV NOW ONE Stop: 08/18/25 05:09 Last Admin: 08/18/25 04:35 Dose: 10 mg Documented By: SPEEDY Ondansetron HCl (Ondansetron 4 Mg/2 Ml Inj) 4 mg IV NOW ONE Stop: 08/18/25 03:12 Last Admin: 08/18/25 03:40 Dose: 4 mg Documented By: SPEEDY Oxycodone/Acetaminophen (Oxycodone/Acetaminophen 5/325 Tablet) 1 tab PO NOW ONE Stop: 08/18/25 06:19 Last Admin: 08/18/25 06:40 Dose: 1 tab Documented By: JAMES Vital Signs Vital signs: Vital Signs - 8 hr 08/18/25 03:04 08/18/25 05:43 Temperature 98.7 F Pulse Rate 87 80 Respiratory Rate 16 14 Blood Pressure 143/70 H 118/59 L Pulse Oximetry 98 100 Oxygen Delivery Method Room Air Room Air Medical Decision Making Lab Data Lab results reviewed: Yes I reviewed the patient's lab results. Lab results narrative: White blood cell count 91662, hemoglobin 12.5, platelets adequate. Glucose 107. Normal renal function, serum CO2 slight decreased, sodium 131 slight decreased, potassium normal. Liver functions and lipase normal. 08/18/25 03:34 08/18/25 03:34 Labs: Lab Results 08/18/25 Range/Units 03:34 WBC 12.4 H (4.5-11.0) X10^3/uL RBC 4.03 (4.0-5.2) X10^6/uL Hgb 12.5 (12.0-16.0) g/dL Hct 36.8 (36-46) % MCV 91.2 (80-100) fL MCH 31.0 (26-34) PG MCHC 34.0 (30-36) % RDW 13.0 (11.6-14.8) % Plt Count 412 H (150-400) X10^3/uL Neut % (Auto) 81.5 H (50-75) % Lymph % (Auto) 6.8 L (25-40) % [place] % (Auto) 10.2 (3-14) % Eos % (Auto) 0.9 L (2-4) % Baso % (Auto) 0.6 (0-2) % Neut # (Auto) 16217 H (7351-0900) /uL Lymph # (Auto) 800 L (7813-9359) /uL [place] # (Auto) 1300 H (0-900) /uL Eos # (Auto) 100 (0-450) /uL Baso # (Auto) 100 (0-100) /uL Sodium 131 L (137-145) mmol/L Potassium 3.8 (3.4-5.1) mmol/L Chloride 102 (98-107) mmol/L Carbon Dioxide 21 L (22-32) mmol/L BUN 8 (7-17) mg/dL Creatinine 0.80 (0.52-1.04) mg/dL Estimated GFR > 60 (>60) mL/min BUN/Creatinine Ratio 10.0 (6-22) Glucose 107 H (70-99) mg/dL Lactate 0.7 (0.7-2.1) mmol/L Calcium 8.8 (8.4-10.2) mg/dL Total Bilirubin 0.4 (0.2-1.3) mg/dL AST 18 (14-36) IU/L ALT 11 (<35) IU/L Alkaline Phosphatase 71 (38-126) U/L Total Protein 7.4 (6.3-8.2) g/dL Albumin 3.8 (3.5-5.0) g/dL Globulin 3.6 (1.7-4.1) g/dL Albumin/Globulin Ratio 1.1 (1.0-2.8) Lipase 14 L D (23-300) U/L MDM Narrative Medical decision making narrative: 54-year-old female with history of diabetes on insulin pump, has Reglan at home unable to keep down due to nonbloody emesis, seen here yesterday for nausea and vomiting, felt to have pyelonephritis by imaging, IV ceftriaxone given, prescription for cefixime at discharge, nausea and vomiting multiple episodes at home. Afebrile, sirs screen negative. Abdominal exam without distention or significant tenderness, bowel tones unremarkable. Screening labs. DDx consider interim development of DKA, cyclic vomiting, gastroparesis, vomiting due to pyelonephritis, other. IV saline bolus, IV ondansetron. Lab data: White blood cell count 57710, hemoglobin 12.5, platelets adequate. Glucose 107. Normal renal function, serum CO2 slight decreased, sodium 131 slight decreased, potassium normal. Liver functions and lipase normal. Ceftriaxone dose given less than 24 hours ago but patient asking about further antibiotics, we will give 2nd IV ceftriaxone 1g dose. IV Reglan/Benadryl. 0530, symptoms improving, consider oral fluid challenge. Feels better, would like pain medication for discharge, oral oxycodone 5/325 dose given, she has oxycodone at home. She has Reglan and ODT Zofran at home. She would like to try further attempted treatment at home. Discharge per patient request. Return precautions discussed. Discharge Plan Departure Patient Disposition: Home Clinical Impression: Nausea and vomiting, Pyelonephritis Activity Restrictions/Additional Instructions: Recent diagnosis of kidney infection pyelonephritis, IV ceftriaxone given yesterday, repeat dose today, having nausea and vomiting once at home. History of diabetes, sugar not particularly high or low. No diabetic ketoacidosis confirmed today. IV fluids, IV Dilaudid, IV Reglan/Benadryl given. Symptoms improved. We did discussed admission but symptomatically improved, you feel like you might be able to keep your oral medications down now, and were re-dosed with IV ceftriaxone for another 24 hours of antibiotic coverage. Oral dose of oxycodone/acetaminophen given. You have a supply at home. You have a prescription for oral antibiotics to continue. Take antibiotics as prescribed. Follow up with your regular doctor in the next couple of days. Return to this/nearest emergency department for any change worsening symptoms or any concerns prior. Prescriptions: No Action clobetasol 0.05 % ointment topical DAILY (DME) Guardian 4 Glucose Sensor Device See Rx Instructions .ROUTE .MEDSUPPLY Qty: 1 Patient Comments: [NO ORIGINAL SIG] Rx Instructions: As directed (DME) Guardian 4 Transmitter Device See Rx Instructions .ROUTE .MEDSUPPLY Qty: 1 Patient Comments: [NO ORIGINAL SIG] Rx Instructions: As directed Dupixent Syringe 300 mg/2 mL syringe 300 mg SUBCUT Q2W fluconazole 150 mg tablet 150 mg PO Q3D Qty: 2 0RF Rx Instructions: take on tab, if symptoms persist after 3 days may take second tab (DME) Accu-Chek Guide test strips Strip See Rx Instructions .ROUTE .COMPLEX Qty: 100 0RF Dose Instruction: USE TO TEST BLOOD GLUCOSE LEVELS THREE TIMES A DAY Rx Instructions: USE TO TEST BLOOD GLUCOSE LEVELS THREE TIMES A DAY (DME) Accucheck Guidelink meter See Rx Instructions .Route .MEDSUPPLY Qty: 1 1RF Rx Instructions: As directed to monitor blood glucose three times daily (DME) Accucheck Guidelink test strips See Rx Instructions .Route .MEDSUPPLY Qty: 100 3RF Rx Instructions: As directed to test blood glucose three times daily metformin 500 mg tablet 500 mg PO BID Qty: 180 3RF losartan 25 mg tablet 50 mg PO DAILY Qty: 180 3RF ezetimibe 10 mg tablet 10 mg PO DAILY Qty: 90 3RF polysaccharide iron complex [Ferrex 150] 150 mg iron capsule 150 mg PO DAILY Qty: 90 1RF duloxetine 60 mg capsule,delayed release(DR/EC) See Rx Instructions .ROUTE .COMPLEX Qty: 90 3RF Dose Instruction: TAKE ONE CAPSULE BY MOUTH TWICE DAILY Rx Instructions: TAKE ONE CAPSULE BY MOUTH TWICE DAILY metoclopramide HCl 5 mg tablet 5 mg PO QACHS Qty: 90 3RF insulin aspart U-100 100 unit/mL solution 100 unit SUBCUT DAILY Qty: 30 0RF ondansetron HCl 4 mg tablet 4 mg PO Q8H PRN (Reason: nausea and vomiting) Qty: 30 0RF cefixime 400 mg capsule 400 mg PO DAILY 10 Days Qty: 10 0RF oxycodone-acetaminophen [Percocet] 5-325 mg tablet 1 tab PO Q6H PRN (Reason: pain) Qty: 10 0RF meloxicam 15 mg tablet 15 mg PO DAILY Qty: 30 0RF Rx Instructions: Take one by mouth daily Referrals: Edie Dela Cruz MD [Primary Care Provider, Family Practice] Stand Alone Forms: Patient Portal/API
[2025-08-18 03:04] VITALS: BP 143/70; PULSE 87; RESP 16; TEMP 37.1; O2SAT 98; BMI 29.7
[2025-08-18] MEDS: ONDANSETRON 4 MG/2 ML INJ IV (03:40)
[2025-08-18] MEDS: SODIUM CHLORIDE 0.9% 1,000 ML 1000 ML IV (03:40)
[2025-08-18] MEDS: diphenhydrAMINE 50 MG/ML VIAL 25 MG IV (04:35)
[2025-08-18] MEDS: METOCLOPRAMIDE 10 MG/2 ML INJ IV (04:35)
[2025-08-18 04:45] LABS: Add Manual Diff / Slide Review NO; Hematocrit 36.8 % (36-46); Hemoglobin 12.5 g/dL (12.0-16.0); Lactate (Lactic Acid) 0.7 mmol/L (0.7-2.1); Lymphocytes Absolute Auto 800 /uL (1100-4500); Mean Corpuscular HGB Conc 34.0 % (30-36); Mean Corpuscular Hemoglobin 31.0 PG (26-34); Mean Corpuscular Volume 91.2 fL (80-100); Platelet Count 412 X10^3/uL (150-400)
[2025-08-18 04:47] LABS: Alanine Aminotransferase 11 IU/L (<35); Albumin 3.8 g/dL (3.5-5.0); Albumin Globulin Ratio 1.1 (1.0-2.8); Alkaline Phosphatase 71 U/L (38-126); Blood Urea Nitrogen 8 mg/dL (7-17); Calcium 8.8 mg/dL (8.4-10.2); Carbon Dioxide 21 mmol/L (22-32); Chloride 102 mmol/L (98-107); Estimated Glomerular Filt Rate > 60 mL/min (>60); Globulin 3.6 g/dL (1.7-4.1); Glucose 107 mg/dL (70-99); HEMOLYSIS < 15 (0-50); Lipase 14 U/L (23-300); Potassium 3.8 mmol/L (3.4-5.1); Sodium 131 mmol/L (137-145); Total Protein 7.4 g/dL (6.3-8.2)
[2025-08-18 05:43] VITALS: BP 118/59; PULSE 80; RESP 14; O2SAT 100
[2025-08-18 07:18] VITALS: BP 135/79; PULSE 85; RESP 15; O2SAT 98
== END 2025-08-18 07:19 | disposition home or self-care (01) ==
PROVIDERS: Emergency Provider Emergency Medicine; PCP Family Medicine
DX: N12 Tubulo-interstitial nephritis, not specified as acute or chronic (principal); R11.2 Nausea with vomiting, unspecified; E10.9 Type 1 diabetes mellitus without complications; Z96.41 Presence of insulin pump (external) (internal)
CPT/HCPCS: 80053; 83605; 83690; 85025; 96361; 96365; 96375; 99284; J0696; J1171; J1200; J2405; J2765; J7030; J7050

== ENCOUNTER → 2025-09-08 09:50 | Outpatient (CLI) | payer OTHER, SELFPAY ==
[2025-09-08 10:08] LABS: Appearance Urine UA SL CLOUDY; Bilirubin Urine UA NEGATIVE (NEGATIVE); Color Urine UA YELLOW; Glucose Urine UA 3+ g/dL (Negative); Ketones Urine UA 1+ (NEGATIVE); Leukocyte Esterase Urine UA 2+ (NEGATIVE); Nitrite Urine UA POSITIVE (Negative); Occult Blood Urine UA 1+ (Negative); Protein Urine UA TRACE (Negative); Specific Gravity Urine UA 1.010 (1.000-1.035); Urobilinogen Urine UA 0.2 E.U./dL (0.2)
[2025-09-08 10:19] LABS: pH Urine UA 5.5 (4.5-8.0)
[2025-09-08 10:20] LABS: Culture Indicated Urine Specimen Cultured
== END ==
PROVIDERS: PCP Family Medicine; Referring Provider Family Medicine; Visit Provider Family Medicine
DX: R30.0 Dysuria (principal)
CPT/HCPCS: 81001; 87077; 87086; 87186

== ENCOUNTER → 2025-09-15 13:09 | Outpatient (CLI) | payer OTHER, SELFPAY ==
[2025-09-15 13:25] LABS: Appearance Urine UA CLOUDY; Bilirubin Urine UA NEGATIVE (NEGATIVE); Color Urine UA YELLOW; Glucose Urine UA TRACE g/dL (Negative); Ketones Urine UA NEGATIVE (NEGATIVE); Leukocyte Esterase Urine UA 3+ (NEGATIVE); Nitrite Urine UA POSITIVE (Negative); Occult Blood Urine UA 2+ (Negative); Protein Urine UA 1+ (Negative); Specific Gravity Urine UA 1.015 (1.000-1.035); Urobilinogen Urine UA 0.2 E.U./dL (0.2); pH Urine UA 6.0 (4.5-8.0)
[2025-09-15 13:34] LABS: Culture Indicated Urine Specimen Cultured
== END ==
PROVIDERS: PCP Family Medicine; Referring Provider Family Medicine; Visit Provider Family Medicine
DX: R82.90 Unspecified abnormal findings in urine (principal); N39.0 Urinary tract infection, site not specified
CPT/HCPCS: 81001; 87077; 87086

== ENCOUNTER → 2025-10-06 08:32 | Outpatient (CLI) | payer OTHER, SELFPAY ==
[2025-10-06 09:16] LABS: Appearance Urine UA CLOUDY; Bilirubin Urine UA NEGATIVE (NEGATIVE); Color Urine UA YELLOW; Glucose Urine UA NEGATIVE (Negative); Ketones Urine UA NEGATIVE (NEGATIVE); Leukocyte Esterase Urine UA 3+ (NEGATIVE); Nitrite Urine UA POSITIVE (Negative); Occult Blood Urine UA 1+ (Negative); Protein Urine UA TRACE (Negative); Specific Gravity Urine UA 1.010 (1.000-1.035); Urobilinogen Urine UA 0.2 E.U./dL (0.2)
[2025-10-06 09:17] LABS: pH Urine UA 6.0 (4.5-8.0)
[2025-10-06 09:23] LABS: Culture Indicated Urine Specimen Cultured
== END ==
PROVIDERS: PCP Family Medicine; Referring Provider Family Medicine; Visit Provider Family Medicine
DX: R30.0 Dysuria (principal)
CPT/HCPCS: 81001; 87077; 87086